=== PATIENT | female | born 1930 | race Caucasian/White ===

== ENCOUNTER 2016-05-15 15:41 | Inpatient (IN) | payer MEDICARE, BC ==
--- NOTE | 2016-05-15 16:14 | ED ---
General Adult HPI - General Chief complaint: Chest Pain Stated complaint: chest pain Time Seen by Provider: 05/15/16 15:50 Source: patient, RN notes reviewed Mode of arrival: wheelchair Limitations: no limitations - History of Present Illness Initial comments: This is an 86-year-old female who presents emergency Department after having visited her primary medical care doctor. Patient comes in stating she is here because she has generalized weakness which is been ongoing for about a week. Patient also states she's had a sore throat for about a week. Patient also complains of chest pain which is been intermittent over the last couple of weeks and shortness of breath which is also intermittent over the last couple weeks. Patient states she has a past medical history significant for asthma. Patient states she went to her doctor's told him the same complaints he didn't EKG and sent to the emergency department. We have not received a phone call from the primary medical care doctor. Patient denies headache patient denies any numbness or weakness. Patient denies any lightheadedness dizziness or near syncopal episode. Patient denies any abdominal pain patient denies nausea or vomiting. - Related Data Home Medications Medication Instructions Recorded Confirmed Calcium Carbonate/Vitamin D3 1 tab PO BID 02/14/14 05/15/16 [Calcium 600-Vit D3 400 Tablet] Docusate [Colace] 100 mg PO QAM PRN 02/14/14 05/15/16 Fluticasone/Salmeterol [Advair 1 inhalation PO RT-BID 02/14/14 05/15/16 250-50 Diskus] Ipratropium-Albuterol Nebulize 3 ml IH RT-QID PRN 02/14/14 05/15/16 [Duoneb 0.5 mg-3 mg/3 ml Soln] Levothyroxine Sodium [Synthroid] 125 mcg PO DAILY 02/14/14 05/15/16 Montelukast [Singulair] 10 mg PO HS 02/14/14 05/15/16 Omeprazole [PriLOSEC] 20 mg PO AC-BRKFST 02/14/14 05/15/16 Ramipril [Altace] 10 mg PO QAM 02/14/14 05/15/16 Simvastatin [Zocor] 40 mg PO HS 02/14/14 05/15/16 Solifenacin Succinate [Vesicare] 5 mg PO QAM 02/14/14 05/15/16 Alendronate Sodium [Fosamax] 70 mg PO MO 08/04/14 05/15/16 Acetaminophen [Tylenol] 325 - 650 mg PO Q4H PRN 08/05/14 05/15/16 Albuterol Inhaler [Ventolin Hfa 1 - 2 puff INHALATION RT-Q6H PRN 08/05/14 Inhaler] Aricept 23mg 23 mg PO DAILY 05/15/16 05/15/16 LORazepam [Ativan] 0.5 mg PO BID 05/15/16 05/15/16 Vilazodone Hydrochloride [Viibryd] 20 mg PO DAILY 05/15/16 05/15/16 amLODIPine BESYLATE [Norvasc] 5 mg PO HS 05/15/16 05/15/16 Allergies Allergy/AdvReac Type Severity Reaction Status Date / Time No Known Allergies Allergy Verified 05/15/16 16:18 Review of Systems ROS Statement: Those systems with pertinent positive or pertinent negative responses have been documented in the HPI. ROS Other: All systems not noted in ROS Statement are negative. Past Medical History Past Medical History: Asthma, GERD/Reflux, Hyperlipidemia, Hypertension, Memory Impairment, Thyroid Disorder Additional Past Medical History / Comment(s): hypoglycemia, shingles long time ago History of Any Multi-Drug Resistant Organisms: None Reported Past Surgical History: No Surgical Hx Reported Additional Past Surgical History / Comment(s): rectocele repair, cataracts Past Anesthesia/Blood Transfusion Reactions: No Reported Reaction Past Psychological History: Depression Smoking Status: Former smoker Past Alcohol Use History: None Reported Additional Past Alcohol Use History / Comment(s): started smoking at age 19 smoked 1 ppd quit at age 47 Past Drug Use History: None Reported - Past Family History Father Family Medical History: Myocardial Infarction ([place]) Mother History Unknown: Yes General Exam - General Exam Comments Initial Comments: GENERAL: Patient is well-developed and well-nourished. Patient is nontoxic and well- hydrated and is in mild distress. ENT: Neck is soft and supple. No significant lymphadenopathy is noted. Oropharynx is clear. Moist mucous membranes. Neck has full range of motion without eliciting any pain. EYES: The sclera were anicteric and conjunctiva were pink and moist. Extraocular movements were intact and pupils were equal round and reactive to light. Eyelids were unremarkable. PULMONARY: Unlabored respirations. Good breath sounds bilaterally. She has slight expiratory wheezing. CARDIOVASCULAR: There is a regular rate and rhythm without any murmurs gallops or rubs. ABDOMEN: Soft and nontender with normal bowel sounds. No palpable organomegaly was noted. There is no palpable pulsatile mass. SKIN: Skin is clear with no lesions or rashes and otherwise unremarkable. NEUROLOGIC: Patient is alert and oriented x3. Cranial nerves II through XII are grossly intact. Motor and sensory are also intact. Normal speech, volume and content. Symmetrical smile. MUSCULOSKELETAL: Normal extremities with adequate strength and full range of motion. No lower extremity swelling or edema. No calf tenderness. LYMPHATICS: No significant lymphadenopathy is noted PSYCHIATRIC: Normal psychiatric evaluation. Normal interpersonal interactions appears functionally intact in deals appropriately with others. No signs of depression. No signs of anxiety. Limitations: no limitations Course Vital Signs 05/15/16 05/15/16 05/15/16 15:44 16:10 17:47 Temperature 97.6 F 97.1 F L Pulse Rate 60 95 Respiratory 16 22 16 Rate Blood Pressure 149/65 167/74 O2 Sat by Pulse 93 L 97 Oximetry 05/15/16 05/15/16 18:48 19:00 Temperature 978 F H 97.5 F L Pulse Rate 74 55 L Respiratory 20 20 Rate Blood Pressure 146/68 O2 Sat by Pulse 97 95 Oximetry Medical Decision Making - Medical Decision Making EKG shows sinus bradycardia 58 bpm. It was 152 QRS is 86 QT intervals 442 QTC is 433. Patient's EKG shows no ST segment elevation or depression or T wave abnormalities are noted. - Lab Data Result diagrams: 05/15/16 16:00 05/15/16 16:00 Lab Results 05/15/16 05/15/16 05/15/16 Range/Units 16:00 16:00 16:00 WBC 4.9 (3.8-10.6) k/uL RBC 3.99 (3.80-5.40) m/uL Hgb 12.9 (11.4-16.0) gm/dL Hct 38.2 (34.0-46.0) % MCV 95.8 (80.0-100.0) fL MCH 32.4 (25.0-35.0) pg MCHC 33.9 (31.0-37.0) g/dL RDW 13.5 (11.5-15.5) % Plt Count 166 (150-450) k/uL Neutrophils % 57 % Lymphocytes % 24 % Monocytes % 11 % Eosinophils % 3 % Basophils % 0 % Neutrophils # 2.8 (1.3-7.7) k/uL Lymphocytes # 1.2 (1.0-4.8) k/uL Monocytes # 0.5 (0-1.0) k/uL Eosinophils # 0.2 (0-0.7) k/uL Basophils # 0.0 (0-0.2) k/uL PT (9.0-12.0) sec INR (<1.1) APTT (22.0-30.0) sec Sodium 126 L (137-145) mmol/L Potassium 4.5 (3.5-5.1) mmol/L Chloride 93 L (98-107) mmol/L Carbon Dioxide 23 (22-30) mmol/L Anion Gap 10 mmol/L BUN 14 (7-17) mg/dL Creatinine 0.87 (0.52-1.04) mg/dL Est GFR (MDRD) Af Amer >60 (>60 ml/min/1.73 sqM) Est GFR (MDRD) Non-Af >60 (>60 ml/min/1.73 sqM) Glucose 139 H (74-99) mg/dL POC Glucose (mg/dL) (75-99) mg/dL POC Glu Country Director ID Calcium 9.0 (8.4-10.2) mg/dL Magnesium 2.0 (1.6-2.3) mg/dL Total Bilirubin 0.5 (0.2-1.3) mg/dL AST 45 H (14-36) U/L ALT 46 (9-52) U/L Alkaline Phosphatase 66 (38-126) U/L Total Creatine Kinase 210 H (30-135) U/L CK-MB (CK-2) 1.7 (0.0-2.4) ng/mL CK-MB (CK-2) Rel Index 0.8 Troponin I <0.012 (0.000-0.034) ng/mL NT-Pro-B Natriuret Pep pg/mL Total Protein 6.7 (6.3-8.2) g/dL Albumin 3.9 (3.5-5.0) g/dL Group A Strep Rapid (Negative) 05/15/16 05/15/16 05/15/16 Range/Units 16:00 16:00 16:20 WBC (3.8-10.6) k/uL RBC (3.80-5.40) m/uL Hgb (11.4-16.0) gm/dL Hct (34.0-46.0) % MCV (80.0-100.0) fL MCH (25.0-35.0) pg MCHC (31.0-37.0) g/dL RDW (11.5-15.5) % Plt Count (150-450) k/uL Neutrophils % % Lymphocytes % % Monocytes % % Eosinophils % % Basophils % % Neutrophils # (1.3-7.7) k/uL Lymphocytes # (1.0-4.8) k/uL Monocytes # (0-1.0) k/uL Eosinophils # (0-0.7) k/uL Basophils # (0-0.2) k/uL PT 10.2 (9.0-12.0) sec INR 1.0 (<1.1) APTT 25.9 (22.0-30.0) sec Sodium (137-145) mmol/L Potassium (3.5-5.1) mmol/L Chloride (98-107) mmol/L Carbon Dioxide (22-30) mmol/L Anion Gap mmol/L BUN (7-17) mg/dL Creatinine (0.52-1.04) mg/dL Est GFR (MDRD) Af Amer (>60 ml/min/1.73 sqM) Est GFR (MDRD) Non-Af (>60 ml/min/1.73 sqM) Glucose (74-99) mg/dL POC Glucose (mg/dL) (75-99) mg/dL POC Glu Country Director ID Calcium (8.4-10.2) mg/dL Magnesium (1.6-2.3) mg/dL Total Bilirubin (0.2-1.3) mg/dL AST (14-36) U/L ALT (9-52) U/L Alkaline Phosphatase (38-126) U/L Total Creatine Kinase (30-135) U/L CK-MB (CK-2) (0.0-2.4) ng/mL CK-MB (CK-2) Rel Index Troponin I (0.000-0.034) ng/mL NT-Pro-B Natriuret Pep 91 pg/mL Total Protein (6.3-8.2) g/dL Albumin (3.5-5.0) g/dL Group A Strep Rapid Negative (Negative) 05/15/16 Range/Units 19:26 WBC (3.8-10.6) k/uL RBC (3.80-5.40) m/uL Hgb (11.4-16.0) gm/dL Hct (34.0-46.0) % MCV (80.0-100.0) fL MCH (25.0-35.0) pg MCHC (31.0-37.0) g/dL RDW (11.5-15.5) % Plt Count (150-450) k/uL Neutrophils % % Lymphocytes % % Monocytes % % Eosinophils % % Basophils % % Neutrophils # (1.3-7.7) k/uL Lymphocytes # (1.0-4.8) k/uL Monocytes # (0-1.0) k/uL Eosinophils # (0-0.7) k/uL Basophils # (0-0.2) k/uL PT (9.0-12.0) sec INR (<1.1) APTT (22.0-30.0) sec Sodium (137-145) mmol/L Potassium (3.5-5.1) mmol/L Chloride (98-107) mmol/L Carbon Dioxide (22-30) mmol/L Anion Gap mmol/L BUN (7-17) mg/dL Creatinine (0.52-1.04) mg/dL Est GFR (MDRD) Af Amer (>60 ml/min/1.73 sqM) Est GFR (MDRD) Non-Af (>60 ml/min/1.73 sqM) Glucose (74-99) mg/dL POC Glucose (mg/dL) 119 H (75-99) mg/dL POC Glu Country Director ID Anger, Ginger Calcium (8.4-10.2) mg/dL Magnesium (1.6-2.3) mg/dL Total Bilirubin (0.2-1.3) mg/dL AST (14-36) U/L ALT (9-52) U/L Alkaline Phosphatase (38-126) U/L Total Creatine Kinase (30-135) U/L CK-MB (CK-2) (0.0-2.4) ng/mL CK-MB (CK-2) Rel Index Troponin I (0.000-0.034) ng/mL NT-Pro-B Natriuret Pep pg/mL Total Protein (6.3-8.2) g/dL Albumin (3.5-5.0) g/dL Group A Strep Rapid (Negative) Disposition Clinical Impression: Unstable angina pectoris Disposition: ADMITTED IP TO THIS HOSP
[2016-05-15] MEDS ORDERED: NITROGLYCERIN OINT 1 INCH/GM PACKET TOPICAL STA (18:24)
[2016-05-15] MEDS ORDERED: SODIUM CHLORIDE 0.9% 500 ML IV STA (18:24)
[2016-05-15] MEDS ORDERED: ASPIRIN 81 MG CHEW PO STA (18:24)
[2016-05-15 19:11] LABS: Basophils % (A) 0 %; CH 32.2; CHCM 33.8; Eosinophils # (A) 0.2 k/uL (0-0.7); Eosinophils % (A) 3 %; HCT 38.2 % (34.0-46.0); HDW 2.35; HGB 12.9 gm/dL (11.4-16.0); Luc % (Auto) 4; Lymphocytes # (A) 1.2 k/uL (1.0-4.8); Lymphocytes % (A) 24 %; MCH 32.4 pg (25.0-35.0); MCHC 33.9 g/dL (31.0-37.0); MCV 95.8 fL (80.0-100.0); Mean Platelet Volume 7.5; Monocytes # (A) 0.5 k/uL (0-1.0); Monocytes % (A) 11 %; Neutrophils # (A) 2.8 k/uL (1.3-7.7); Neutrophils % (A) 57 %; RBC 3.99 m/uL (3.80-5.40); RDW 13.5 % (11.5-15.5); WBC 4.9 k/uL (3.8-10.6); WBC (Perox) 4.78
[2016-05-15 19:12] LABS: Partial Thromboplastin Time 25.9 sec (22.0-30.0); Prothrombin Time 10.2 sec (9.0-12.0)
[2016-05-15 19:13] LABS: ALT 46 U/L (9-52); AST 45 U/L (14-36); Alkaline Phosphatase 66 U/L (38-126); Anion Gap 10 mmol/L; Blood Urea Nitrogen 14 mg/dL (7-17); Carbon Dioxide 23 mmol/L (22-30); Chloride 93 mmol/L (98-107); Glucose 139 mg/dL (74-99); Non-African American GFR(MDRD) >60 (>60 ml/min/1.73 sqM); Potassium 4.5 mmol/L (3.5-5.1); Sodium 126 mmol/L (137-145); Total Bilirubin 0.5 mg/dL (0.2-1.3); Total Protein 6.7 g/dL (6.3-8.2)
[2016-05-15 19:14] LABS: Creatine Kinase 210 U/L (30-135)
[2016-05-15 19:26] LABS: Creatine Kinase MB 1.7 ng/mL (0.0-2.4); Troponin I <0.012 ng/mL (0.000-0.034)
[2016-05-15 19:28] LABS: Glucose,Whole Blood 119 mg/dL (75-99)
--- NOTE | 2016-05-15 20:04 | XR ---
EXAMINATION TYPE: XR chest 2V DATE OF EXAM: 05/15/2016 7:44 PM COMPARISON: February 14, 2014 HISTORY: Pain TECHNIQUE: Frontal and 2 lateral views of the chest are obtained. FINDINGS: EKG leads noted. Mildly enlarged cardiac silhouette noted. There is no pulmonary edema. Senescent changes are noted. Chronic scattered mild pleural parenchymal changes are redemonstrated, w ithout definite new process evident. These changes include nonspecific bibasilar opacities. There is no focal air space opacity to suggest sridevi pneumonia. There is no pleural effusion, or pneumothorax. The osseous structures are intact. IMPRESSION: NO DEFINITE ACUTE CARDIOPULMONARY PROCESS.
[2016-05-15 20:46] LABS: Appearance,Urine Clear (Clear); Bacteria,Urine Occasional /hpf; Bilirubin,Urine Negative (Negative); Glucose,Urine (UA) Negative (Negative); Ketones,Urine Negative (Negative); Leukocyte Esterase,Urine Negative (Negative); Mucus,Urine Rare /hpf; Nitrite,Urine Negative (Negative); PH, Urine 5.5 (5.0-8.0); Particle Count 6973; Protein,Urine Negative (Negative); RBC,Urine 2 /hpf (0-5); Specific Gravity,Urine 1.006 (1.001-1.035); Squamous Epithelial Cell,Urine <1 /hpf (0-4); UA Billing (MACRO vs. MICRO) MICRO; Urobilinogen,Urine <2.0 mg/dL (<2.0); WBC,Urine 2 /hpf (0-5)
[2016-05-15] MEDS ORDERED: NITROGLYCERIN SL TABS 0.4 MG TAB SUBLINGUAL PRN (20:49)
[2016-05-15 22:26] LABS: Creatine Kinase 212 U/L (30-135)
[2016-05-15 22:39] LABS: Creatine Kinase MB 1.7 ng/mL (0.0-2.4); Troponin I <0.012 ng/mL (0.000-0.034)
[2016-05-15 22:43] VITALS: BMI 30.7
[2016-05-15] MEDS ORDERED: LORazepam 0.5 MG TAB PO PRN (23:29)
[2016-05-15] MEDS ORDERED: ACETAMINOPHEN TAB 325 MG TAB PO PRN (23:29)
[2016-05-15] MEDS ORDERED: DOCUSATE 100 MG CAP PO PRN (23:29)
[2016-05-15] MEDS ORDERED: ALBUTEROL NEBULIZED 2.5 MG/3 ML INHALATION PRN (23:29)
[2016-05-15] MEDS ORDERED: HYDROCORTISONE SUCCINATE 100 MG/2 ML VIAL IV STA (23:36)
[2016-05-16] MEDS: SODIUM CHLORIDE 0.9% 1,000 ML IV SCH ×2 (00:05→14:02)
[2016-05-16] MEDS: amLODIPine 5 MG TAB PO SCH ×2 (00:06→20:07)
[2016-05-16] MEDS: NITROGLYCERIN OINT 1 INCH/GM PACKET TOPICAL SCH ×5 (00:26→23:29)
[2016-05-16 04:21] LABS: Cholesterol 123 mg/dL (<200); HDL Cholesterol 75 mg/dL (40-60); Triglycerides 34 mg/dL (<150)
[2016-05-16 04:40] LABS: Creatine Kinase 201 U/L (30-135)
[2016-05-16 04:54] LABS: Creatine Kinase MB 1.8 ng/mL (0.0-2.4); Troponin I <0.012 ng/mL (0.000-0.034)
[2016-05-16 06:02] LABS: Glucose,Whole Blood 146 mg/dL (75-99)
[2016-05-16] MEDS: PANTOPRAZOLE 40 MG TABLET PO SCH (06:05)
[2016-05-16] MEDS: HYDROCORTISONE SUCCINATE 100 MG/2 ML VIAL IV SCH ×4 (06:05→23:28)
[2016-05-16] MEDS: INSULIN LISPRO (humaLOG) 300 UNIT/3 ML VIAL SQ SCH ×4 (06:13→22:04)
[2016-05-16 06:26] LABS: Basophils % (A) 0 %; CH 32.3; CHCM 33.4; Eosinophils % (A) 0 %; HCT 38.2 % (34.0-46.0); HDW 2.36; HGB 12.6 gm/dL (11.4-16.0); Luc # (Auto) 0.11; Luc % (Auto) 2; Lymphocytes # (A) 0.8 k/uL (1.0-4.8); Lymphocytes % (A) 15 %; MCH 32.2 pg (25.0-35.0); MCHC 33.2 g/dL (31.0-37.0); MCV 97.1 fL (80.0-100.0); Mean Platelet Volume 6.9; Monocytes # (A) 0.2 k/uL (0-1.0); Monocytes % (A) 4 %; Neutrophils # (A) 3.9 k/uL (1.3-7.7); Neutrophils % (A) 78 %; RBC 3.93 m/uL (3.80-5.40); RDW 13.5 % (11.5-15.5); WBC (Perox) 5.08
[2016-05-16 06:37] LABS: ALT 49 U/L (9-52); AST 41 U/L (14-36); Alkaline Phosphatase 64 U/L (38-126); Anion Gap 9 mmol/L; Blood Urea Nitrogen 11 mg/dL (7-17); Calcium 8.8 mg/dL (8.4-10.2); Carbon Dioxide 26 mmol/L (22-30); Chloride 99 mmol/L (98-107); Glucose 149 mg/dL (74-99); Non-African American GFR(MDRD) >60 (>60 ml/min/1.73 sqM); Sodium 134 mmol/L (137-145); Total Bilirubin 0.3 mg/dL (0.2-1.3); Total Protein 6.3 g/dL (6.3-8.2)
[2016-05-16] MEDS ORDERED: OSELTAMIVIR 75 MG CAP PO SCH (09:00)
[2016-05-16] MEDS ORDERED: VILAZODONE HYDROCHLORIDE 20 MG PO SCH (09:00)
[2016-05-16] MEDS ORDERED: OXYBUTYNIN XL 5 MG TAB.ER.24 PO SCH (09:00)
[2016-05-16] MEDS: DONEPEZIL 10 MG TAB PO SCH (09:10)
[2016-05-16] MEDS: ASPIRIN 325 MG TAB PO SCH (09:10)
[2016-05-16] MEDS: LEVOTHYROXINE 125 MCG TAB PO SCH (09:10)
[2016-05-16] MEDS: CALCIUM CARB-VIT D 500MG-200UN 1 EACH TAB PO SCH ×2 (09:10→20:07)
[2016-05-16] MEDS: LISINOPRIL 20 MG TAB PO SCH (09:11)
[2016-05-16] MEDS: IPRATROPIUM-ALBUTEROL 3 ML NEB IH PRN ×2 (09:34→13:31)
[2016-05-16] MEDS: SYMBICORT 80-4.5 MCG INHALER INHALATION SCH ×2 (09:34→20:33)
--- NOTE | 2016-05-16 11:12 | CONS ---
DATE OF CONSULTATION: Patient admitted to the hospital with symptoms of not feeling well, generalized weakness for a week, mild productive sputum with yellowish in color. Patient is positive for influenza A. Patient is being treated with the appropriate medications as she has asthma. Per patient lives in [facility]. Patient is a for 9 years, has 2 daughters and 1 son. Patient went to the doctor and being admitted for not feeling well. Need to rule out possibility of any blood clots. Will get an echocardiogram and d-dimer just to make sure patient is not having any other associated problems. Complaints of no definite chest pain and associated with some cough. Patient's medications prior to admission include Calcium carbonate, vitamin D 1 tablet p.o. b.i.d., Colace 100 mg p.r.n., fluticasone, Advair Diskus 1 inhalation twice daily, albuterol inhaler, levothyroxine 135 mcg, Singulair 10 mg p.o. daily, omeprazole 20 mg p.o. daily, enalapril 10 mg, simvastatin 40 mg, VESIcare 5 mg p.o. daily, Fosamax 70 mg monthly, amlodipine 5 mg p.o. daily, Viibryd 20 mg p.o. daily, lorazepam 0.5 mg p.o. b.i.d. Patient's review of systems are essentially unremarkable. History of asthma, history of hyperlipidemia, hypertension, memory impairment and patient is a former smoker and history of rectocele repair and cataracts. Patient has influenza A. Physical examination revealed well-developed, well-nourished, 86-year-old female not in any acute distress, alert and oriented x3 with a pulse rate of 54 beats per minute and regular, blood pressure of 142/73, respirations of 18. HEAD: Normocephalic. HEENT unremarkable. Neck is supple. No thyroid enlargement. No bruit noted. Good carotid upstroke bilaterally. Chest is symmetrical. CARDIAC EXAMINATION: Regular rate and rhythm, S1 and S2. No gallops or murmurs. Lungs are clinically clear to auscultation and percussion. Abdomen is soft, no organomegaly. Active bowel sounds. EXTREMITIES: Peripheral pulses. No pedal edema. 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 Troponins X2 are negative and EKGs are normal sinus rhythm without any acute ischemic changes. CPK total is only 201. There is no increased for WBC, hemoglobin is 12.6, hematocrit 38.2. IMPRESSION: 1. Patient has aches and pains possibly secondary to influenza. 2. Rule out pulmonary embolism, Rule out any deep venous thrombosis. No evidence of any polymyositis or rubs. 3. Kidney functions are within normal limits. RECOMMENDATIONS: Continue hydration and supportive care. We get an echocardiogram to assess LV function.
--- NOTE | 2016-05-16 11:26 | ECHOF ---
Referral Reason:lv function MEASUREMENTS -------- HEIGHT: 165.1 cm WEIGHT: 82.1 kg BP: 132/72 RVIDd: 3.3 cm (< 3.3) IVSd: 1.3 cm (0.6 - 1.1) LVIDd: 4.5 cm (3.9 - 5.3) LVPWd: 1.2 cm (0.6 - 1.1) IVSs: 2.0 cm LVIDs: 3.1 cm LVPWs: 1.9 cm LA Diam: 3.7 cm (2.7 - 3.8) Ao Diam: 3.1 cm (2.0 - 3.7) AV Cusp: 2.1 cm (1.5 - 2.6) MV E Skinny: 0.91 m/s MV DecT: 404 ms MV A Skinny: 1.42 m/s MV E/A Ratio: 0.64 AV maxP.13 mmHg AV meanP.65 mmHg FINDINGS -------- Sinus rhythm. This was a technically difficult study with suboptimal views. The left ventricular size is normal. There is mild concentric left ventricular hypertrophy. There is normal global left ventricular contractility. Overall left ventricular systolic function is normal with, an EF between 55 - 60 %. The right ventricle is mildly enlarged. The left atrial size is normal. The right atrium is normal in size. The aortic valve was not well visualized. There is mild aortic stenosis present. Peak/mean gradient across the Aortic Valve is 14.13mmHg / 7.65mmHg. The mitral valve is normal. The tricuspid valve was not well visualized. The pulmonic valve was not well visualized. The aortic root, ascending aorta and aortic arch are normal. Normal inferior vena cava with normal inspiratory collapse consistent with estimated right atrial pressure of 5 mmHg. There is no pericardial effusion. CONCLUSIONS -------- 1. Sinus rhythm. 2. The mitral valve is normal. 3. The tricuspid valve was not well visualized. 4. The pulmonic valve was not well visualized. 5. The aortic root, ascending aorta and aortic arch are normal. 6. Normal inferior vena cava with normal inspiratory collapse consistent with estimated right atrial pressure of 5 mmHg. 7. There is no pericardial effusion. 8. This was a technically difficult study with suboptimal views. 9. There is mild concentric left ventricular hypertrophy. 10. There is normal global left ventricular contractility. 11. The right ventricle is mildly enlarged. 12. The left atrial size is normal. 13. The aortic valve was not well visualized. 14. There is mild aortic stenosis present. 15. Peak/mean gradient across the Aortic Valve is 14.13mmHg / 7.65mmHg. CAD INTERN: Theresa Flynn RDCS
[2016-05-16 11:40] LABS: Glucose,Whole Blood 215 mg/dL (75-99)
--- NOTE | 2016-05-16 11:49 | P.HPIM ---
History of Present Illness 86-year-old female for presented to family practice physician with complaints of intermittent chest pain for one week. Also noted shortness of breath and cough. Patient was sent to the emergency room for evaluation. In the office noted EKG changes with inverted T waves in the one of the two. Patient was found to have influenza A. Patient to be admitted for on cardiology and pulmonology workup Review of Systems Constitutional: Reports fatigue, Reports fever Cardiovascular: Reports chest pain Respiratory: Reports congestion, Reports cough Past Medical History Past Medical History: Asthma, GERD/Reflux, Hyperlipidemia, Hypertension, Memory Impairment, Thyroid Disorder Additional Past Medical History / Comment(s): hypoglycemia, shingles long time ago History of Any Multi-Drug Resistant Organisms: None Reported Past Surgical History: No Surgical Hx Reported Additional Past Surgical History / Comment(s): rectocele repair, cataracts Past Anesthesia/Blood Transfusion Reactions: No Reported Reaction Past Psychological History: Depression Smoking Status: Former smoker Past Alcohol Use History: None Reported Additional Past Alcohol Use History / Comment(s): started smoking at age 19 smoked 1 ppd quit at age 47 Past Drug Use History: None Reported - Past Family History Father Family Medical History: Myocardial Infarction ([place]) Mother History Unknown: Yes Medications and Allergies Home Medications Medication Instructions Recorded Confirmed Type Calcium Carbonate/Vitamin D3 1 tab PO BID 02/14/14 05/15/16 History [Calcium 600-Vit D3 400 Tablet] Docusate [Colace] 100 mg PO QAM PRN 02/14/14 05/15/16 History Fluticasone/Salmeterol [Advair 1 inhalation PO RT-BID 02/14/14 05/15/16 History 250-50 Diskus] Ipratropium-Albuterol Nebulize 3 ml IH RT-QID PRN 02/14/14 05/15/16 History [Duoneb 0.5 mg-3 mg/3 ml Soln] Levothyroxine Sodium [Synthroid] 125 mcg PO DAILY 02/14/14 05/15/16 History Montelukast [Singulair] 10 mg PO HS 02/14/14 05/15/16 History Omeprazole [PriLOSEC] 20 mg PO AC-BRKFST 02/14/14 05/15/16 History Ramipril [Altace] 10 mg PO QAM 02/14/14 05/15/16 History Simvastatin [Zocor] 40 mg PO HS 02/14/14 05/15/16 History Solifenacin Succinate [Vesicare] 5 mg PO QAM 02/14/14 05/15/16 History Alendronate Sodium [Fosamax] 70 mg PO MO 08/04/14 05/15/16 History Acetaminophen [Tylenol] 325 - 650 mg PO Q4H PRN 08/05/14 05/15/16 History Albuterol Inhaler [Ventolin Hfa 1 - 2 puff INHALATION RT-Q6H PRN 08/05/14 History Inhaler] Aricept 23mg 23 mg PO DAILY 05/15/16 05/15/16 History LORazepam [Ativan] 0.5 mg PO BID 05/15/16 05/15/16 History Vilazodone Hydrochloride [Viibryd] 20 mg PO DAILY 05/15/16 05/15/16 History amLODIPine BESYLATE [Norvasc] 5 mg PO HS 05/15/16 05/15/16 History Allergies Allergy/AdvReac Type Severity Reaction Status Date / Time No Known Allergies Allergy Verified 05/15/16 16:18 Physical Exam Vitals: Vital Signs Temp Pulse Pulse Resp BP BP Pulse Ox 05/16/16 09:49 68 05/16/16 09:35 64 05/16/16 08:00 98.2 F 56 L 20 132/72 94 L 05/16/16 04:00 97.0 F L 51 L 18 142/73 95 05/16/16 00:46 56 L 05/16/16 00:36 56 L 05/16/16 00:00 97.9 F 60 19 147/76 91 L 05/15/16 21:11 97.9 F 57 L 20 156/75 93 L 05/15/16 21:05 97.3 F L 64 22 146/68 96 Intake and Output 05/15/16 05/16/16 05/16/16 22:59 06:59 14:59 Intake Total 500 540 Output Total 550 300 Balance 500 -10 -300 Intake: Amount of Fluid Infused ( 500 ml) Intake, IV Titration 540 Amount Sodium Chloride 0.9% 1, 490 000 ml @ 70 mls/hr IV . [id number] [facility] Rx#:[id number] 1,000 mg In 50 Sodium Chloride 0.9% 50 ml @ 100 mls/hr IVPB Q24H [facility] Rx#:[id number] Output: Urine 550 300 Other: Voiding Method Toilet Toilet # Voids 350 1 Weight 83.9 kg 82.7 kg - Constitutional General appearance: obese - EENT Eyes: PERRLA Ears: bilateral: normal - Neck Neck: normal ROM - Respiratory Respiratory: bilateral: rhonchi, wheezing - Cardiovascular Rhythm: regular - Gastrointestinal General gastrointestinal: soft - Integumentary Integumentary: normal - Neurologic Neurologic: CNII-XII intact - Musculoskeletal Musculoskeletal: generalized weakness - Psychiatric Psychiatric: A&O x's 3, appropriate affect, intact judgment & insight Results CBC & Chem 7: 05/16/16 05:49 05/16/16 05:49 Labs: Abnormal Lab Results - Last 24 Hours (Table) 05/15/16 05/15/16 05/16/16 Range/Units 21:45 23:49 03:44 Lymphocytes # (1.0-4.8) k/uL D-Dimer (<0.60) mg/L FEU Sodium (137-145) mmol/L Glucose (74-99) mg/dL POC Glucose (mg/dL) (75-99) mg/dL AST (14-36) U/L Total Creatine Kinase 212 H 201 H (30-135) U/L HDL Cholesterol (40-60) mg/dL Influenza Type A RNA Detected H (Not Detectd) 05/16/16 05/16/16 05/16/16 Range/Units 03:44 05:49 05:49 Lymphocytes # 0.8 L (1.0-4.8) k/uL D-Dimer (<0.60) mg/L FEU Sodium 134 L (137-145) mmol/L Glucose 149 H (74-99) mg/dL POC Glucose (mg/dL) (75-99) mg/dL AST 41 H (14-36) U/L Total Creatine Kinase (30-135) U/L HDL Cholesterol 75 H (40-60) mg/dL Influenza Type A RNA (Not Detectd) 05/16/16 05/16/16 05/16/16 Range/Units 05:53 10:48 11:15 Lymphocytes # (1.0-4.8) k/uL D-Dimer 1.12 H (<0.60) mg/L FEU Sodium (137-145) mmol/L Glucose (74-99) mg/dL POC Glucose (mg/dL) 146 H 215 H (75-99) mg/dL AST (14-36) U/L Total Creatine Kinase (30-135) U/L HDL Cholesterol (40-60) mg/dL Influenza Type A RNA (Not Detectd) Chest x-ray: report reviewed Thrombosis Risk Factor Assmnt - Choose All That Apply Any of the Below Risk Factors Present?: No Each Risk Factor Represents 3 Points: Age 75 years or older Thrombosis Risk Factor Assessment Total Risk Factor Score: 3 Thrombosis Risk Factor Assessment Level: Moderate Risk Assessment and Plan Plan: Assessment chest pain influenza A history of asthma history of GERD hyperlipidemia hypertension memory impairment hypothyroidism Plan consultation with cardiology regarding chest pain and EKG changes consultation with pulmonology regarding influenza A and a history of asthma patient was started Tamiflu
[2016-05-16 14:12] LABS: Glucose,Whole Blood 234 mg/dL (75-99)
--- NOTE | 2016-05-16 14:14 | P.CNPUL ---
History of Present Illness Consult date: 05/16/16 Requesting physician: Jose M Robertson Reason for consult: chest pain Chief complaint: Progressive weakness, sore throat shortness of breath History of present illness: This is a very pleasant 86-year-old female patient who follows with Dr. Jose M Robertson is her primary care physician. She has a history of hyperlipidemia, hypertension, hypothyroidism, gastroesophageal reflux disease. She also has a history of chronic obstructive pulmonary disease from previous 28 year smoking history and follows with Dr. Weeks in our office for the same. She is not oxygen dependent. She is maintained on Advair and albuterol. She had presented to her PCPs office yesterday for ongoing generalized weakness and sore throat for about a week. She did develop subsequent shortness of breath and some complaints of chest pain and was seen in the emergency room for the same. Her chest x-ray revealed no acute pulmonary process. EKG reveals no significant ST or T-wave abnormalities. Echocardiogram reveals preserved left ventricular systolic function. She did test positive for influenza A and was admitted for the same. There is no leukocytosis. She has remained afebrile. She is maintaining O2 saturations in the low 90s on room air. Hemodynamically stable. Review of Systems 14 point review of system was conducted. All negative other than as mentioned in HPI. Past Medical History Past Medical History: Asthma, GERD/Reflux, Hyperlipidemia, Hypertension, Memory Impairment, Thyroid Disorder Additional Past Medical History / Comment(s): hypoglycemia, shingles long time ago History of Any Multi-Drug Resistant Organisms: None Reported Past Surgical History: No Surgical Hx Reported Additional Past Surgical History / Comment(s): rectocele repair, cataracts Past Anesthesia/Blood Transfusion Reactions: No Reported Reaction Past Psychological History: Depression Smoking Status: Former smoker Past Alcohol Use History: None Reported Additional Past Alcohol Use History / Comment(s): started smoking at age 19 smoked 1 ppd quit at age 47 Past Drug Use History: None Reported - Past Family History Father Family Medical History: Myocardial Infarction ([place]) Mother History Unknown: Yes Medications and Allergies Home Medications Medication Instructions Recorded Confirmed Type Calcium Carbonate/Vitamin D3 1 tab PO BID 02/14/14 05/15/16 History [Calcium 600-Vit D3 400 Tablet] Docusate [Colace] 100 mg PO QAM PRN 02/14/14 05/15/16 History Fluticasone/Salmeterol [Advair 1 inhalation PO RT-BID 02/14/14 05/15/16 History 250-50 Diskus] Ipratropium-Albuterol Nebulize 3 ml IH RT-QID PRN 02/14/14 05/15/16 History [Duoneb 0.5 mg-3 mg/3 ml Soln] Levothyroxine Sodium [Synthroid] 125 mcg PO DAILY 02/14/14 05/15/16 History Montelukast [Singulair] 10 mg PO HS 02/14/14 05/15/16 History Omeprazole [PriLOSEC] 20 mg PO AC-BRKFST 02/14/14 05/15/16 History Ramipril [Altace] 10 mg PO QAM 02/14/14 05/15/16 History Simvastatin [Zocor] 40 mg PO HS 02/14/14 05/15/16 History Solifenacin Succinate [Vesicare] 5 mg PO QAM 02/14/14 05/15/16 History Alendronate Sodium [Fosamax] 70 mg PO MO 08/04/14 05/15/16 History Acetaminophen [Tylenol] 325 - 650 mg PO Q4H PRN 08/05/14 05/15/16 History Albuterol Inhaler [Ventolin Hfa 1 - 2 puff INHALATION RT-Q6H PRN 08/05/14 History Inhaler] Aricept 23mg 23 mg PO DAILY 05/15/16 05/15/16 History LORazepam [Ativan] 0.5 mg PO BID 05/15/16 05/15/16 History Vilazodone Hydrochloride [Viibryd] 20 mg PO DAILY 05/15/16 05/15/16 History amLODIPine BESYLATE [Norvasc] 5 mg PO HS 05/15/16 05/15/16 History Allergies Allergy/AdvReac Type Severity Reaction Status Date / Time No Known Allergies Allergy Verified 05/15/16 16:18 Physical Exam Vitals: Vital Signs Temp Pulse Pulse Resp BP BP Pulse Ox 05/16/16 13:44 60 05/16/16 13:31 60 05/16/16 12:00 97.1 F L 57 L 18 128/60 94 L 05/16/16 09:49 68 05/16/16 09:35 64 05/16/16 08:00 98.2 F 56 L 20 132/72 94 L 05/16/16 04:00 97.0 F L 51 L 18 142/73 95 05/16/16 00:46 56 L 05/16/16 00:36 56 L 05/16/16 00:00 97.9 F 60 19 147/76 91 L 05/15/16 21:11 97.9 F 57 L 20 156/75 93 L 05/15/16 21:05 97.3 F L 64 22 146/68 96 Intake and Output 05/15/16 05/16/16 05/16/16 22:59 06:59 14:59 Intake Total 500 540 240 Output Total 550 300 Balance 500 -10 -60 Intake: Amount of Fluid Infused ( 500 ml) Intake, IV Titration 540 Amount Sodium Chloride 0.9% 1, 490 000 ml @ 70 mls/hr IV . [id number] [facility] Rx#:[id number] cefTRIAXone 1,000 mg In 50 Sodium Chloride 0.9% 50 ml @ 100 mls/hr IVPB Q24H [facility] Rx#:[id number] Oral 240 Output: Urine 550 300 Other: Voiding Method Toilet Toilet # Voids 350 1 Weight 83.9 kg 82.7 kg 82.7 kg Patient Weight 05/17/16 06:59 Weight 82.7 kg GENERAL EXAM: Alert, comfortable in no apparent distress. HEAD: Normocephalic. EYES: Normal reaction of pupils, equal size. NOSE: Clear with pink turbinates. THROAT: No erythema or exudates. NECK: No masses, no JVD. CHEST: No chest wall deformity. LUNGS: Equal air entry with no crackles, wheeze, rhonchi or dullness. CVS: S1 and S2 normal with no audible mumurs, regular rhythm. ABDOMEN: No hepatosplenomegaly, normal bowel sounds, no guarding or rigidity. SPINE: No scoliosis or deformity SKIN: No rashes CENTRAL NERVOUS SYSTEM: No focal deficits, tone is normal in all 4 extremities. Extremities: There is no significant peripheral edema. No clubbing, no cyanosis. Peripheral pulses are intact. Results - Laboratory Findings CBC and BMP: 05/16/16 05:49 05/16/16 05:49 PT/INR, D-dimer PT 10.2 sec (9.0-12.0) 05/15/16 16:00 INR 1.0 (<1.1) 05/15/16 16:00 D-Dimer 1.12 mg/L FEU (<0.60) H 05/16/16 10:48 Abnormal lab findings: Abnormal Labs 05/15/16 05/15/16 05/16/16 21:45 23:49 03:44 Lymphocytes # D-Dimer Sodium Glucose POC Glucose (mg/dL) AST Total Creatine Kinase 212 H 201 H HDL Cholesterol Influenza Type A RNA Detected H 05/16/16 05/16/16 05/16/16 03:44 05:49 05:49 Lymphocytes # 0.8 L D-Dimer Sodium 134 L Glucose 149 H POC Glucose (mg/dL) AST 41 H Total Creatine Kinase HDL Cholesterol 75 H Influenza Type A RNA 05/16/16 05/16/16 05/16/16 05:53 10:48 11:15 Lymphocytes # D-Dimer 1.12 H Sodium Glucose POC Glucose (mg/dL) 146 H 215 H AST Total Creatine Kinase HDL Cholesterol Influenza Type A RNA - Diagnostic Findings Chest x-ray: image reviewed Assessment and Plan Plan: Impression: #1 Progressive weakness and fatigue secondary to influenza A. #2 Atypical chest pain, acute coronary syndrome ruled out. #3 Mild acute exacerbation of chronic obstructive pulmonary disease secondary to influenza. #4 Hypertension. #5 Hyperlipidemia. #6 Hypothyroidism. #7 7 History of memory impairment. #8 Depression. Plan: The patient was seen and evaluated by Dr. Hernandez. Her chest x-ray and labs were reviewed. We'll go ahead and continue with her home pulmonary medications including Advair, Singulair, bronchodilators. She is on hydrocortisone 60 mg IV every 6 hours. She is on empiric antibiotics in the form of ceftriaxone. She is continued on Tamiflu. She is quite stable from the pulmonary standpoint and could be discharged home later today or perhaps tomorrow morning. She could follow up with Dr. Harrington in our office in 1-2 weeks' time. We'll continue to follow. Time with Patient: Greater than 30
[2016-05-16 16:59] LABS: Glucose,Whole Blood 111 mg/dL (75-99)
[2016-05-16 20:54] LABS: Glucose,Whole Blood 150 mg/dL (75-99)
[2016-05-16] MEDS ORDERED: ATORVASTATIN 20 MG TAB PO SCH (21:00)
[2016-05-16] MEDS ORDERED: MONTELUKAST 10 MG TAB PO SCH (21:00)
[2016-05-16] MEDS: OSELTAMIVIR 60 MG/10 ML ORAL SYRINGE PO SCH (22:05)
[2016-05-17 06:17] LABS: Glucose,Whole Blood 131 mg/dL (75-99)
[2016-05-17 06:45] VITALS: RESP 20
[2016-05-17] MEDS: INSULIN LISPRO (humaLOG) 300 UNIT/3 ML VIAL SQ SCH (06:58)
[2016-05-17] MEDS: NITROGLYCERIN OINT 1 INCH/GM PACKET TOPICAL SCH (06:58)
[2016-05-17] MEDS: HYDROCORTISONE SUCCINATE 100 MG/2 ML VIAL IV SCH (06:58)
[2016-05-17] MEDS: SODIUM CHLORIDE 0.9% 1,000 ML IV SCH (06:58)
[2016-05-17] MEDS: PANTOPRAZOLE 40 MG TABLET PO SCH (06:58)
[2016-05-17] MEDS: SYMBICORT 80-4.5 MCG INHALER INHALATION SCH (08:52)
[2016-05-17 09:04] VITALS: TEMP 96.8
[2016-05-17] MEDS: DONEPEZIL 10 MG TAB PO SCH (09:12)
[2016-05-17] MEDS: ASPIRIN 325 MG TAB PO SCH (09:12)
[2016-05-17] MEDS: CALCIUM CARB-VIT D 500MG-200UN 1 EACH TAB PO SCH (09:12)
[2016-05-17] MEDS: LEVOTHYROXINE 125 MCG TAB PO SCH (09:12)
[2016-05-17] MEDS: LISINOPRIL 20 MG TAB PO SCH (09:12)
[2016-05-17] MEDS: OSELTAMIVIR 60 MG/10 ML ORAL SYRINGE PO SCH (09:13)
--- NOTE | 2016-05-17 11:01 | P.PN ---
Subjective Patient much improved coughing improved. Pulmonology states patient is stable to be discharged. Cardiology signed off the case. Patient states that her son wants her to spend one more night nonhospital. Unsure she could manage at home with meals Objective - Vital Signs Vital signs: Vital Signs Temp 96.8 F L 05/17/16 08:00 Pulse 63 05/17/16 08:00 Resp 20 05/17/16 08:00 BP 159/77 05/17/16 08:00 Pulse Ox 95 05/17/16 08:00 Intake & Output 05/16/16 05/17/16 05/17/16 18:59 06:59 18:59 Intake Total 600 210 120 Output Total 700 Balance -100 210 120 Weight 82.7 kg 82.7 kg Intake: IV 210 Sodium Chloride 0.9% 1, 210 000 ml @ 70 mls/hr IV . [id number] [facility] Rx#:[id number] Oral 600 120 Output: Urine 700 Other: Voiding Method Toilet Toilet # Voids 1 1 1 - Constitutional General appearance: Present: obese - EENT Eyes: Present: PERRLA Ears: bilateral: normal - Respiratory Respiratory: right: rhonchi - Cardiovascular Rhythm: regular - Gastrointestinal General gastrointestinal: Present: soft - Neurologic Neurologic: Present: CNII-XII intact - Musculoskeletal Musculoskeletal: Present: generalized weakness - Psychiatric Psychiatric Comment(s): Patient pleasantly confused this morning Psychiatric: Present: A&O x's 3, appropriate affect, intact judgment & insight - Labs CBC & Chem 7: 05/16/16 05:49 05/16/16 05:49 Labs: Abnormal Lab Results - Last 24 Hours (Table) 05/16/16 05/16/16 05/16/16 Range/Units 10:48 11:15 13:54 D-Dimer 1.12 H (<0.60) mg/L FEU POC Glucose (mg/dL) 215 H 234 H (75-99) mg/dL 05/16/16 05/16/16 05/17/16 Range/Units 16:56 20:53 06:16 D-Dimer (<0.60) mg/L FEU POC Glucose (mg/dL) 111 H 150 H 131 H (75-99) mg/dL Assessment and Plan Plan: Assessment Chest pain atypical Influenza A History of asthma History of GERD Hyperlipidemia Hypertension Memory impairment Hypothyroidism Plan Hopeful discharge soon Patient has been cleared by cardiology and pulmonology for discharge Patient may be transferred to regular medical floor
[2016-05-17 12:08] LABS: Glucose,Whole Blood 112 mg/dL (75-99)
--- NOTE | 2016-05-17 12:47 | P.PN ---
Subjective This is a very pleasant 86-year-old female patient who follows with Dr. Jose M Robertson is her primary care physician. She has a history of hyperlipidemia, hypertension, hypothyroidism, gastroesophageal reflux disease. She also has a history of chronic obstructive pulmonary disease from previous 28 year smoking history and follows with Dr. Weeks in our office for the same. She is not oxygen dependent. She is maintained on Advair and albuterol. She had presented to her PCPs office yesterday for ongoing generalized weakness and sore throat for about a week. She did develop subsequent shortness of breath and some complaints of chest pain and was seen in the emergency room for the same. Her chest x-ray revealed no acute pulmonary process. EKG reveals no significant ST or T-wave abnormalities. Echocardiogram reveals preserved left ventricular systolic function. She did test positive for influenza A and was admitted for the same. There is no leukocytosis. She has remained afebrile. She is maintaining O2 saturations in the low 90s on room air. Hemodynamically stable. The patient is seen again today 05/17/2016 in follow-up. She is awake and alert in no acute distress. She denies any worsening shortness of breath, cough or congestion. She's not had any nausea, vomiting or diarrhea. She does have some complaints of continued weakness and fatigue. She is influenza A positive. She is maintaining good O2 saturations in the mid 90s on room air. She is afebrile. Objective - Vital Signs Vital signs: Vital Signs Temp 96.8 F L 05/17/16 08:00 Pulse 63 05/17/16 08:00 Resp 20 05/17/16 08:00 BP 159/77 05/17/16 08:00 Pulse Ox 95 05/17/16 08:00 Intake & Output 05/16/16 05/17/16 05/17/16 18:59 06:59 18:59 Intake Total 600 210 120 Output Total 700 Balance -100 210 120 Weight 82.7 kg 82.7 kg Intake: IV 210 Sodium Chloride 0.9% 1, 210 000 ml @ 70 mls/hr IV . [id number] [facility] Rx#:[id number] Oral 600 120 Output: Urine 700 Other: Voiding Method Toilet Toilet # Voids 1 1 1 - Exam GENERAL EXAM: Alert, active, comfortable in no apparent distress. HEAD: Normocephalic. EYES: Normal reaction of pupils, equal size. NOSE: Clear with pink turbinates. THROAT: No erythema or exudates. NECK: No masses, no JVD. CHEST: No chest wall deformity. LUNGS: Equal air entry with no crackles, wheeze, rhonchi or dullness. CVS: S1 and S2 normal with no audible murmurs, regular rhythm. ABDOMEN: No hepatosplenomegaly, normal bowel sounds, no guarding or rigidity. SPINE: No scoliosis or deformity SKIN: No rashes CENTRAL NERVOUS SYSTEM: No focal deficits, tone is normal in all 4 extremities. Extremities: There is no significant peripheral edema. No clubbing, no cyanosis. Peripheral pulses are intact. - Labs CBC & Chem 7: 05/16/16 05:49 05/16/16 05:49 Labs: Abnormal Lab Results - Last 24 Hours (Table) 05/16/16 05/16/16 05/16/16 Range/Units 13:54 16:56 20:53 POC Glucose (mg/dL) 234 H 111 H 150 H (75-99) mg/dL 05/17/16 05/17/16 Range/Units 06:16 12:03 POC Glucose (mg/dL) 131 H 112 H (75-99) mg/dL Assessment and Plan Plan: Impression: #1 Progressive weakness and fatigue secondary to influenza A. #2 Atypical chest pain, acute coronary syndrome ruled out. #3 Mild acute exacerbation of chronic obstructive pulmonary disease secondary to influenza. #4 Hypertension. #5 Hyperlipidemia. #6 Hypothyroidism. #7 7 History of memory impairment. #8 Depression. Plan: The patient was seen and evaluated by Dr. Hernandez. She is stable from the pulmonary standpoint. We'll continue with her current medications. We'll increase her activity as tolerated. We'll continue to follow.
--- NOTE | 2016-05-17 12:50 | P.DS ---
Providers Date of admission: 05/15/16 20:49 Expected date of discharge: 05/17/16 Attending physician: Jose M Robertson Consults: 05/15/16 23:47 Consult Physician Routine Consulting Provider: Eloina Weeks Consult Reason/Comments: sob/copd exacerabtion Do you want consulting provider notified?: Yes, Notify in am Primary care physician: Jose M Robertson Hospital Course: 86-year-old female presented with family physician with complaints of chest pain and shortness of breath. The sound have EKG changes since the emergency room for evaluation. Patient was found have influenza A. Patient was evaluated by cardiology and cleared. Patient was evaluated by pulmonology and cleared for discharge. Assessment chest pain atypical influenza A history of asthma GERD hyperlipidemia hypertension memory impairment hypothyroidism Plan discharge home will continue to Tamiflu for three more days. Patient to follow up with family physician Plan - Discharge Summary New Discharge Prescriptions: Oseltamivir 6Mg/ml Oral Susp [Tamiflu] 30 mg PO Q12HR #6 tab Discharge Medication List Calcium Carbonate/Vitamin D3 [Calcium 600-Vit D3 400 Tablet] 1 tab PO BID [History] Docusate [Colace] 100 mg PO QAM PRN 02/14/14 [History] Fluticasone/Salmeterol [Advair 250-50 Diskus] 1 inhalation PO RT-BID 02/14/14 [ History] Ipratropium-Albuterol Nebulize [Duoneb 0.5 mg-3 mg/3 ml Soln] 3 ml IH RT-QID PRN 02/14/14 [History] Levothyroxine Sodium [Synthroid] 125 mcg PO DAILY 02/14/14 [History] Montelukast [Singulair] 10 mg PO HS 02/14/14 [History] Omeprazole [PriLOSEC] 20 mg PO AC-BRKFST 02/14/14 [History] Ramipril [Altace] 10 mg PO QAM 02/14/14 [History] Simvastatin [Zocor] 40 mg PO HS 02/14/14 [History] Solifenacin Succinate [Vesicare] 5 mg PO QAM 02/14/14 [History] Alendronate Sodium [Fosamax] 70 mg PO MO 08/04/14 [History] Acetaminophen [Tylenol] 325 - 650 mg PO Q4H PRN 08/05/14 [History] Albuterol Inhaler [Ventolin Hfa Inhaler] 1 - 2 puff INHALATION RT-Q6H PRN [History] Aricept 23mg 23 mg PO DAILY 05/15/16 [History] LORazepam [Ativan] 0.5 mg PO BID 05/15/16 [History] Vilazodone Hydrochloride [Viibryd] 20 mg PO DAILY 05/15/16 [History] amLODIPine BESYLATE [Norvasc] 5 mg PO HS 05/15/16 [History] Oseltamivir 6Mg/ml Oral Susp [Tamiflu] 30 mg PO Q12HR #6 tab 05/17/16 [Rx] Follow up Appointment(s)/Referral(s): Jose M Robertson MD [Primary Care Provider] - 1-2 days Activity/Diet/Wound Care/Special Instructions: [facility] [phone]
[2016-05-17 12:55] VITALS: BP 147/73; PULSE 61
--- NOTE | 2016-05-17 13:00 | P.PN ---
Subjective Principal diagnosis: Influenza A This is an 86-year-old female with history of hypertension, hyperlipidemia, hypothyroidism, COPD, prior smoking history, who presented to her primary care doctor's office with some symptoms of generalized weakness with associated sore throat and cough. Cardiology was initially consulted to see the patient because of atypical chest pain. Her troponins were negative 3, Echo cardiac gram with Doppler study was performed which revealed an ejection fraction of 55- 60%. Patient ruled in for influenza A. Blood pressure this morning 146/72 with a heart rate in the 60s. Objective - Vital Signs Vital signs: Vital Signs Temp 96.8 F L 05/17/16 08:00 Pulse 61 05/17/16 12:00 Resp 20 05/17/16 12:00 BP 147/73 05/17/16 12:00 Pulse Ox 96 05/17/16 12:00 Intake & Output 05/16/16 05/17/16 05/17/16 18:59 06:59 18:59 Intake Total 600 210 120 Output Total 700 Balance -100 210 120 Weight 82.7 kg 82.7 kg 82.7 kg Intake: IV 210 Sodium Chloride 0.9% 1, 210 000 ml @ 70 mls/hr IV . [id number] [facility] Rx#:[id number] Oral 600 120 Output: Urine 700 Other: Voiding Method Toilet Toilet Toilet # Voids 1 1 1 - Exam PHYSICAL EXAMINATION: HEENT: Head is atraumatic, normocephalic. Pupils equal, round. Neck is supple. There is no elevated jugular venous pressure. HEART EXAMINATION: Heart S1, S2 normal. No murmur or gallop heard. CHEST EXAMINATION: Lungs are clear to auscultation and precussion. No chest wall tenderness is noted on palpation or with deep breathing. ABDOMEN: Soft, nontender. Bowel sounds are heard. No organomegaly noted. EXTREMITIES: 2+ peripheral pulses with no evidence of peripheral edema and no calf tenderness noted. NEUROLOGIC patient is awake, alert and oriented -3. . - Labs CBC & Chem 7: 05/16/16 05:49 05/16/16 05:49 Labs: Abnormal Lab Results - Last 24 Hours (Table) 05/16/16 05/16/16 05/16/16 Range/Units 13:54 16:56 20:53 POC Glucose (mg/dL) 234 H 111 H 150 H (75-99) mg/dL 05/17/16 05/17/16 Range/Units 06:16 12:03 POC Glucose (mg/dL) 131 H 112 H (75-99) mg/dL Assessment and Plan (1) Weakness Status: Acute (2) Fatigue Status: Acute (3) Influenza A Status: Acute (4) COPD exacerbation Status: Acute (5) HTN (hypertension) Status: Acute (6) Hyperlipemia Status: Acute (7) Hypothyroid Status: Acute Plan: Cardiology's perspective, we will follow this patient with you now on an as- needed basis only, least on hesitate to call with any questions. DNP note has been reviewed, I agree with a documented findings and plan of care. Patient was seen and examined.
[2016-05-21] MEDS ORDERED: NON-FORMULARY DRUG (Alendronate Sodium [Fosamax] 70 MG) PO SCH (23:29)
== END 2016-05-17 13:59 | disposition home health service (06) | DRG 194 ==
LOC: EC 15:41 → 6SEL 20:49
PROVIDERS: ADMIT Family Medicine; ATTEND Family Medicine
DX: J10.1 Influenza due to other identified influenza virus with other respiratory manifestations (principal); J44.1 Chronic obstructive pulmonary disease with (acute) exacerbation; I10 Essential (primary) hypertension; E78.5 Hyperlipidemia, unspecified; J45.909 Unspecified asthma, uncomplicated; E03.9 Hypothyroidism, unspecified; K21.9 Gastro-esophageal reflux disease without esophagitis; F32.9 Major depressive disorder, single episode, unspecified; Z87.891 Personal history of nicotine dependence; Z98.42 Cataract extraction status, left eye; Z98.41 Cataract extraction status, right eye; Z79.51 Long term (current) use of inhaled steroids; Z79.899 Other long term (current) drug therapy
CPT/HCPCS: 36415; 71020; 80053; 80061; 81001; 82550; 82553; 83735; 83880; 84484; 85025; 85379; 85610; 85730; 87081; 87430; 87502; 93005; 93306; 94640; 96360; 96361; 99285

== ENCOUNTER 2016-07-03 18:03 | Inpatient (IN) | payer MEDICARE, BC ==
[2016-07-03] MEDS ORDERED: methylPREDNISolone SOD SUCCI 125 MG/2 ML VIAL IV STA (18:38)
[2016-07-03] MEDS ORDERED: IPRATROPIUM-ALBUTEROL 3 ML NEB INHALATION STA (18:38)
[2016-07-03] MEDS ORDERED: MAGNESIUM SULFATE-D5W PMX 1 GM in DEXTROSE/WATER 1 100ML.BAG IVPB STA (18:41)
[2016-07-03 18:55] LABS: Basophils % (A) 0 %; CH 32.6; CHCM 34.3; Eosinophils # (A) 0.1 k/uL (0-0.7); Eosinophils % (A) 1 %; HDW 2.49; HGB 12.3 gm/dL (11.4-16.0); Luc # (Auto) 0.19; Luc % (Auto) 3; Lymphocytes # (A) 1.8 k/uL (1.0-4.8); Lymphocytes % (A) 24 %; MCH 32.4 pg (25.0-35.0); MCV 95.3 fL (80.0-100.0); Mean Platelet Volume 7.4; Monocytes # (A) 0.6 k/uL (0-1.0); Monocytes % (A) 9 %; Neutrophils # (A) 4.7 k/uL (1.3-7.7); Neutrophils % (A) 63 %; RBC 3.78 m/uL (3.80-5.40); RDW 13.7 % (11.5-15.5); WBC 7.4 k/uL (3.8-10.6); WBC (Perox) 7.17
[2016-07-03 19:19] LABS: ALT 35 U/L (9-52); AST 29 U/L (14-36); Alkaline Phosphatase 58 U/L (38-126); Anion Gap 10 mmol/L; Blood Urea Nitrogen 21 mg/dL (7-17); Calcium 9.2 mg/dL (8.4-10.2); Carbon Dioxide 24 mmol/L (22-30); Chloride 101 mmol/L (98-107); Glucose 107 mg/dL (74-99); Non-African American GFR(MDRD) 59 (>60 ml/min/1.73 sqM); Sodium 135 mmol/L (137-145); Total Bilirubin 0.4 mg/dL (0.2-1.3); Total Protein 6.5 g/dL (6.3-8.2)
[2016-07-03 19:20] LABS: Creatine Kinase 140 U/L (30-135)
[2016-07-03 19:33] LABS: Creatine Kinase MB 0.9 ng/mL (0.0-2.4); Troponin I <0.012 ng/mL (0.000-0.034)
[2016-07-03 19:34] LABS: Prothrombin Time 10.1 sec (9.0-12.0)
[2016-07-03 19:42] LABS: Partial Thromboplastin Time 22.6 sec (22.0-30.0)
--- NOTE | 2016-07-03 19:54 | XR ---
EXAMINATION TYPE: XR chest 2V DATE OF EXAM: 07/03/2016 7:50 PM COMPARISON: Chest x-ray May 15, 2016. HISTORY: Chest pain and shortness of breath for 2 weeks. TECHNIQUE: Frontal and lateral views of the chest are obtained. FINDINGS: There is chronic parenchymal change with left basilar scarring and/or atelectasis redemons trated. No new focal airspace opacity, pleural effusion, or pneumothorax is seen The cardiac silhouet te size is mildly enlarged with atherosclerotic and slightly ectatic thoracic aorta. The osseous st ructures are demineralized. Degenerative change left shoulder is redemonstrated. IMPRESSION: Cardiomegaly and chronic changes without suspicious acute pulmonary process.
[2016-07-03] MEDS ORDERED: RX INFO: IV CONTRAST WAS GIVEN 1 EACH MISC MISCELLANE PRN (20:08)
--- NOTE | 2016-07-03 20:42 | ED ---
Chest Pain HPI - General Chief Complaint: Chest Pain Stated Complaint: Chest Pain Time Seen by Provider: 07/03/16 18:27 Source: patient Mode of arrival: EMS Limitations: no limitations - History of Present Illness Initial Comments: This 86-year-old white female presents with the complaint of some bilateral dull achy intermittent chest pain. It is been intermittent over the last 2 weeks. Associated with some shortness of breath. She's had occasional cough but no production. She states that it is worse today. She denies any fevers or chills. She does have a history of COPD as well as asthma. She tried her nebulizer treatments without any relief. She did present via EMS received an aspirin in route as well as a DuoNeb breathing treatment with limited relief. She denies any other complaints or modifying factors. She does have a history of heart disease but has a difficult time further describing this. She apparently has memory problems per her son. No other complaints or modifying factors. She apparently sees Dr. Weeks from pulmonlogy. Her son relates that her normal pulse ox is between 92-93% on room air and she does not use home oxygen. - Related Data Home Medications Medication Instructions Recorded Confirmed Docusate [Colace] 100 mg PO QAM 02/14/14 07/03/16 Fluticasone/Salmeterol [Advair 1 puff INHALATION RT-BID 02/14/14 07/03/16 250-50 Diskus] Ipratropium-Albuterol Nebulize 3 ml INHALATION RT-QID PRN 02/14/14 07/03/16 [Duoneb 0.5 mg-3 mg/3 ml Soln] Levothyroxine Sodium [Synthroid] 125 mcg PO DAILY 02/14/14 07/03/16 Montelukast [Singulair] 10 mg PO HS 02/14/14 07/03/16 Ramipril [Altace] 10 mg PO QAM 02/14/14 07/03/16 Simvastatin [Zocor] 40 mg PO HS 02/14/14 07/03/16 Solifenacin Succinate [Vesicare] 5 mg PO QAM 02/14/14 07/03/16 Alendronate Sodium [Fosamax] 70 mg PO MO 08/04/14 07/03/16 Acetaminophen [Tylenol] 325 - 650 mg PO Q4H PRN 08/05/14 07/03/16 Albuterol Inhaler [Ventolin Hfa 1 - 2 puff INHALATION RT-Q6H PRN 08/05/14 Inhaler] Aricept 23mg 23 mg PO DAILY 05/15/16 07/03/16 LORazepam [Ativan] 0.5 mg PO BID 05/15/16 07/03/16 Vilazodone Hydrochloride [Viibryd] 40 mg PO DAILY 05/15/16 07/03/16 amLODIPine BESYLATE [Norvasc] 5 mg PO HS 05/15/16 07/03/16 Calcium Carbonate [Tums Ultra 2,354 mg PO QAM 07/03/16 07/03/16 Strength] Omeprazole [PriLOSEC] 10 mg PO QAM 07/03/16 07/03/16 Simethicone [Gas-X] 125 mg PO PC-TID PRN 07/03/16 07/03/16 Allergies Allergy/AdvReac Type Severity Reaction Status Date / Time No Known Allergies Allergy Verified 07/03/16 19:23 Review of Systems ROS Statement: Those systems with pertinent positive or pertinent negative responses have been documented in the HPI. ROS Other: All systems not noted in ROS Statement are negative. Past Medical History Past Medical History: Asthma, Cancer, Diabetes Mellitus, GERD/Reflux, Hyperlipidemia, Hypertension, Memory Impairment, Thyroid Disorder Additional Past Medical History / Comment(s): hypoglycemia, shingles long time ago; skin ca History of Any Multi-Drug Resistant Organisms: None Reported Past Surgical History: No Surgical Hx Reported Additional Past Surgical History / Comment(s): rectocele repair, cataracts Past Anesthesia/Blood Transfusion Reactions: No Reported Reaction Past Psychological History: Depression Smoking Status: Former smoker Past Alcohol Use History: None Reported Additional Past Alcohol Use History / Comment(s): started smoking at age 19 smoked 1 ppd quit at age 47 Past Drug Use History: None Reported - Past Family History Father Family Medical History: Myocardial Infarction (ID) Mother History Unknown: Yes General Exam - General Exam Comments Initial Comments: GENERAL: The patient is well nourished and well hydrated. VITAL SIGNS: Heart rate, blood pressure, respiratory rate reviewed as recorded in nurse's notes. EYES: Pupils are round and reactive. Extraocular movements are intact. No conjunctival / lid redness or swelling. ENT: No external evidence of injury, swelling, or ecchymosis. Airway is patent. Throat is clear. NECK: Nontender. No swelling or evidence of injury. No subcutaneous emphysema. Trachea is midline. No thyroid mass. HEART: Regular rate and rhythm. Good peripheral pulses. LUNGS/CHEST: Breath sounds clear and equal bilaterally. No rales, rhonchi, or wheezes. No ecchymosis, subcutaneous emphysema, or tenderness. ABDOMEN: Abdomen soft without tenderness. No palpable masses or organomegaly. No peritoneal signs. No abdominal wall swelling or ecchymosis. EXTREMITIES: No extremity tenderness. Normal muscle tone and function. No thoracolumbar tenderness. NEUROLOGIC: Sensation is grossly intact. Cranial nerve exam reveals face is symmetrical, tongue is midline, speech is clear. SKIN: No abrasions or ecchymosis is noted. No induration or masses noted. PSYCHIATRIC: Alert and oriented. Appropriate behavior and judgment. Limitations: no limitations Course Vital Signs 07/03/16 07/03/16 07/03/16 18:05 19:05 19:11 Temperature 97.6 F Pulse Rate 61 30 L 41 L Respiratory 18 16 Rate Blood Pressure 147/58 O2 Sat by Pulse 93 L Oximetry Chest Pain MDM - MDM The patient was seen and examined. All diagnostics were reviewed. The EKG was done and shows a normal sinus rhythm at a rate of 68. There is nonspecific ST- T wave changes noted primarily in the anteroseptal leads. The SC interval is 190, QRS duration is 92, and the QTc interval is 463. The laboratory is reviewed and does show elevation of the d-dimer. The patient is other laboratory is fairly unremarkable. The chest x-ray does not show any acute abnormalities. His felt as though she benefit from a computed tomography scan of the thorax revealed possibility of pulmonary embolism. She did receive a DuoNeb breathing treatment as well as some Nitropaste and is feeling improved on recheck. She also had an elevation of her d-dimer on the laboratory. The patient then went for a CTA of the chest and this does not show any evidence of pulmonary embolism. The possibility of a consolidation is noted consistent with the possibility of pneumonia. It is felt as though she would require antibiotic treatment. The son relates that she was just in the hospital approximately one month ago so this would be a hospital-acquired pneumonia. She just is started on Levaquin, Zosyn, and vancomycin. Case is discussed with Dr. Robertson and he is agreeable with admission. Disposition Clinical Impression: Chest pain, COPD exacerbation, Dyspnea, Hypoxia, Elevated d-dimer, Hospital- acquired pneumonia Disposition: ADMITTED IP TO THIS HOSP Condition: Fair Time of Disposition: 21:27 Decision Date: 07/03/16 Decision Time: 21:27
--- NOTE | 2016-07-03 20:58 | CT ---
EXAMINATION TYPE: CT angio chest DATE OF EXAM: 07/03/2016 8:47 PM COMPARISON: NONE HISTORY: Difficulty breathing. CT DLP: 405.00 mGycm. Automated Exposure Control for Dose Reduction was Utilized. CONTRAST: CTA scan of the thorax is performed with IV Contrast, patient injected with 63 mL of Visipaque 320, p ulmonary embolism protocol. MIP Images are created on CT scanner and reviewed. FINDINGS: LUNGS: There is slightly elevated left hemidiaphragm. There is linear scarring and/or atelectasis in both lower lungs most prominent in the lower lobes. Mild apical scarring is seen bilaterally. There i s slightly more prominent nodular consolidation or atelectasis posterior aspect right upper lobe near axial image 44. No pleural effusion or pneumothorax is seen bilaterally. MEDIASTINUM: There is satisfactory enhancement of the pulmonary artery and its branches, there is no CT evidence for pulmonary embolism. There are no greater than 1 cm hilar or mediastinal lymph nodes. No significant pericardial effusion is seen. Mild cardiomegaly is present. Coronary artery calcifi cation is seen which is noted marker for coronary artery disease. Ascending aorta measures up to 3.8 cm in diameter. Medial course to common carotid arteries retrotracheal region bilaterally is seen on most superior axial images. OTHER: Small size hiatal hernia is noted. Hypodense lesions right hepatic lobe inferiorly likely refl ect simple cysts. Osseous structures are demineralized. There is slight S-shaped scoliosis. There is disc space narrowing at several levels in the thoracic spine. There is disc space narrowing with scle rosis and spurring at L1-L2 level. Some fat replaced atrophy of pancreas is present. IMPRESSION: 1. No CT evidence for pulmonary embolism. 2. Mild cardiomegaly with scattered areas of scarring and/or atelectasis present bilaterally, slightl y more prominent atelectasis and/or consolidation posterior right upper lobe is noted.
[2016-07-03] MEDS ORDERED: IV VANCOMYCIN PER PHARMACY 1 EACH MISC MISCELLANE PRN (21:18)
[2016-07-03] MEDS ORDERED: VANCOMYCIN 1,250 MG in SODIUM CHLORIDE 0.9% 250 ML IVPB STA (21:18)
[2016-07-03] MEDS ORDERED: PIPERACILLIN-TAZOBACTAM 3.375 GM in DEXTROSE/WATER 1 50ML.BAG IVPB STA (21:18)
[2016-07-03] MEDS ORDERED: LEVOFLOXACIN 750MG-D5W PMX 750 MG in DEXTROSE/WATER 1 150ML.BAG IVPB STA (21:18)
[2016-07-03] MEDS ORDERED: ACETAMINOPHEN TAB 325 MG TAB PO PRN (21:28)
[2016-07-03] MEDS ORDERED: NITROGLYCERIN SL TABS 0.4 MG TAB SUBLINGUAL PRN (21:28)
[2016-07-03] MEDS ORDERED: SIMETHICONE 80 MG CHEWABLE PO PRN (21:32)
[2016-07-04] MEDS: IPRATROPIUM-ALBUTEROL 3 ML NEB INHALATION SCH ×6 (00:02→19:58)
[2016-07-04 00:44] LABS: Creatine Kinase 125 U/L (30-135)
[2016-07-04 00:56] LABS: Troponin I <0.012 ng/mL (0.000-0.034)
[2016-07-04] MEDS ORDERED: LORazepam 0.5 MG TAB PO STA (01:01)
[2016-07-04 01:49] VITALS: BMI 27.4
[2016-07-04] MEDS: methylPREDNISolone SOD SUCCI 125 MG/2 ML VIAL IV SCH ×5 (01:53→23:39)
[2016-07-04] MEDS: NITROGLYCERIN OINT 1 INCH/GM PACKET TOPICAL SCH ×5 (01:59→23:39)
[2016-07-04 06:18] LABS: Anion Gap 11 mmol/L; Blood Urea Nitrogen 20 mg/dL (7-17); Carbon Dioxide 22 mmol/L (22-30); Chloride 103 mmol/L (98-107); Cholesterol 151 mg/dL (<200); Glucose 183 mg/dL (74-99); HDL Cholesterol 83 mg/dL (40-60); Non-African American GFR(MDRD) >60 (>60 ml/min/1.73 sqM); Potassium 4.1 mmol/L (3.5-5.1); Sodium 136 mmol/L (137-145); Triglycerides 23 mg/dL (<150)
[2016-07-04 06:23] LABS: Creatine Kinase 136 U/L (30-135)
[2016-07-04 06:36] LABS: Creatine Kinase MB 1.2 ng/mL (0.0-2.4); Troponin I <0.012 ng/mL (0.000-0.034)
[2016-07-04] MEDS: SYMBICORT 80-4.5 MCG INHALER INHALATION SCH ×2 (06:58→19:58)
[2016-07-04] MEDS: LEVOTHYROXINE 125 MCG TAB PO SCH (08:01)
[2016-07-04] MEDS: PANTOPRAZOLE 40 MG TABLET PO SCH (08:01)
[2016-07-04] MEDS: ASPIRIN 325 MG TAB PO SCH (08:02)
[2016-07-04] MEDS: DOCUSATE 100 MG CAP PO SCH (08:02)
[2016-07-04] MEDS: ENOXAPARIN 40 MG/0.4 ML SYRINGE SQ SCH (08:02)
[2016-07-04] MEDS: LISINOPRIL 20 MG TAB PO SCH (08:02)
[2016-07-04] MEDS: LORazepam 0.5 MG TAB PO SCH ×2 (08:02→21:44)
[2016-07-04] MEDS: DONEPEZIL 10 MG TAB PO SCH (08:02)
[2016-07-04] MEDS: OXYBUTYNIN XL 5 MG TAB.ER.24 PO SCH (08:03)
[2016-07-04] MEDS ORDERED: VILAZODONE HYDROCHLORIDE 40 MG PO SCH (09:00)
[2016-07-04] MEDS ORDERED: IV VANCOMYCIN PER PHARMACY 1 EACH MISC MISCELLANE PRN (11:13)
[2016-07-04] MEDS ORDERED: VANCOMYCIN 1,250 MG in SODIUM CHLORIDE 0.9% 250 ML IVPB SCH ×2 (12:00→21:00)
[2016-07-04] MEDS: CALCIUM CARBONATE 500 MG CHEWABLE PO SCH (12:09)
[2016-07-04 12:21] LABS: Hemoglobin A1C 6.3 % (4.2-6.1)
[2016-07-04 12:32] LABS: Glucose,Whole Blood 220 mg/dL (75-99)
[2016-07-04] MEDS: INSULIN LISPRO (humaLOG) 300 UNIT/3 ML VIAL SQ SCH ×3 (13:12→21:45)
--- NOTE | 2016-07-04 14:27 | P.HPIM ---
History of Present Illness 86-year-old female was brought to the emergency room after complaints of just not feeling well. Achy chest pain associated with shortness of breath. Patient has seen Dr. Micky fox for all pulmonary problems Review of Systems Constitutional: Reports fatigue Cardiovascular: Reports dyspnea on exertion Past Medical History Past Medical History: Asthma, Cancer, Diabetes Mellitus, GERD/Reflux, Hyperlipidemia, Hypertension, Memory Impairment, Thyroid Disorder Additional Past Medical History / Comment(s): hypoglycemia, shingles long time ago; skin ca History of Any Multi-Drug Resistant Organisms: None Reported Past Surgical History: No Surgical Hx Reported Additional Past Surgical History / Comment(s): rectocele repair, cataracts Past Anesthesia/Blood Transfusion Reactions: No Reported Reaction Past Psychological History: Depression Smoking Status: Former smoker Past Alcohol Use History: None Reported Additional Past Alcohol Use History / Comment(s): started smoking at age 19 smoked 1 ppd quit at age 47 Past Drug Use History: None Reported - Past Family History Father Family Medical History: Myocardial Infarction (ME) Mother History Unknown: Yes Medications and Allergies Home Medications Medication Instructions Recorded Confirmed Type Docusate [Colace] 100 mg PO QAM 02/14/14 07/03/16 History Fluticasone/Salmeterol [Advair 1 puff INHALATION RT-BID 02/14/14 07/03/16 History 250-50 Diskus] Ipratropium-Albuterol Nebulize 3 ml INHALATION RT-QID PRN 02/14/14 07/03/16 History [Duoneb 0.5 mg-3 mg/3 ml Soln] Levothyroxine Sodium [Synthroid] 125 mcg PO DAILY 02/14/14 07/03/16 History Montelukast [Singulair] 10 mg PO HS 02/14/14 07/03/16 History Ramipril [Altace] 10 mg PO QAM 02/14/14 07/03/16 History Simvastatin [Zocor] 40 mg PO HS 02/14/14 07/03/16 History Solifenacin Succinate [Vesicare] 5 mg PO QAM 02/14/14 07/03/16 History Alendronate Sodium [Fosamax] 70 mg PO MO 08/04/14 07/03/16 History Acetaminophen [Tylenol] 325 - 650 mg PO Q4H PRN 08/05/14 07/03/16 History Albuterol Inhaler [Ventolin Hfa 1 - 2 puff INHALATION RT-Q6H PRN 08/05/14 History Inhaler] Aricept 23mg 23 mg PO DAILY 05/15/16 07/03/16 History LORazepam [Ativan] 0.5 mg PO BID 05/15/16 07/03/16 History Vilazodone Hydrochloride [Viibryd] 40 mg PO DAILY 05/15/16 07/03/16 History amLODIPine BESYLATE [Norvasc] 5 mg PO HS 05/15/16 07/03/16 History Calcium Carbonate [Tums Ultra 2,354 mg PO QAM 07/03/16 07/03/16 History Strength] Omeprazole [PriLOSEC] 10 mg PO QAM 07/03/16 07/03/16 History Simethicone [Gas-X] 125 mg PO PC-TID PRN 07/03/16 07/03/16 History Allergies Allergy/AdvReac Type Severity Reaction Status Date / Time No Known Allergies Allergy Verified 07/03/16 19:23 Physical Exam Vitals: Vital Signs Temp Pulse Pulse Pulse Resp BP BP 07/04/16 11:18 80 07/04/16 11:07 76 07/04/16 09:33 96.2 F L 79 18 128/68 07/04/16 08:18 97.8 F 91 18 120/57 07/04/16 07:28 90 17 128/65 07/04/16 07:15 84 07/04/16 06:58 82 07/04/16 06:30 84 18 143/65 07/04/16 05:30 64 18 139/63 07/04/16 04:37 68 18 155/66 07/04/16 04:17 68 07/04/16 04:06 70 07/04/16 03:46 98.5 F 79 18 138/67 07/04/16 02:01 97.7 F 94 18 144/64 07/04/16 01:40 72 18 134/61 07/04/16 00:11 64 07/04/16 00:04 68 07/03/16 23:30 61 20 134/61 07/03/16 22:30 53 L 20 135/56 07/03/16 21:28 48 L 22 145/67 07/03/16 21:00 41 L 20 128/59 07/03/16 20:00 51 L 20 124/57 07/03/16 19:11 41 L 07/03/16 19:05 30 L 16 07/03/16 19:00 50 L 20 136/60 07/03/16 18:05 97.6 F 61 18 147/58 Pulse Ox 07/04/16 11:18 07/04/16 11:07 07/04/16 09:33 94 L 07/04/16 08:18 93 L 07/04/16 07:28 92 L 07/04/16 07:15 07/04/16 06:58 07/04/16 06:30 93 L 07/04/16 05:30 93 L 07/04/16 04:37 93 L 07/04/16 04:17 07/04/16 04:06 07/04/16 03:46 94 L 07/04/16 02:01 94 L 07/04/16 01:40 95 07/04/16 00:11 07/04/16 00:04 07/03/16 23:30 95 07/03/16 22:30 95 07/03/16 21:28 94 L 07/03/16 21:00 95 07/03/16 20:00 94 L 07/03/16 19:11 07/03/16 19:05 07/03/16 19:00 93 L 07/03/16 18:05 93 L Intake and Output 07/03/16 07/04/16 07/04/16 22:59 06:59 14:59 Other: Weight 74.843 kg 83.3 kg Patient Weight 07/05/16 06:59 Weight 83.3 kg - Constitutional General appearance: obese - EENT Eyes: PERRLA Ears: bilateral: normal - Neck Neck: normal ROM - Respiratory Respiratory: bilateral: diminished - Cardiovascular Rhythm: regular - Gastrointestinal General gastrointestinal: soft - Integumentary Integumentary: normal - Neurologic Neurologic: CNII-XII intact - Psychiatric Psychiatric: appropriate affect Results CBC & Chem 7: 07/03/16 18:20 07/04/16 05:49 Labs: Abnormal Lab Results - Last 24 Hours (Table) 07/03/16 07/03/16 07/03/16 Range/Units 18:20 18:20 18:20 RBC 3.78 L (3.80-5.40) m/uL D-Dimer (<0.60) mg/L FEU Sodium 135 L (137-145) mmol/L BUN 21 H (7-17) mg/dL Glucose 107 H (74-99) mg/dL POC Glucose (mg/dL) (75-99) mg/dL Hemoglobin A1c (4.2-6.1) % Total Creatine Kinase 140 H (30-135) U/L HDL Cholesterol (40-60) mg/dL 07/03/16 07/04/16 07/04/16 Range/Units 18:20 05:49 05:49 RBC (3.80-5.40) m/uL D-Dimer 1.84 H (<0.60) mg/L FEU Sodium 136 L (137-145) mmol/L BUN 20 H (7-17) mg/dL Glucose 183 H (74-99) mg/dL POC Glucose (mg/dL) (75-99) mg/dL Hemoglobin A1c (4.2-6.1) % Total Creatine Kinase 136 H (30-135) U/L HDL Cholesterol 83 H (40-60) mg/dL 07/04/16 07/04/16 Range/Units 05:49 12:15 RBC (3.80-5.40) m/uL D-Dimer (<0.60) mg/L FEU Sodium (137-145) mmol/L BUN (7-17) mg/dL Glucose (74-99) mg/dL POC Glucose (mg/dL) 220 H (75-99) mg/dL Hemoglobin A1c 6.3 H (4.2-6.1) % Total Creatine Kinase (30-135) U/L HDL Cholesterol (40-60) mg/dL Chest x-ray: report reviewed CT scan - chest: report reviewed Thrombosis Risk Factor Assmnt - Choose All That Apply Any of the Below Risk Factors Present?: Yes Each Factor Represents 1 point: Serious lung disease incl. pneumonia (< 1month) Other Risk Factors: Yes Each Risk Factor Represents 3 Points: Age 75 years or older Thrombosis Risk Factor Assessment Total Risk Factor Score: 4 Thrombosis Risk Factor Assessment Level: Moderate Risk Assessment and Plan Plan: Assessment COPD exacerbation with hypoxia dyspnea Elevated d-dimer Hospital-acquired pneumonia Asthma Diabetes type 2 GERD Hyperlipidemia Hypertension Memory impairment Hypothyroidism Plan Consultation with Dr. Weeks are regarding respiratory status
--- NOTE | 2016-07-04 16:46 | P.CNPUL ---
History of Present Illness Consult date: 07/04/16 Requesting physician: Jose M Robertson Reason for consult: dyspnea Chief complaint: Fatigue, weakness, shortness of breath History of present illness: This is a very pleasant 86-year-old female patient who follows with Dr. Jose M Robertson is her primary care physician. She has a history of hyperlipidemia, hypertension, hypothyroidism, gastroesophageal reflux disease. She also has a history of chronic obstructive pulmonary disease from a previous smoking history. She follows with Dr. Weeks in our office for the same. She is not oxygen dependent. She's been maintained on Advair and albuterol. She resides at the [facility]. Yesterday morning she woke up feeling "horrible" with symptoms of fatigue and weakness. She did have some shortness of breath with a dry nonproductive cough. She also had some dull achy intermittent chest pain and was brought here by EMS for the same. A d-dimer was 1.84. A CT angiogram ruled out pulmonary embolism. There was some mild cardiomegaly with scattered areas of scarring and/or atelectasis bilaterally. Wrist x-ray showed chronic changes with no acute pulmonary process. Her troponins were negative. No leukocytosis. She's been afebrile. She is seen today in consultation on the regular medical floor. She is awake and alert in no acute distress. She is a 29 feeling quite a bit better today as compared to yesterday. Not quite as weak. She continues to be short of breath with minimal exertion and she continues with a dry nonproductive cough. No chills or night sweats. Review of Systems 14 point review of system was conducted. All negative other than as mentioned in HPI. Past Medical History Past Medical History: Asthma, Cancer, Diabetes Mellitus, GERD/Reflux, Hyperlipidemia, Hypertension, Memory Impairment, Thyroid Disorder Additional Past Medical History / Comment(s): hypoglycemia, shingles long time ago; skin ca History of Any Multi-Drug Resistant Organisms: None Reported Past Surgical History: No Surgical Hx Reported Additional Past Surgical History / Comment(s): rectocele repair, cataracts Past Anesthesia/Blood Transfusion Reactions: No Reported Reaction Past Psychological History: Depression Smoking Status: Former smoker Past Alcohol Use History: None Reported Additional Past Alcohol Use History / Comment(s): started smoking at age 19 smoked 1 ppd quit at age 47 Past Drug Use History: None Reported - Past Family History Father Family Medical History: Myocardial Infarction ([place]) Mother History Unknown: Yes Medications and Allergies Home Medications Medication Instructions Recorded Confirmed Type Docusate [Colace] 100 mg PO QAM 02/14/14 07/03/16 History Fluticasone/Salmeterol [Advair 1 puff INHALATION RT-BID 02/14/14 07/03/16 History 250-50 Diskus] Ipratropium-Albuterol Nebulize 3 ml INHALATION RT-QID PRN 02/14/14 07/03/16 History [Duoneb 0.5 mg-3 mg/3 ml Soln] Levothyroxine Sodium [Synthroid] 125 mcg PO DAILY 02/14/14 07/03/16 History Montelukast [Singulair] 10 mg PO HS 02/14/14 07/03/16 History Ramipril [Altace] 10 mg PO QAM 02/14/14 07/03/16 History Simvastatin [Zocor] 40 mg PO HS 02/14/14 07/03/16 History Solifenacin Succinate [Vesicare] 5 mg PO QAM 02/14/14 07/03/16 History Alendronate Sodium [Fosamax] 70 mg PO MO 08/04/14 07/03/16 History Acetaminophen [Tylenol] 325 - 650 mg PO Q4H PRN 08/05/14 07/03/16 History Albuterol Inhaler [Ventolin Hfa 1 - 2 puff INHALATION RT-Q6H PRN 08/05/14 History Inhaler] Aricept 23mg 23 mg PO DAILY 05/15/16 07/03/16 History LORazepam [Ativan] 0.5 mg PO BID 05/15/16 07/03/16 History Vilazodone Hydrochloride [Viibryd] 40 mg PO DAILY 05/15/16 07/03/16 History amLODIPine BESYLATE [Norvasc] 5 mg PO HS 05/15/16 07/03/16 History Calcium Carbonate [Tums Ultra 2,354 mg PO QAM 07/03/16 07/03/16 History Strength] Omeprazole [PriLOSEC] 10 mg PO QAM 07/03/16 07/03/16 History Simethicone [Gas-X] 125 mg PO PC-TID PRN 07/03/16 07/03/16 History Allergies Allergy/AdvReac Type Severity Reaction Status Date / Time No Known Allergies Allergy Verified 07/03/16 19:23 Physical Exam Vitals: Vital Signs Temp Pulse Pulse Pulse Resp BP BP 07/04/16 16:35 62 07/04/16 16:21 62 07/04/16 11:18 80 07/04/16 11:07 76 07/04/16 09:33 96.2 F L 79 18 128/68 07/04/16 08:18 97.8 F 91 18 120/57 07/04/16 07:28 90 17 128/65 07/04/16 07:15 84 07/04/16 06:58 82 07/04/16 06:30 84 18 143/65 07/04/16 05:30 64 18 139/63 07/04/16 04:37 68 18 155/66 07/04/16 04:17 68 07/04/16 04:06 70 07/04/16 03:46 98.5 F 79 18 138/67 07/04/16 02:01 97.7 F 94 18 144/64 07/04/16 01:40 72 18 134/61 07/04/16 00:11 64 07/04/16 00:04 68 07/03/16 23:30 61 20 134/61 07/03/16 22:30 53 L 20 135/56 07/03/16 21:28 48 L 22 145/67 07/03/16 21:00 41 L 20 128/59 07/03/16 20:00 51 L 20 124/57 07/03/16 19:11 41 L 07/03/16 19:05 30 L 16 07/03/16 19:00 50 L 20 136/60 07/03/16 18:05 97.6 F 61 18 147/58 Pulse Ox 07/04/16 16:35 07/04/16 16:21 97 07/04/16 11:18 07/04/16 11:07 07/04/16 09:33 94 L 07/04/16 08:18 93 L 07/04/16 07:28 92 L 07/04/16 07:15 07/04/16 06:58 07/04/16 06:30 93 L 07/04/16 05:30 93 L 07/04/16 04:37 93 L 07/04/16 04:17 07/04/16 04:06 07/04/16 03:46 94 L 07/04/16 02:01 94 L 07/04/16 01:40 95 07/04/16 00:11 07/04/16 00:04 07/03/16 23:30 95 07/03/16 22:30 95 07/03/16 21:28 94 L 07/03/16 21:00 95 07/03/16 20:00 94 L 07/03/16 19:11 07/03/16 19:05 07/03/16 19:00 93 L 07/03/16 18:05 93 L Intake and Output 07/04/16 07/04/16 07/04/16 06:59 14:59 22:59 Intake Total 250 Balance 250 Intake: IV 250 Vancomycin 1,250 mg In 250 Sodium Chloride 0.9% 250 ml @ 125 mls/hr IVPB Q24H [facility] Rx#:[id number] Other: Weight 83.3 kg Patient Weight 07/05/16 06:59 Weight 83.3 kg GENERAL EXAM: Alert, active, comfortable in no apparent distress. HEAD: Normocephalic. EYES: Normal reaction of pupils, equal size. NOSE: Clear with pink turbinates. THROAT: No erythema or exudates. NECK: No masses, no JVD. CHEST: No chest wall deformity. LUNGS: Equal air entry with no crackles, wheeze, rhonchi or dullness. CVS: S1 and S2 normal with no audible mumurs, regular rhythm. ABDOMEN: No hepatosplenomegaly, normal bowel sounds, no guarding or rigidity. SPINE: No scoliosis or deformity SKIN: No rashes CENTRAL NERVOUS SYSTEM: No focal deficits, tone is normal in all 4 extremities. Extremities: There is no significant peripheral edema. No clubbing, no cyanosis. Peripheral pulses are intact. Results - Laboratory Findings CBC and BMP: 07/03/16 18:20 07/04/16 05:49 PT/INR, D-dimer PT 10.1 sec (9.0-12.0) 07/03/16 18:20 INR 1.0 (<1.1) 07/03/16 18:20 D-Dimer 1.84 mg/L FEU (<0.60) H 07/03/16 18:20 Abnormal lab findings: Abnormal Labs 07/03/16 07/03/16 07/03/16 18:20 18:20 18:20 RBC 3.78 L D-Dimer Sodium 135 L BUN 21 H Glucose 107 H POC Glucose (mg/dL) Hemoglobin A1c Total Creatine Kinase 140 H HDL Cholesterol 07/03/16 07/04/16 07/04/16 18:20 05:49 05:49 RBC D-Dimer 1.84 H Sodium 136 L BUN 20 H Glucose 183 H POC Glucose (mg/dL) Hemoglobin A1c Total Creatine Kinase 136 H HDL Cholesterol 83 H 07/04/16 07/04/16 05:49 12:15 RBC D-Dimer Sodium BUN Glucose POC Glucose (mg/dL) 220 H Hemoglobin A1c 6.3 H Total Creatine Kinase HDL Cholesterol - Diagnostic Findings Chest x-ray: image reviewed Assessment and Plan Plan: Impression: #1 Atypical chest pain, acute coronary syndrome ruled out. #2 Acute exacerbation of chronic obstructive pulmonary disease with no clear evidence of pneumonia. #3 Diabetes mellitus, type II. #4 Hyperlipidemia. #5 Hypertension. #6 Gastroesophageal reflux disease. Plan: The patient was seen and evaluated by Dr. Sams. Her chest x-ray, computed tomography scan and labs were reviewed. The patient's symptoms are quite vague as she is somewhat of a poor historian. We'll go ahead and treat her for COPD exacerbation. She is on bronchodilators, Symbicort, Solu-Medrol. Continue her Singulair. She remains on Lovenox for DVT prophylaxis. We will increase her activity as tolerated. Plan for probable discharge in the a.m. Time with Patient: Greater than 30
[2016-07-04 17:42] LABS: Glucose,Whole Blood 153 mg/dL (75-99)
[2016-07-04] MEDS ORDERED: IPRATROPIUM-ALBUTEROL 3 ML NEB INHALATION PRN (20:08)
[2016-07-04] MEDS ORDERED: MONTELUKAST 10 MG TAB PO SCH (21:00)
[2016-07-04] MEDS ORDERED: ATORVASTATIN 20 MG TAB PO SCH (21:00)
[2016-07-04] MEDS ORDERED: amLODIPine 5 MG TAB PO SCH (21:00)
[2016-07-04 21:31] LABS: Glucose,Whole Blood 177 mg/dL (75-99)
[2016-07-05] MEDS: methylPREDNISolone SOD SUCCI 125 MG/2 ML VIAL IV SCH ×2 (05:27→12:21)
[2016-07-05] MEDS: NITROGLYCERIN OINT 1 INCH/GM PACKET TOPICAL SCH ×2 (05:27→12:20)
[2016-07-05] MEDS: LEVOTHYROXINE 125 MCG TAB PO SCH (05:29)
[2016-07-05 07:54] LABS: Glucose,Whole Blood 141 mg/dL (75-99)
[2016-07-05] MEDS: LORazepam 0.5 MG TAB PO SCH (08:01)
[2016-07-05] MEDS: LISINOPRIL 20 MG TAB PO SCH (08:01)
[2016-07-05] MEDS: ASPIRIN 325 MG TAB PO SCH (08:02)
[2016-07-05] MEDS: ENOXAPARIN 40 MG/0.4 ML SYRINGE SQ SCH (08:02)
[2016-07-05] MEDS: DOCUSATE 100 MG CAP PO SCH (08:02)
[2016-07-05] MEDS: PANTOPRAZOLE 40 MG TABLET PO SCH (08:03)
[2016-07-05] MEDS: DONEPEZIL 10 MG TAB PO SCH (08:03)
[2016-07-05] MEDS: OXYBUTYNIN XL 5 MG TAB.ER.24 PO SCH (08:06)
[2016-07-05] MEDS: INSULIN LISPRO (humaLOG) 300 UNIT/3 ML VIAL SQ SCH ×2 (08:06→12:20)
[2016-07-05] MEDS: SYMBICORT 80-4.5 MCG INHALER INHALATION SCH ×2 (08:42→09:00)
[2016-07-05] MEDS: IPRATROPIUM-ALBUTEROL 3 ML NEB INHALATION SCH ×2 (08:42→11:36)
[2016-07-05 09:04] VITALS: BP 137/77; RESP 18; TEMP 97.2
[2016-07-05 11:13] LABS: Anion Gap 10 mmol/L; Blood Urea Nitrogen 24 mg/dL (7-17); Calcium 9.1 mg/dL (8.4-10.2); Carbon Dioxide 22 mmol/L (22-30); Chloride 102 mmol/L (98-107); Glucose 127 mg/dL (74-99); Non-African American GFR(MDRD) >60 (>60 ml/min/1.73 sqM); Potassium 4.1 mmol/L (3.5-5.1); Sodium 134 mmol/L (137-145)
[2016-07-05 11:38] VITALS: PULSE 68
[2016-07-05 11:56] LABS: Glucose,Whole Blood 129 mg/dL (75-99)
--- NOTE | 2016-07-05 12:32 | P.DS ---
Providers Date of admission: 07/03/16 21:28 Expected date of discharge: 07/05/16 Attending physician: Jose M Robertson Consults: 07/03/16 21:28 Consult Physician Urgent Consulting Provider: Eloina Weeks Reason/Comments: sob, pneumonia, hypoxia Do you want consulting provider notified?: Yes Primary care physician: Jose M Robertson Hospital Course: 81-year-old female was brought to the emergency room with complaints of shortness of breath vague symptoms of achy feeling. Patient has a history of COPD and asthma patient was evaluated by Dr. Micky fox and stabilized patient to be discharged home Assessment COPD exacerbation dyspnea hypoxia Elevated d-dimer negative for PE History of asthma Diabetes type 2 GERD Hyperlipidemia Hypertension Memory impairment Hypothyroidism Hospital-acquired pneumonia Plan We'll be discharged home on Levaquin 250 Follow-up with family physician and director of student services Patient Condition at Discharge: Fair Plan - Discharge Summary New Discharge Prescriptions: Levofloxacin [Levaquin] 250 mg PO DAILY #10 tab Discharge Medication List Docusate [Colace] 100 mg PO QAM 02/14/14 [History] Fluticasone/Salmeterol [Advair 250-50 Diskus] 1 puff INHALATION RT-BID 02/14/14 [History] Ipratropium-Albuterol Nebulize [Duoneb 0.5 mg-3 mg/3 ml Soln] 3 ml INHALATION RT -QID PRN 02/14/14 [History] Levothyroxine Sodium [Synthroid] 125 mcg PO DAILY 02/14/14 [History] Montelukast [Singulair] 10 mg PO HS 02/14/14 [History] Ramipril [Altace] 10 mg PO QAM 02/14/14 [History] Simvastatin [Zocor] 40 mg PO HS 02/14/14 [History] Solifenacin Succinate [Vesicare] 5 mg PO QAM 02/14/14 [History] Alendronate Sodium [Fosamax] 70 mg PO MO 08/04/14 [History] Acetaminophen [Tylenol] 325 - 650 mg PO Q4H PRN 08/05/14 [History] Albuterol Inhaler [Ventolin Hfa Inhaler] 1 - 2 puff INHALATION RT-Q6H PRN [History] Aricept 23mg 23 mg PO DAILY 05/15/16 [History] LORazepam [Ativan] 0.5 mg PO BID 05/15/16 [History] Vilazodone Hydrochloride [Viibryd] 40 mg PO DAILY 05/15/16 [History] amLODIPine BESYLATE [Norvasc] 5 mg PO HS 05/15/16 [History] Calcium Carbonate [Tums Ultra Strength] 2,354 mg PO QAM 07/03/16 [History] Omeprazole [PriLOSEC] 10 mg PO QAM 07/03/16 [History] Simethicone [Gas-X] 125 mg PO PC-TID PRN 07/03/16 [History] Levofloxacin [Levaquin] 250 mg PO DAILY #10 tab 07/05/16 [Rx]
[2016-07-05] MEDS: CALCIUM CARBONATE 500 MG CHEWABLE PO SCH (13:03)
--- NOTE | 2016-07-05 15:39 | P.PN ---
Subjective This is a very pleasant 86-year-old female patient who follows with Dr. Jose M Robertson is her primary care physician. She has a history of hyperlipidemia, hypertension, hypothyroidism, gastroesophageal reflux disease. She also has a history of chronic obstructive pulmonary disease from a previous smoking history. She follows with Dr. Weeks in our office for the same. She is not oxygen dependent. She's been maintained on Advair and albuterol. She resides at the [facility]. Yesterday morning she woke up feeling "horrible" with symptoms of fatigue and weakness. She did have some shortness of breath with a dry nonproductive cough. She also had some dull achy intermittent chest pain and was brought here by EMS for the same. A d-dimer was 1.84. A CT angiogram ruled out pulmonary embolism. There was some mild cardiomegaly with scattered areas of scarring and/or atelectasis bilaterally. Wrist x-ray showed chronic changes with no acute pulmonary process. Her troponins were negative. No leukocytosis. She's been afebrile. She is seen today in consultation on the regular medical floor. She is awake and alert in no acute distress. She is a 29 feeling quite a bit better today as compared to yesterday. Not quite as weak. She continues to be short of breath with minimal exertion and she continues with a dry nonproductive cough. No chills or night sweats. The patient is seen again today 07/05/2016 in follow-up on the regular medical floor. She is awake and alert in no acute distress. She denies any shortness of breath, cough or congestion. She denies any worsening weakness or fatigue. She is quite anxious to go home. Objective - Vital Signs Vital signs: Vital Signs Temp 97.2 F L 07/05/16 09:03 Pulse 68 07/05/16 11:43 Resp 18 07/05/16 09:03 BP 137/77 07/05/16 09:03 Pulse Ox 95 07/05/16 09:03 Intake & Output 07/04/16 07/05/16 07/05/16 18:59 06:59 18:59 Intake Total 250 Balance 250 Weight 83.3 kg 83.3 kg Intake: IV 250 Vancomycin 1,250 mg In 250 Sodium Chloride 0.9% 250 ml @ 125 mls/hr IVPB Q24H [facility] Rx#:[id number] Other: Voiding Method Toilet # Voids 2 3 - Exam GENERAL EXAM: Alert, active, comfortable in no apparent distress. HEAD: Normocephalic. EYES: Normal reaction of pupils, equal size. NOSE: Clear with pink turbinates. THROAT: No erythema or exudates. NECK: No masses, no JVD. CHEST: No chest wall deformity. LUNGS: Equal air entry with no crackles, wheeze, rhonchi or dullness. CVS: S1 and S2 normal with no audible mumurs, regular rhythm. ABDOMEN: No hepatosplenomegaly, normal bowel sounds, no guarding or rigidity. SPINE: No scoliosis or deformity SKIN: No rashes CENTRAL NERVOUS SYSTEM: No focal deficits, tone is normal in all 4 extremities. Extremities: There is no significant peripheral edema. No clubbing, no cyanosis. Peripheral pulses are intact. - Labs CBC & Chem 7: 07/03/16 18:20 07/05/16 10:41 Labs: Abnormal Lab Results - Last 24 Hours (Table) 07/04/16 07/04/16 07/05/16 Range/Units 17:38 21:27 07:51 Sodium (137-145) mmol/L BUN (7-17) mg/dL Glucose (74-99) mg/dL POC Glucose (mg/dL) 153 H 177 H 141 H (75-99) mg/dL 07/05/16 07/05/16 Range/Units 10:41 11:39 Sodium 134 L (137-145) mmol/L BUN 24 H (7-17) mg/dL Glucose 127 H (74-99) mg/dL POC Glucose (mg/dL) 129 H (75-99) mg/dL Microbiology - Last 24 Hours (Table) 07/03/16 19:00 Blood Culture - Preliminary Blood No Growth after 24 hours Assessment and Plan Plan: Impression: #1 Atypical chest pain, acute coronary syndrome ruled out. #2 Acute exacerbation of chronic obstructive pulmonary disease with no clear evidence of pneumonia. #3 Diabetes mellitus, type II. #4 Hyperlipidemia. #5 Hypertension. #6 Gastroesophageal reflux disease. Plan: The patient was seen and evaluated by Dr. Sams. The patient is improved today as compared to yesterday and is quite anxious to go home. She is cleared for discharge from the pulmonary standpoint. She'll keep her scheduled appointment with Dr. Weeks in our office. She is however encouraged to call sooner with any recurrence of symptoms or other questions or concerns.
[2016-07-09] MEDS ORDERED: NON-FORMULARY DRUG (Alendronate Sodium [Fosamax] 70 MG) PO SCH (21:32)
--- NOTE | 2016-07-26 08:57 | ECHOL ---
Referral Reason: CP and Shortness of breath. MEASUREMENTS: HEIGHT: 162.0 WEIGHT: 83.0 2-D BSA: 1.88 RVIDd: 2.7cm IVSd: 1.4cm LVIDd: 4.8cm IVSs" 1.8cm LVIDs: 2.4cm LVPWs: 1.9cm M-MODE Ao Diam: 3.7cm AV Cusp: 1.3cm LA Diam: 3.0cm FINDINGS: ECG rhythm: Sinus rhythm. Study Quality: Study was a technically adequate study. Limited. Study Left Ventricle: There is borderline concentric left ventricular hypertrophy. Overall left ventricular systolic function is normal with an EF between 60-65%. CONCLUSIONS: 1. Sinus rhythm. 2. Limited Study. 3. There is borderline concentric left ventricular hypertrophy. 4. Overall left ventricular systolic function is normal with an EF between 60- 65%. MTDD
== END 2016-07-05 14:32 | disposition home or self-care (01) | DRG 190 ==
LOC: EC 18:03 → 6SEL 21:28 → 4MS4W 07-04 08:05
PROVIDERS: ADMIT Family Medicine; ATTEND Family Medicine
DX: J44.0 Chronic obstructive pulmonary disease with (acute) lower respiratory infection (principal); J18.9 Pneumonia, unspecified organism; E11.9 Type 2 diabetes mellitus without complications; I11.9 Hypertensive heart disease without heart failure; J44.1 Chronic obstructive pulmonary disease with (acute) exacerbation; R09.02 Hypoxemia; R07.89 Other chest pain; F32.9 Major depressive disorder, single episode, unspecified; E03.9 Hypothyroidism, unspecified; E78.5 Hyperlipidemia, unspecified; K21.9 Gastro-esophageal reflux disease without esophagitis; E66.9 Obesity, unspecified; Z79.83 Long term (current) use of bisphosphonates; Z79.899 Other long term (current) drug therapy; Z82.49 Family history of ischemic heart disease and other diseases of the circulatory system; Z87.891 Personal history of nicotine dependence; Z79.51 Long term (current) use of inhaled steroids; Z68.30 Body mass index [BMI] 30.0-30.9, adult; Z98.49 Cataract extraction status, unspecified eye; Z85.828 Personal history of other malignant neoplasm of skin; Z86.19 Personal history of other infectious and parasitic diseases; Z86.39 Personal history of other endocrine, nutritional and metabolic disease; Y95 Nosocomial condition
CPT/HCPCS: 36415; 71020; 71275; 80048; 80053; 80061; 82550; 82553; 83036; 83880; 84484; 85025; 85379; 85610; 85730; 87040; 93005; 93308; 94640

== ENCOUNTER 2016-08-02 05:24 | Observation (INO) | payer MEDICARE, BC ==
[2016-08-02] MEDS ORDERED: ASPIRIN 81 MG CHEW PO STA (05:45)
--- NOTE | 2016-08-02 05:50 | ED ---
Chest Pain HPI - General Chief Complaint: Chest Pain Stated Complaint: Chest Pain Time Seen by Provider: 08/02/16 05:41 Source: patient, EMS Mode of arrival: EMS Limitations: no limitations - History of Present Illness Initial Comments: This patient is an 86-year-old woman who comes in by EMS to be evaluated for chest pain. She is not the best of historians, not being able to answer many questions regarding the pain even when offered multiple choices for the answers. The patient states she woke with the pain shortly before she called EMS. She cannot characterize the pain. She is not able to give me in intensity. She did not note any worsening or relieving factors, stating that the pain has been improving on its own, and is now nearly gone. She did not note any associated symptoms. She has not had this type pain previously. MD Complaint: chest pain Onset/Timin -: hour(s) Onset: during rest, awoke with symptoms Pain Location: substernal Pain Radiation: none Consistency: other (Improving) - Related Data Home Medications Medication Instructions Recorded Confirmed Docusate [Colace] 100 mg PO QAM 02/14/14 08/02/16 Fluticasone/Salmeterol [Advair 1 puff INHALATION RT-BID 02/14/14 08/02/16 250-50 Diskus] Ipratropium-Albuterol Nebulize 3 ml INHALATION RT-QID PRN 02/14/14 08/02/16 [Duoneb 0.5 mg-3 mg/3 ml Soln] Levothyroxine Sodium [Synthroid] 125 mcg PO DAILY 02/14/14 08/02/16 Montelukast [Singulair] 10 mg PO HS 02/14/14 08/02/16 Ramipril [Altace] 10 mg PO QAM 02/14/14 08/02/16 Simvastatin [Zocor] 40 mg PO HS 02/14/14 08/02/16 Solifenacin Succinate [Vesicare] 5 mg PO QAM 02/14/14 08/02/16 Alendronate Sodium [Fosamax] 70 mg PO MO 08/04/14 08/02/16 Acetaminophen [Tylenol] 325 - 650 mg PO Q4H PRN 08/05/14 08/02/16 Albuterol Inhaler [Ventolin Hfa 1 - 2 puff INHALATION RT-Q6H PRN 08/05/14 Inhaler] Aricept 23mg 23 mg PO DAILY 05/15/16 08/02/16 LORazepam [Ativan] 0.5 mg PO BID 05/15/16 08/02/16 Vilazodone HCl [Viibryd] 40 mg PO DAILY 05/15/16 08/02/16 amLODIPine BESYLATE [Norvasc] 5 mg PO HS 05/15/16 08/02/16 Calcium Carbonate [Tums Ultra 2,354 mg PO QAM 07/03/16 08/02/16 Strength] Omeprazole [PriLOSEC] 10 mg PO QAM 07/03/16 08/02/16 Simethicone [Gas-X] 125 mg PO PC-TID PRN 07/03/16 08/02/16 Previous Rx's Medication Instructions Recorded Levofloxacin [Levaquin] 250 mg PO DAILY #10 tab 07/05/16 Allergies Allergy/AdvReac Type Severity Reaction Status Date / Time steroid AdvReac Confusion Uncoded 08/02/16 05:35 Review of Systems ROS Statement: Those systems with pertinent positive or pertinent negative responses have been documented in the HPI. ROS Other: All systems not noted in ROS Statement are negative. Constitutional: Denies: fever Respiratory: Denies: cough, dyspnea Cardiovascular: Reports: as per HPI, chest pain. Denies: palpitations, edema, syncope Gastrointestinal: Denies: abdominal pain, nausea, vomiting Genitourinary: Denies: frequency Musculoskeletal: Denies: back pain Skin: Denies: rash Neurological: Denies: headache, weakness, numbness EKG Findings - EKG Results: EKG: interpreted by ERMD, sinus rhythm, normal axis, normal QRS, normal ST/T EKG shows: bradycardia (Rate approximately 51 bpm) - Blocks, [place], Hypertrophy, ST Abn: AV and intraventricular conduction: 1 AV block Past Medical History Past Medical History: Asthma, Cancer, Diabetes Mellitus, GERD/Reflux, Hyperlipidemia, Hypertension, Memory Impairment, Thyroid Disorder Additional Past Medical History / Comment(s): hypoglycemia, shingles long time ago; skin ca History of Any Multi-Drug Resistant Organisms: None Reported Past Surgical History: No Surgical Hx Reported Additional Past Surgical History / Comment(s): rectocele repair, cataracts Past Anesthesia/Blood Transfusion Reactions: No Reported Reaction Past Psychological History: No Psychological Hx Reported Smoking Status: Former smoker Past Alcohol Use History: None Reported Additional Past Alcohol Use History / Comment(s): started smoking at age 19 smoked 1 ppd quit at age 47 Past Drug Use History: None Reported - Past Family History Father Family Medical History: Myocardial Infarction (AR) Mother History Unknown: Yes General Exam Limitations: no limitations General appearance: alert, in no apparent distress Head exam: Present: atraumatic, normocephalic, normal inspection Eye exam: Present: normal appearance. Absent: scleral icterus, conjunctival injection Neck exam: Present: normal inspection Respiratory exam: Present: normal lung sounds bilaterally, chest wall tenderness. Absent: respiratory distress, wheezes, rales, rhonchi, stridor, decreased breath sounds Cardiovascular Exam: Present: regular rate, normal rhythm, normal heart sounds. Absent: systolic murmur, diastolic murmur, rubs, gallop GI/Abdominal exam: Present: soft. Absent: distended, tenderness, guarding, rebound Extremities exam: Present: normal inspection, normal capillary refill. Absent: pedal edema, calf tenderness Back exam: Absent: CVA tenderness (R), CVA tenderness (L) Neurological exam: Present: alert Skin exam: Present: warm, dry, intact, normal color. Absent: rash Course Vital Signs 08/02/16 08/02/16 05:25 06:25 Temperature 98.2 F 97.8 F Pulse Rate 81 53 L Respiratory 20 18 Rate Blood Pressure 137/64 O2 Sat by Pulse 96 97 Oximetry Chest Pain [facility] - MDM This patient is an 86-year-old woman who presents after an episode of chest pain that she is not able to characterize well for us here woke her from sleep. I suspect there may be an element of sleep apnea present, but the patient also states she has not had a recent stress test so will admit patient to have cardiology consultation, telemetry monitoring, and serial cardiac enzymes. The initial workup is negative. After further discussion with the patient's family, they have expressed that she has made clear to them that she does not wish to have any aggressive treatment. She would not want a stent or any other interventional treatment for heart disease. She would not want CPR or any type of code interventions. They therefore asked to take her back to her home and they will return should the pain recur. We discussed that there is indeed a risk of missed AR, and cardiac /disability by stopping her evaluation and treatment here and they are accepting of that risk. Disposition Clinical Impression: Angina at rest Disposition: HOME SELF-CARE Condition: Fair
[2016-08-02 06:15] LABS: ALT 38 U/L (9-52); AST 31 U/L (14-36); Alkaline Phosphatase 57 U/L (38-126); Amylase 48 U/L (30-110); Anion Gap 8 mmol/L; Blood Urea Nitrogen 20 mg/dL (7-17); Calcium 9.3 mg/dL (8.4-10.2); Carbon Dioxide 25 mmol/L (22-30); Chloride 102 mmol/L (98-107); Glucose 104 mg/dL (74-99); Magnesium 2.2 mg/dL (1.6-2.3); Non-African American GFR(MDRD) >60 (>60 ml/min/1.73 sqM); Potassium 4.6 mmol/L (3.5-5.1); Sodium 135 mmol/L (137-145); Total Bilirubin 0.5 mg/dL (0.2-1.3); Total Protein 6.4 g/dL (6.3-8.2)
[2016-08-02 06:21] LABS: Basophils % (A) 1 %; CH 32.6; CHCM 33.5; Eosinophils # (A) 0.2 k/uL (0-0.7); Eosinophils % (A) 3 %; HCT 37.6 % (34.0-46.0); HGB 12.3 gm/dL (11.4-16.0); Luc % (Auto) 4; Lymphocytes # (A) 1.7 k/uL (1.0-4.8); Lymphocytes % (A) 34 %; MCHC 32.7 g/dL (31.0-37.0); MCV 97.9 fL (80.0-100.0); Mean Platelet Volume 6.9; Monocytes # (A) 0.5 k/uL (0-1.0); Monocytes % (A) 9 %; Neutrophils # (A) 2.4 k/uL (1.3-7.7); Neutrophils % (A) 48 %; Partial Thromboplastin Time 22.8 sec (22.0-30.0); Prothrombin Time 10.2 sec (9.0-12.0); RBC 3.84 m/uL (3.80-5.40); RDW 14.2 % (11.5-15.5); WBC (Perox) 5.38
[2016-08-02 06:25] VITALS: RESP 18
--- NOTE | 2016-08-02 06:25 | XR ---
INDICATION: Chest pain COMPARISON: CXR 07/03/16 FINDINGS: AP and lateral views of the chest are obtained. There is stable mild cardiomegaly. There is thoracic aortic atherosclerosis. Pulmonary vascularity is normal. There is right basilar subsegmental atelectasis and left basilar scarring. There is no pleural effusion or pneumothorax. There are no acute osseous findings. 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 IMPRESSION: No radiographic evidence of acute cardiopulmonary disease. Right basilar subsegmental atelectasis and left basilar scarring.
[2016-08-02 06:30] LABS: Creatine Kinase 103 U/L (30-135)
[2016-08-02 06:41] LABS: Creatine Kinase MB 0.9 ng/mL (0.0-2.4); Troponin I <0.012 ng/mL (0.000-0.034)
[2016-08-02] MEDS ORDERED: NITROGLYCERIN SL TABS 0.4 MG TAB SUBLINGUAL PRN (06:57)
[2016-08-02] MEDS ORDERED: IPRATROPIUM-ALBUTEROL 3 ML NEB INHALATION PRN (06:59)
[2016-08-02] MEDS ORDERED: ALBUTEROL INHALER 60 PUFF/8 GM INHALER INHALATION PRN (06:59)
[2016-08-02] MEDS ORDERED: SIMETHICONE 80 MG CHEWABLE PO PRN (06:59)
[2016-08-02] MEDS ORDERED: SODIUM CHLORIDE 0.9% 1,000 ML IV SCH (07:00)
[2016-08-02 07:37] VITALS: BP 148/65; PULSE 52; TEMP 98
[2016-08-02] MEDS ORDERED: SYMBICORT 80-4.5 MCG INHALER INHALATION SCH (08:00)
[2016-08-02] MEDS ORDERED: OXYBUTYNIN XL 5 MG TAB.ER.24 PO SCH (09:00)
[2016-08-02] MEDS ORDERED: DOCUSATE 100 MG CAP PO SCH (09:00)
[2016-08-02] MEDS ORDERED: CALCIUM CARBONATE 500 MG CHEWABLE PO SCH (09:00)
[2016-08-02] MEDS ORDERED: LEVOFLOXACIN 250 MG TAB PO SCH (09:00)
[2016-08-02] MEDS ORDERED: NON-FORMULARY DRUG (Vilazodone Hcl [Viibryd] 40 MG) PO SCH (09:00)
[2016-08-02] MEDS ORDERED: DONEPEZIL 10 MG TAB PO SCH (09:00)
[2016-08-02] MEDS ORDERED: PANTOPRAZOLE 40 MG TABLET PO SCH (09:00)
[2016-08-02] MEDS ORDERED: LEVOTHYROXINE 125 MCG TAB PO SCH (09:00)
[2016-08-02] MEDS ORDERED: LORazepam 0.5 MG TAB PO SCH (09:00)
[2016-08-02] MEDS ORDERED: LISINOPRIL 20 MG TAB PO SCH (09:00)
--- NOTE | 2016-08-02 11:36 | HP ---
This dictation is both H&P and Discharge Summary. DATE OF ADMISSION: Patient left AMA before being evaluated by my service.
[2016-08-02] MEDS ORDERED: amLODIPine 5 MG TAB PO SCH (21:00)
[2016-08-02] MEDS ORDERED: MONTELUKAST 10 MG TAB PO SCH (21:00)
[2016-08-02] MEDS ORDERED: ATORVASTATIN 20 MG TAB PO SCH (21:00)
[2016-08-03] MEDS ORDERED: ASPIRIN 325 MG TAB PO SCH (09:00)
[2016-08-06] MEDS ORDERED: NON-FORMULARY DRUG (Alendronate Sodium [Fosamax] 70 MG) PO SCH (06:59)
== END 2016-08-02 08:08 | disposition left against medical advice (07) ==
LOC: EC 05:24 → 3OBS 06:57
PROVIDERS: ADMIT Family Medicine; ATTEND Family Medicine
DX: I20.9 Angina pectoris, unspecified (principal); Z53.21 Procedure and treatment not carried out due to patient leaving prior to being seen by health care provider; J45.909 Unspecified asthma, uncomplicated; E07.9 Disorder of thyroid, unspecified; K21.9 Gastro-esophageal reflux disease without esophagitis; I10 Essential (primary) hypertension; E78.5 Hyperlipidemia, unspecified; Z79.51 Long term (current) use of inhaled steroids; Z79.899 Other long term (current) drug therapy; Z88.8 Allergy status to other drugs, medicaments and biological substances; Z85.828 Personal history of other malignant neoplasm of skin; Z87.891 Personal history of nicotine dependence; Z82.49 Family history of ischemic heart disease and other diseases of the circulatory system; Z79.83 Long term (current) use of bisphosphonates
CPT/HCPCS: 36415; 93005; 80053; 82150; 82550; 82553; 83690; 83735; 84484; 85025; 85610; 85730; 71020; 99285; G0378

== ENCOUNTER → 2017-06-03 | Outpatient (CLI) | payer MEDICARE, BC ==
--- NOTE | 2017-06-03 17:17 | XR ---
EXAMINATION: XR chest 2V DATE AND TIME: 06/03/2017 5:03 PM ORDERING PROVIDER: Jose M Robertson MD CLINICAL INDICATION: J41.1 Mucopurulent chronic bronchitis TECHNIQUE: PA and lateral COMPARISON: 08/02/2016 DESCRIPTION: There is silhouetting of the medial half of the left diaphragm not seen on the prior deb dy, consistent with airlessness within a portion of the left lower lobe. This can correlate with left lower lobe bronchopneumonia posteromedially. The pleural spaces are negative. The cardiac silhouette is enlarged. The skeletal structures are intact without focal findings. The soft tissues are unremarkable. IMPRESSION: FINDINGS CONSISTENT WITH LEFT LOWER LOBE BRONCHOPNEUMONIA. FOLLOW-UP RADIOGRAPHS TO PROVE RESOLUTION IS RECOMMENDED IN 9 WEEKS, UNLESS INDICATED SOONER.
== END | disposition home or self-care (01) ==
LOC: RADXRMAIN 16:49
PROVIDERS: ATTEND Family Medicine
DX: J41.1 Mucopurulent chronic bronchitis (principal)
CPT/HCPCS: 71046

== ENCOUNTER → 2017-08-15 | Outpatient (CLI) | payer MEDICARE, BC | END | disposition home or self-care (01) | LOC: RADECHMAIN 16:44 | PROVIDERS: ATTEND Family Medicine | DX: Z53.9 Procedure and treatment not carried out, unspecified reason (principal) | CPT/HCPCS: 93225; 93226 ==

== ENCOUNTER → 2017-08-15 | Outpatient (CLI) | payer MEDICARE, BC ==
--- NOTE | 2017-08-29 18:27 | HM ---
HOLTER MONITOR REPORT HOLTER MONITOR: Patient was referred by Dr. Jose M Robertson for a Holter monitor. Sinus rhythm with heart rate ranging from 40 to 110 beats per minute, average 56 beats per minute. Occasional premature beats. One episode of sinus bradycardia at 40 beats per minute at 9:43 a.m. MMLAVERNE / DOT: [id number] /
--- NOTE | 2017-09-04 10:20 | ECHOF ---
Referral Reason:CHF I50.9 MEASUREMENTS -------- HEIGHT: 165.1 cm WEIGHT: 77.1 kg BP: RVIDd: 2.9 cm (< 3.3) IVSd: 0.8 cm (0.6 - 1.1) LVIDd: 4.2 cm (3.9 - 5.3) LVPWd: 0.9 cm (0.6 - 1.1) IVSs: 1.3 cm LVIDs: 3.8 cm LVPWs: 1.2 cm LAESV Index (A-L): 21.92 ml/m Ao Diam: 3.8 cm (2.0 - 3.7) AV Cusp: 1.4 cm (1.5 - 2.6) LA Diam: 2.2 cm (2.7 - 3.8) MV E Skinny: 0.74 m/s MV DecT: 378 ms MV A Skinny: 1.20 m/s MV E/A Ratio: 0.61 RAP: 5.00 mmHg RVSP: 14.63 mmHg FINDINGS -------- Sinus rhythm. This was a technically adequate study. The left ventricular size is normal. Left ventricular wall thickness is normal. Overall left vent ricular systolic function is normal with, an EF between 55 - 60 %. The right ventricle is normal in size and function. Normal LA size by volume 22+/-6 ml/m2. The right atrium was not well visualized. There is mild aortic valve sclerosis. There is no evidence of aortic regurgitation. There is no e vidence of aortic stenosis. Mild mitral annular calcification present. There is trace to mild mitral regurgitation. Trace tricuspid regurgitation present. Right ventricular systolic pressure is normal at < 35 mmHg. There is no evidence of pulmonary hypertension. The pulmonic valve was not well visualized. The aortic root size is normal. Normal inferior vena cava with normal inspiratory collapse consistent with estimated right atrial pre ssure of 5 mmHg. There is no pericardial effusion. CONCLUSIONS -------- 1. Sinus rhythm. 2. This was a technically adequate study. 3. The left ventricular size is normal. 4. Left ventricular wall thickness is normal. 5. Overall left ventricular systolic function is normal with, an EF between 55 - 60 %. 6. Normal LA size by volume 22+/-6 ml/m2. 7. The right atrium was not well visualized. 8. There is mild aortic valve sclerosis. 9. Mild mitral annular calcification present. 10. There is trace to mild mitral regurgitation. 11. Trace tricuspid regurgitation present. 12. Right ventricular systolic pressure is normal at < 35 mmHg. 13. There is no evidence of pulmonary hypertension. 14. The pulmonic valve was not well visualized. 15. The aortic root size is normal. 16. There is no pericardial effusion. FRONT ELEVATOR OPERATOR: Baron Johnson RDCS
== END | disposition home or self-care (01) ==
LOC: RADECHMAIN 16:35
PROVIDERS: ATTEND Family Medicine
DX: I49.40 Unspecified premature depolarization (principal); I10 Essential (primary) hypertension
CPT/HCPCS: 93225; 93226; 93306

== ENCOUNTER 2017-09-02 02:41 | Emergency (ER) | payer MEDICARE, BC ==
[2017-09-02 03:58] LABS: Basophils % (A) 1 %; Eosinophils # (A) 0.1 k/uL (0-0.7); Eosinophils % (A) 2 %; HCT 35.5 % (34.0-46.0); HGB 12.1 gm/dL (11.4-16.0); Lymphocytes # (A) 1.6 k/uL (1.0-4.8); Lymphocytes % (A) 26 %; MCH 31.1 pg (25.0-35.0); MCHC 34.1 g/dL (31.0-37.0); MCV 91.3 fL (80.0-100.0); Monocytes # (A) 0.6 k/uL (0-1.0); Monocytes % (A) 10 %; Neutrophils # (A) 3.7 k/uL (1.3-7.7); Neutrophils % (A) 60 %; Platelet Count 210 k/uL (150-450); RBC 3.89 m/uL (3.80-5.40); RDW 14.3 % (11.5-15.5); WBC 6.2 k/uL (3.8-10.6)
--- NOTE | 2017-09-02 04:04 | XR ---
EXAMINATION TYPE: XR chest 1V portable DATE OF EXAM: 09/02/2017 COMPARISON: 07/17/2017 HISTORY: Asthma TECHNIQUE: Single frontal view of the chest is obtained. FINDINGS: There is some linear density at the left lung base. The other lung rose are clear. There is no heart failure. There are chest leads. Thoracic aorta is atheromatous. IMPRESSION: Subsegmental atelectasis at the left lung base without change compared to old exam. No p ulmonary consolidation.
[2017-09-02 04:11] LABS: Albumin 3.8 g/dL (3.5-5.0); Calcium 9.4 mg/dL (8.4-10.2); Potassium 4.1 mmol/L (3.5-5.1); Total Bilirubin 0.8 mg/dL (0.2-1.3); Total Protein 5.9 g/dL (6.3-8.2)
[2017-09-02 04:12] LABS: Partial Thromboplastin Time 23.3 sec (22.0-30.0)
[2017-09-02 04:20] LABS: Creatine Kinase 179 U/L (30-135)
[2017-09-02 04:29] VITALS: RESP 18
[2017-09-02 04:31] LABS: D-Dimer 2.69 mg/L FEU (<0.60)
[2017-09-02 04:33] LABS: Creatine Kinase MB 1.1 ng/mL (0.0-2.4); Troponin I <0.012 ng/mL (0.000-0.034)
--- NOTE | 2017-09-02 05:24 | CT ---
EXAMINATION TYPE: CT chest angio for PE DATE OF EXAM: 09/02/2017 COMPARISON: 07/03/2016 HISTORY: Elevated D-dimer; Dyspnea CT DLP: 396.30 mGycm Automated exposure control for dose reduction was used. CONTRAST: CT Chest for pulmonary embolism performed with with IV Contrast, patient injected with 80 mL of Isovu e 370. FINDINGS: There are 3-D post processed images. There are some coarse reticular density in the posterior right upper lobe. There is mild linear densi ty at the posterior lung bases consistent with scarring and subsegmental atelectasis. There is no ple ural effusion. There is 1 cm nodular density at the lateral left lung base. Heart appears enlarged. I see no filling defects in the pulmonary arteries. There are no hilar masses. There is no mediastina l adenopathy. Thoracic aorta is atheromatous. The ascending aorta measures 4 cm. There is no evidence of dissection. There is hiatal hernia noted. There are spondylotic changes in the thoracic spine. I see no compression fracture. IMPRESSION: No evidence of pulmonary embolism. Cardiomegaly. Pulmonary infiltrates and fibrotic changes as above that are unchanged at the lung bases but appear improved in the right upper lobe compared to last exa m. 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 No sign of dissection.
[2017-09-02] MEDS ORDERED: SODIUM CHLORIDE 0.9% 500 ML IV STA (05:44)
[2017-09-02] MEDS ORDERED: IPRATROPIUM-ALBUTEROL 3 ML NEB INHALATION STA (05:58)
--- NOTE | 2017-09-02 06:01 | ED ---
SOB HPI - General Chief Complaint: Shortness of Breath Stated Complaint: Difficulty Breathing Time Seen by Provider: 09/02/17 03:05 Source: patient Mode of arrival: EMS Limitations: no limitations - History of Present Illness Initial Comments: This patient is an 87-year-old woman who developed dyspnea approximately 1-2 hours before arrival here. She denies any associated symptoms, including no fever or chills, no cough, no chest pain. She has not had change in urination or bowel movements. No leg pain. She has had some leg edema but she did have leg contusion due to recent fall. MD Complaint: shortness of breath Onset/Timin -: hour(s) Improves With: nothing Worsens With: exertion Known History Of: COPD Associated Symptoms: denies other symptoms Treatments Prior to Arrival: none - Related Data Home Medications Medication Instructions Recorded Confirmed Docusate [Colace] 100 mg PO QAM 02/14/14 08/02/16 Fluticasone/Salmeterol [Advair 1 puff INHALATION RT-BID 02/14/14 08/02/16 250-50 Diskus] Ipratropium-Albuterol Nebulize 3 ml INHALATION RT-QID PRN 02/14/14 08/02/16 [Duoneb 0.5 mg-3 mg/3 ml Soln] Levothyroxine Sodium [Synthroid] 125 mcg PO DAILY 02/14/14 08/02/16 Montelukast [Singulair] 10 mg PO HS 02/14/14 08/02/16 Ramipril [Altace] 10 mg PO QAM 02/14/14 08/02/16 Simvastatin [Zocor] 40 mg PO HS 02/14/14 08/02/16 Solifenacin Succinate [Vesicare] 5 mg PO QAM 02/14/14 08/02/16 Alendronate Sodium [Fosamax] 70 mg PO MO 08/04/14 08/02/16 Acetaminophen [Tylenol] 325 - 650 mg PO Q4H PRN 08/05/14 08/02/16 Albuterol Inhaler [Ventolin Hfa 1 - 2 puff INHALATION RT-Q6H PRN 08/05/14 Inhaler] Aricept 23mg 23 mg PO DAILY 05/15/16 08/02/16 LORazepam [Ativan] 0.5 mg PO BID 05/15/16 08/02/16 Vilazodone HCl [Viibryd] 40 mg PO DAILY 05/15/16 08/02/16 amLODIPine BESYLATE [Norvasc] 5 mg PO HS 05/15/16 08/02/16 Calcium Carbonate [Tums Ultra 2,354 mg PO QAM 07/03/16 08/02/16 Strength] Omeprazole [PriLOSEC] 10 mg PO QAM 07/03/16 08/02/16 Simethicone [Gas-X] 125 mg PO PC-TID PRN 07/03/16 08/02/16 Previous Rx's Medication Instructions Recorded Levofloxacin [Levaquin] 250 mg PO DAILY #10 tab 07/05/16 methylPREDNISolone [Medrol] 4 mg PO DAILY #5 tablet 09/02/17 Allergies Allergy/AdvReac Type Severity Reaction Status Date / Time steroid AdvReac Confusion Uncoded 09/02/17 03:03 Review of Systems ROS Statement: Those systems with pertinent positive or pertinent negative responses have been documented in the HPI. ROS Other: All systems not noted in ROS Statement are negative. Constitutional: Reports: weakness. Denies: fever, chills Respiratory: Reports: cough, dyspnea. Denies: wheezes, hemoptysis Cardiovascular: Reports: edema. Denies: chest pain, palpitations, syncope Gastrointestinal: Denies: abdominal pain, vomiting, diarrhea Genitourinary: Denies: dysuria, hematuria Musculoskeletal: Denies: back pain Skin: Denies: rash Neurological: Denies: headache, weakness, numbness Past Medical History Past Medical History: Asthma, Cancer, Diabetes Mellitus, GERD/Reflux, Hyperlipidemia, Hypertension, Memory Impairment, Thyroid Disorder Additional Past Medical History / Comment(s): hypoglycemia, shingles long time ago; skin ca History of Any Multi-Drug Resistant Organisms: None Reported Past Surgical History: No Surgical Hx Reported Additional Past Surgical History / Comment(s): rectocele repair, cataracts Past Anesthesia/Blood Transfusion Reactions: No Reported Reaction Past Psychological History: No Psychological Hx Reported Smoking Status: Former smoker Past Alcohol Use History: None Reported Past Drug Use History: None Reported - Past Family History Father Family Medical History: Myocardial Infarction ([place]) Mother History Unknown: Yes General Exam Limitations: no limitations General appearance: alert, in no apparent distress Head exam: Present: atraumatic, normocephalic Eye exam: Present: normal appearance. Absent: scleral icterus, conjunctival injection Respiratory exam: Present: wheezes. Absent: respiratory distress, rales, rhonchi, stridor, accessory muscle use, decreased breath sounds, prolonged expiratory Cardiovascular Exam: Present: normal rhythm, bradycardia (Rate 56 at my exam), normal heart sounds GI/Abdominal exam: Present: soft. Absent: distended, tenderness, guarding, rebound, rigid Extremities exam: Present: normal capillary refill, pedal edema (Trace ankle edema.), other (Ecchymosis lateral aspect of the right lower leg). Absent: tenderness, calf tenderness Neurological exam: Present: alert Skin exam: Present: warm, dry, intact, normal color. Absent: rash Course Vital Signs 09/02/17 09/02/17 09/02/17 03:00 03:43 04:28 Temperature 98.2 F Pulse Rate 52 L 52 L Respiratory 21 21 18 Rate Blood Pressure 160/67 152/67 O2 Sat by Pulse 96 97 Oximetry 09/02/17 09/02/17 09/02/17 05:09 06:01 06:06 Temperature Pulse Rate 50 L 52 L 52 L Respiratory 18 Rate Blood Pressure 161/69 O2 Sat by Pulse 96 Oximetry 09/02/17 07:21 Temperature 98.4 F Pulse Rate 50 L Respiratory 18 Rate Blood Pressure 143/64 O2 Sat by Pulse 96 Oximetry Medical Decision Making - Medical Decision Making Patient is an 87-year-old woman in for dyspnea that developed 1-2 hours before arriving here. She did receive nebulized albuterol and is feeling much better. The patient did ambulate around the department she is able to walk to the bathroom and return without developing dyspnea. She would like to go home if possible, and the labs support this. She does have a degree of hyponatremia, and is given small fluid bolus. Discussed with family that she should cut her hydrochlorothiazide dosing to every other day and have this rechecked. Discussed return parameters. - Lab Data Result diagrams: 09/02/17 03:28 09/02/17 03:28 Lab Results 09/02/17 09/02/17 09/02/17 Range/Units 03:28 03:28 03:28 WBC 6.2 (3.8-10.6) k/uL RBC 3.89 (3.80-5.40) m/uL Hgb 12.1 (11.4-16.0) gm/dL Hct 35.5 (34.0-46.0) % MCV 91.3 (80.0-100.0) fL MCH 31.1 (25.0-35.0) pg MCHC 34.1 (31.0-37.0) g/dL RDW 14.3 (11.5-15.5) % Plt Count 210 (150-450) k/uL Neutrophils % 60 % Lymphocytes % 26 % Monocytes % 10 % Eosinophils % 2 % Basophils % 1 % Neutrophils # 3.7 (1.3-7.7) k/uL Lymphocytes # 1.6 (1.0-4.8) k/uL Monocytes # 0.6 (0-1.0) k/uL Eosinophils # 0.1 (0-0.7) k/uL Basophils # 0.0 (0-0.2) k/uL PT (9.0-12.0) sec INR (<1.2) APTT (22.0-30.0) sec D-Dimer (<0.60) mg/L FEU Sodium 128 L (137-145) mmol/L Potassium 4.1 (3.5-5.1) mmol/L Chloride 94 L (98-107) mmol/L Carbon Dioxide 23 (22-30) mmol/L Anion Gap 11 mmol/L BUN 19 H (7-17) mg/dL Creatinine 1.00 (0.52-1.04) mg/dL Est GFR (CKD-EPI)AfAm 59 (>60 ml/min/1.73 sqM) Est GFR (CKD-EPI)NonAf 51 (>60 ml/min/1.73 sqM) Glucose 115 H (74-99) mg/dL Calcium 9.4 (8.4-10.2) mg/dL Total Bilirubin 0.8 (0.2-1.3) mg/dL AST 29 (14-36) U/L ALT 37 (9-52) U/L Alkaline Phosphatase 77 (38-126) U/L Total Creatine Kinase 179 H (30-135) U/L CK-MB (CK-2) 1.1 (0.0-2.4) ng/mL CK-MB (CK-2) Rel Index 0.6 Troponin I <0.012 (0.000-0.034) ng/mL NT-Pro-B Natriuret Pep pg/mL Total Protein 5.9 L (6.3-8.2) g/dL Albumin 3.8 (3.5-5.0) g/dL 09/02/17 09/02/17 Range/Units 03:28 03:28 WBC (3.8-10.6) k/uL RBC (3.80-5.40) m/uL Hgb (11.4-16.0) gm/dL Hct (34.0-46.0) % MCV (80.0-100.0) fL MCH (25.0-35.0) pg MCHC (31.0-37.0) g/dL RDW (11.5-15.5) % Plt Count (150-450) k/uL Neutrophils % % Lymphocytes % % Monocytes % % Eosinophils % % Basophils % % Neutrophils # (1.3-7.7) k/uL Lymphocytes # (1.0-4.8) k/uL Monocytes # (0-1.0) k/uL Eosinophils # (0-0.7) k/uL Basophils # (0-0.2) k/uL PT 10.0 (9.0-12.0) sec INR 1.0 (<1.2) APTT 23.3 (22.0-30.0) sec D-Dimer 2.69 H (<0.60) mg/L FEU Sodium (137-145) mmol/L Potassium (3.5-5.1) mmol/L Chloride (98-107) mmol/L Carbon Dioxide (22-30) mmol/L Anion Gap mmol/L BUN (7-17) mg/dL Creatinine (0.52-1.04) mg/dL Est GFR (CKD-EPI)AfAm (>60 ml/min/1.73 sqM) Est GFR (CKD-EPI)NonAf (>60 ml/min/1.73 sqM) Glucose (74-99) mg/dL Calcium (8.4-10.2) mg/dL Total Bilirubin (0.2-1.3) mg/dL AST (14-36) U/L ALT (9-52) U/L Alkaline Phosphatase (38-126) U/L Total Creatine Kinase (30-135) U/L CK-MB (CK-2) (0.0-2.4) ng/mL CK-MB (CK-2) Rel Index Troponin I (0.000-0.034) ng/mL NT-Pro-B Natriuret Pep 65 pg/mL Total Protein (6.3-8.2) g/dL Albumin (3.5-5.0) g/dL Disposition Clinical Impression: COPD exacerbation, Hyponatremia Disposition: HOME SELF-CARE Condition: Fair Instructions: Hyponatremia (ED), COPD (Chronic Obstructive Pulmonary Disease) ( ED) Additional Instructions: Reduce your use of hydrochlorothiazide to every other day. Follow-up with your doctor as we discussed. Prescriptions: methylPREDNISolone [Medrol] 4 mg PO DAILY #5 tablet Is patient prescribed a controlled substance at d/c from ED?: No Referrals: Jose M Robertson MD [Primary Care Provider] - 1-2 days
[2017-09-02 07:22] VITALS: BP 143/64; PULSE 50; TEMP 98.4
== END 2017-09-02 07:22 | disposition home or self-care (01) ==
LOC: EC 02:41
DX: J44.1 Chronic obstructive pulmonary disease with (acute) exacerbation (principal); E87.1 Hypo-osmolality and hyponatremia; R60.0 Localized edema; J45.909 Unspecified asthma, uncomplicated; E11.9 Type 2 diabetes mellitus without complications; K21.9 Gastro-esophageal reflux disease without esophagitis; E78.5 Hyperlipidemia, unspecified; I10 Essential (primary) hypertension; E07.9 Disorder of thyroid, unspecified; Z85.828 Personal history of other malignant neoplasm of skin; Z87.891 Personal history of nicotine dependence; Z79.51 Long term (current) use of inhaled steroids; Z79.899 Other long term (current) drug therapy; Z88.8 Allergy status to other drugs, medicaments and biological substances
CPT/HCPCS: 36415; 94640; 93005; 85379; 83880; 80053; 82550; 82553; 84484; 85025; 85610; 85730; 71045; 71275; 99285; 96360; Q9967

== ENCOUNTER 2017-09-11 01:21 | Inpatient (IN) | payer MEDICARE, BC ==
--- NOTE | 2017-09-11 02:25 | ED ---
General Adult HPI - General Chief complaint: Shortness of Breath Stated complaint: BART Source: patient, EMS Mode of arrival: EMS Limitations: no limitations - History of Present Illness Initial comments: Dictation was produced using [employer] dictation software. please excuse any grammatical, word or spelling errors. Chief Complaint: 87-year-old female past medical history of asthma, cancer, diabetes, hypertension and hyperlipidemia presents with difficulty breathing. History of Present Illness: Patient is a 87-year-old female presents with difficulty breathing. Patient denies any history of asthma or COPD however she does report having a previous history of smoking. Patient is a poor historian. She states that she's been having trouble breathing for several weeks now. She called EMS because she couldn't sleep secondary to difficulty in breathing. Denies any constitutional symptoms. The ROS documented in this emergency department record has been reviewed and confirmed by me. Those systems with pertinent positive or negative responses have been documented in the HPI. All other systems are other negative and/or noncontributory. - Related Data Home Medications Medication Instructions Recorded Confirmed Docusate [Colace] 100 mg PO QAM 02/14/14 09/11/17 Fluticasone/Salmeterol [Advair 1 puff INHALATION RT-BID 02/14/14 09/11/17 250-50 Diskus] Ipratropium-Albuterol Nebulize 3 ml INHALATION RT-QID PRN 02/14/14 09/11/17 [Duoneb 0.5 mg-3 mg/3 ml Soln] Levothyroxine Sodium [Synthroid] 125 mcg PO DAILY 02/14/14 09/11/17 Montelukast [Singulair] 10 mg PO HS 02/14/14 09/11/17 Ramipril [Altace] 10 mg PO QAM 02/14/14 09/11/17 Simvastatin [Zocor] 40 mg PO HS 02/14/14 09/11/17 Solifenacin Succinate [Vesicare] 5 mg PO QAM 02/14/14 09/11/17 Alendronate Sodium [Fosamax] 70 mg PO MO 08/04/14 09/11/17 Acetaminophen [Tylenol] 325 - 650 mg PO Q4H PRN 08/05/14 09/11/17 Albuterol Inhaler [Ventolin Hfa 1 - 2 puff INHALATION RT-Q6H PRN 08/05/14 Inhaler] Aricept 23mg 23 mg PO DAILY 05/15/16 09/11/17 LORazepam [Ativan] 0.5 mg PO TID PRN 05/15/16 09/11/17 Vilazodone HCl [Viibryd] 20 mg PO DAILY 05/15/16 09/11/17 Omeprazole [PriLOSEC] 10 mg PO QAM 07/03/16 09/11/17 Hydrochlorothiazide 12.5 mg PO DAILY 09/11/17 09/11/17 Nitrofurantoin Macrocrystal 50 mg PO DAILY 09/11/17 09/11/17 [Macrodantin] Prevagen Extra Strength 1 tab PO DAILY 09/11/17 09/11/17 Previous Rx's Medication Instructions Recorded Isosorbide Mononitrate ER [Imdur] 30 mg PO DAILY #30 tab.er.24h 09/11/17 predniSONE 20 mg PO DAILY 5 Days #5 tab 09/11/17 Allergies Allergy/AdvReac Type Severity Reaction Status Date / Time steroid AdvReac Confusion Uncoded 09/11/17 01:28 Review of Systems ROS Statement: Those systems with pertinent positive or pertinent negative responses have been documented in the HPI. ROS Other: All systems not noted in ROS Statement are negative. Past Medical History Past Medical History: Asthma, Cancer, Diabetes Mellitus, GERD/Reflux, Hyperlipidemia, Hypertension, Memory Impairment, Thyroid Disorder Additional Past Medical History / Comment(s): hypoglycemia, shingles long time ago; skin ca History of Any Multi-Drug Resistant Organisms: None Reported Past Surgical History: No Surgical Hx Reported Additional Past Surgical History / Comment(s): rectocele repair, cataracts Past Anesthesia/Blood Transfusion Reactions: No Reported Reaction Past Psychological History: No Psychological Hx Reported Smoking Status: Former smoker Past Alcohol Use History: None Reported Past Drug Use History: None Reported - Past Family History Father Family Medical History: Myocardial Infarction ([place]) Mother History Unknown: Yes General Exam - General Exam Comments Initial Comments: PHYSICAL EXAM: General Impression: Alert and oriented x3, not in acute distress HEENT: Normocephalic atraumatic, extra-ocular movements intact, pupils equal and reactive to light bilaterally, mucous membranes moist. Cardiovascular: Heart regular rate and rhythm, S1&S2 audible, no murmurs, rubs or gallops Chest: Lungs clear to auscultation bilaterally, no rhonchi, no wheeze, no rales Abdomen: Bowel sounds present, abdomen soft, non-tender, non-distended, no organomegaly Musculoskeletal: Pulses present and equal in all extremities, no peripheral edema Motor: Power 5/5 bilaterally, no focal deficits noted Neurological: CN II-XII grossly intact, no focal motor or sensory deficits noted Skin: Intact with no visualized rashes Psych: Normal affect and mood Limitations: no limitations Course Vital Signs 09/11/17 09/11/17 09/11/17 01:24 02:30 03:28 Temperature 97.8 F Pulse Rate 50 L 54 L Pulse Rate [ Left Supine Pulse Oximetery ] Respiratory 20 16 16 Rate Blood Pressure 168/74 170/69 Blood Pressure [Left Arm Supine] O2 Sat by Pulse 96 99 Oximetry 09/11/17 03:56 Temperature 98.3 F Pulse Rate Pulse Rate [ 51 L Left Supine Pulse Oximetery ] Respiratory 22 Rate Blood Pressure Blood Pressure 171/70 [Left Arm Supine] O2 Sat by Pulse 96 Oximetry Medical Decision Making - Medical Decision Making ED course: He-year-old female past medical history of diabetes, reflux , dyslipidemia, hypertension presents with difficulty breathing. Vital signs upon arrival are within acceptable limits. Patient mildly bradycardic with a heart rate of 50. She is however hemodynamically stable. Patient is a poor historian however, she is able to answer questions appropriately. Chart review was performed showing the patient has history of COPD. EKG was obtained on be benign.Return evaluation obtained. CBC is unremarkable. Coag panel unremarkable. Metabolic panel shows sodium of 138 there is glucose 111. Cardiac enzymes shows troponin of 0.05. Chart review was performed. It appears that patient had an echocardiogram performed approximately one month ago showing ejection fraction of 55%. i was made on diastolic function.. CT angios the chest was performed approximately one week ago and found to be negative for pulmonary emboli. Patient is not hypoxic or tachycardic. This point doubt pulmonary emboli. We'll withhold repeat CT angios imaging. Discussed patient case with Dr. Robertson. Patient would benefit from admission for serial troponins and further cardiac workup. Clinical presentation is suspicious for congestive heart failure. EKG Interpretation: A 12 lead EKG was obtained. It was interpreted by myself and attending physician. There is a P wave before every QRS complex. Rate is 47. Rhythm is sinus bradycardia with first-degree AV block, CO interval 222, QRS 102, QTC 424. QT is not prolonged. No ST segment depression or elevation. This EKG was compared to a previous EKG that was obtained on 09/02/2017 and showed no significant change. Overall, this EKG is unremarkable - Lab Data Result diagrams: 09/11/17 01:40 09/11/17 01:40 Lab Results 09/11/17 09/11/17 09/11/17 Range/Units 01:40 01:40 01:40 WBC 6.4 (3.8-10.6) k/uL RBC 3.85 (3.80-5.40) m/uL Hgb 11.7 (11.4-16.0) gm/dL Hct 35.9 (34.0-46.0) % MCV 93.1 (80.0-100.0) fL MCH 30.4 (25.0-35.0) pg MCHC 32.7 (31.0-37.0) g/dL RDW 14.8 (11.5-15.5) % Plt Count 209 (150-450) k/uL Neutrophils % 57 % Lymphocytes % 28 % Monocytes % 10 % Eosinophils % 2 % Basophils % 0 % Neutrophils # 3.7 (1.3-7.7) k/uL Lymphocytes # 1.8 (1.0-4.8) k/uL Monocytes # 0.6 (0-1.0) k/uL Eosinophils # 0.2 (0-0.7) k/uL Basophils # 0.0 (0-0.2) k/uL PT (9.0-12.0) sec INR (<1.2) APTT (22.0-30.0) sec Sodium 130 L (137-145) mmol/L Potassium 4.5 (3.5-5.1) mmol/L Chloride 95 L (98-107) mmol/L Carbon Dioxide 26 (22-30) mmol/L Anion Gap 9 mmol/L BUN 19 H (7-17) mg/dL Creatinine 0.90 (0.52-1.04) mg/dL Est GFR (CKD-EPI)AfAm 66 (>60 ml/min/1.73 sqM) Est GFR (CKD-EPI)NonAf 58 (>60 ml/min/1.73 sqM) Glucose 111 H (74-99) mg/dL POC Glucose (mg/dL) (75-99) mg/dL POC Glu [employer] ID Estimated [address] Glu mg/dL Hemoglobin A1c (4.0-6.0) % Calcium 9.3 (8.4-10.2) mg/dL Magnesium 2.1 (1.6-2.3) mg/dL Total Bilirubin 0.4 (0.2-1.3) mg/dL AST 28 (14-36) U/L ALT 37 (9-52) U/L Alkaline Phosphatase 75 (38-126) U/L Total Creatine Kinase 105 (30-135) U/L CK-MB (CK-2) 0.9 (0.0-2.4) ng/mL CK-MB (CK-2) Rel Index 0.9 Troponin I 0.050 H* (0.000-0.034) ng/mL NT-Pro-B Natriuret Pep pg/mL Total Protein 6.1 L (6.3-8.2) g/dL Albumin 3.8 (3.5-5.0) g/dL 09/11/17 09/11/17 09/11/17 Range/Units 01:40 01:40 06:07 WBC (3.8-10.6) k/uL RBC (3.80-5.40) m/uL Hgb (11.4-16.0) gm/dL Hct (34.0-46.0) % MCV (80.0-100.0) fL MCH (25.0-35.0) pg MCHC (31.0-37.0) g/dL RDW (11.5-15.5) % Plt Count (150-450) k/uL Neutrophils % % Lymphocytes % % Monocytes % % Eosinophils % % Basophils % % Neutrophils # (1.3-7.7) k/uL Lymphocytes # (1.0-4.8) k/uL Monocytes # (0-1.0) k/uL Eosinophils # (0-0.7) k/uL Basophils # (0-0.2) k/uL PT 10.0 (9.0-12.0) sec INR 1.0 (<1.2) APTT 24.0 (22.0-30.0) sec Sodium (137-145) mmol/L Potassium (3.5-5.1) mmol/L Chloride (98-107) mmol/L Carbon Dioxide (22-30) mmol/L Anion Gap mmol/L BUN (7-17) mg/dL Creatinine (0.52-1.04) mg/dL Est GFR (CKD-EPI)AfAm (>60 ml/min/1.73 sqM) Est GFR (CKD-EPI)NonAf (>60 ml/min/1.73 sqM) Glucose (74-99) mg/dL POC Glucose (mg/dL) 115 H (75-99) mg/dL POC Glu [employer] ID [address] Glu mg/dL Hemoglobin A1c (4.0-6.0) % Calcium (8.4-10.2) mg/dL Magnesium (1.6-2.3) mg/dL Total Bilirubin (0.2-1.3) mg/dL AST (14-36) U/L ALT (9-52) U/L Alkaline Phosphatase (38-126) U/L Total Creatine Kinase (30-135) U/L CK-MB (CK-2) (0.0-2.4) ng/mL CK-MB (CK-2) Rel Index Troponin I (0.000-0.034) ng/mL NT-Pro-B Natriuret Pep 45 pg/mL Total Protein (6.3-8.2) g/dL Albumin (3.5-5.0) g/dL 09/11/17 09/11/17 Range/Units 06:41 06:41 WBC (3.8-10.6) k/uL RBC (3.80-5.40) m/uL Hgb (11.4-16.0) gm/dL Hct (34.0-46.0) % MCV (80.0-100.0) fL MCH (25.0-35.0) pg MCHC (31.0-37.0) g/dL RDW (11.5-15.5) % Plt Count (150-450) k/uL Neutrophils % % Lymphocytes % % Monocytes % % Eosinophils % % Basophils % % Neutrophils # (1.3-7.7) k/uL Lymphocytes # (1.0-4.8) k/uL Monocytes # (0-1.0) k/uL Eosinophils # (0-0.7) k/uL Basophils # (0-0.2) k/uL PT (9.0-12.0) sec INR (<1.2) APTT (22.0-30.0) sec Sodium (137-145) mmol/L Potassium (3.5-5.1) mmol/L Chloride (98-107) mmol/L Carbon Dioxide (22-30) mmol/L Anion Gap mmol/L BUN (7-17) mg/dL Creatinine (0.52-1.04) mg/dL Est GFR (CKD-EPI)AfAm (>60 ml/min/1.73 sqM) Est GFR (CKD-EPI)NonAf (>60 ml/min/1.73 sqM) Glucose (74-99) mg/dL POC Glucose (mg/dL) (75-99) mg/dL POC Glu [employer] ID Est[address] Glu mg/dL 131 Hemoglobin A1c 6.2 H (4.0-6.0) % Calcium (8.4-10.2) mg/dL Magnesium (1.6-2.3) mg/dL Total Bilirubin (0.2-1.3) mg/dL AST (14-36) U/L ALT (9-52) U/L Alkaline Phosphatase (38-126) U/L Total Creatine Kinase 107 (30-135) U/L CK-MB (CK-2) 0.9 (0.0-2.4) ng/mL CK-MB (CK-2) Rel Index 0.8 Troponin I 0.035 H* (0.000-0.034) ng/mL NT-Pro-B Natriuret Pep pg/mL Total Protein (6.3-8.2) g/dL Albumin (3.5-5.0) g/dL Disposition Clinical Impression: Congestive heart failure Disposition: ADMITTED IP TO THIS [facility] Condition: Fair Time of Disposition: 03:42
[2017-09-11 02:34] LABS: Basophils % (A) 0 %; Eosinophils # (A) 0.2 k/uL (0-0.7); Eosinophils % (A) 2 %; HCT 35.9 % (34.0-46.0); HGB 11.7 gm/dL (11.4-16.0); Lymphocytes # (A) 1.8 k/uL (1.0-4.8); Lymphocytes % (A) 28 %; MCH 30.4 pg (25.0-35.0); MCHC 32.7 g/dL (31.0-37.0); MCV 93.1 fL (80.0-100.0); Mean Platelet Volume 6.9; Monocytes # (A) 0.6 k/uL (0-1.0); Monocytes % (A) 10 %; Neutrophils # (A) 3.7 k/uL (1.3-7.7); Neutrophils % (A) 57 %; Platelet Count 209 k/uL (150-450); RBC 3.85 m/uL (3.80-5.40); RDW 14.8 % (11.5-15.5); WBC 6.4 k/uL (3.8-10.6)
[2017-09-11 02:48] LABS: Albumin 3.8 g/dL (3.5-5.0); Calcium 9.3 mg/dL (8.4-10.2); Magnesium 2.1 mg/dL (1.6-2.3); Potassium 4.5 mmol/L (3.5-5.1); Total Bilirubin 0.4 mg/dL (0.2-1.3); Total Protein 6.1 g/dL (6.3-8.2)
--- NOTE | 2017-09-11 02:55 | XR ---
EXAM: XR Chest, 2 Views CLINICAL HISTORY: Pain TECHNIQUE: Frontal and lateral views of the chest. COMPARISON: No relevant prior studies available. FINDINGS: Lungs: Opacity in the medial lung base is nonspecific and may represent atelectasis or an infectious or inflammatory process. Bandlike densities in the left lower lung are compatible with atelectasis or scar. Pleural space: Unremarkable. No pneumothorax. Heart: Borderline sized cardiomediastinal silhouette. Mediastinum: See above. Bones/joints: No acute osseous abnormality. Vasculature: Tortuosity and/or ectasia of the thoracic aorta. Tubes, lines and devices: Telemetry leads overlie the patient. IMPRESSION: Opacity in the medial lung base is nonspecific and may represent atelectasis or an infectious or inflammatory process.
[2017-09-11 03:08] LABS: Creatine Kinase MB 0.9 ng/mL (0.0-2.4)
[2017-09-11 03:14] LABS: Troponin I 0.05 ng/mL (0.000-0.034)
[2017-09-11] MEDS ORDERED: NALOXONE 0.4 MG/ML 1 ML VIAL IV PRN (03:35)
[2017-09-11] MEDS ORDERED: NITROGLYCERIN SL TABS 0.4 MG TAB SUBLINGUAL PRN (03:36)
[2017-09-11] MEDS ORDERED: ASPIRIN 81 MG PO STA (03:39)
[2017-09-11 04:53] VITALS: BMI 31.6
[2017-09-11 06:08] LABS: Glucose,Whole Blood 115 mg/dL (75-99)
[2017-09-11 07:31] LABS: Creatine Kinase MB 0.9 ng/mL (0.0-2.4)
[2017-09-11 07:32] LABS: Troponin I 0.035 ng/mL (0.000-0.034)
[2017-09-11 08:00] VITALS: RESP 18
--- NOTE | 2017-09-11 09:41 | P.CRDCN ---
History of Present Illness Consult date: 09/11/17 Requesting physician: Jose M Robertson Consult reason: shortness of breath Chief complaint: Shortness of breath History of present illness: This is a pleasant 87-year-old female who resides at [facility]. She does have a history of hypertension, diabetes, hyperlipidemia, nonsmoker, history of asthma. She presents to the hospital with symptoms of shortness of breath. Upon review of the prior records, it appears that the patient has had multiple visits to the hospital back to April of last year with symptoms of shortness of breath. Patient had an echocardiogram with Doppler study performed in July of this year which revealed a normal left ventricular systolic function. Chest x-ray on admission revealed obesity in the medial lung base nonspecific may represent atelectasis or infectious or inflammatory process. CT of the chest was performed which did not reveal evidence of pulmonary embolism. Cardiomegaly. Pulmonary infiltrates and fibrotic changes unchanged from prior. Stable aneurysm of the ascending aorta. Blood pressure on arrival here 168/70 with a heart rate in the 50s, 96% on room air. Blood pressure this morning 157/70, heart rate in the 50s, 93% on room air. CBC is normal, sodium 1:30, potassium 4.5, BUN 19, creatinine 0.9. Mag 2.1. Troponins 0.050, 0.035. At the time of my examination this morning, patient states that she still feels mildly short of breath, she denies any chest discomfort. Past Medical History Past Medical History: Asthma, Cancer, Diabetes Mellitus, GERD/Reflux, Hyperlipidemia, Hypertension, Memory Impairment, Thyroid Disorder Additional Past Medical History / Comment(s): hypoglycemia, shingles long time ago; skin ca History of Any Multi-Drug Resistant Organisms: None Reported Past Surgical History: No Surgical Hx Reported, Heart Catheterization Additional Past Surgical History / Comment(s): rectocele repair, cataracts Past Anesthesia/Blood Transfusion Reactions: No Reported Reaction Past Psychological History: No Psychological Hx Reported Smoking Status: Former smoker Past Alcohol Use History: None Reported Past Drug Use History: None Reported - Past Family History Father Family Medical History: Myocardial Infarction ([place]) Mother History Unknown: Yes Medications and Allergies Home Medications Medication Instructions Recorded Confirmed Type Docusate [Colace] 100 mg PO QAM 02/14/14 09/11/17 History Fluticasone/Salmeterol [Advair 1 puff INHALATION RT-BID 02/14/14 09/11/17 History 250-50 Diskus] Ipratropium-Albuterol Nebulize 3 ml INHALATION RT-QID PRN 02/14/14 09/11/17 History [Duoneb 0.5 mg-3 mg/3 ml Soln] Levothyroxine Sodium [Synthroid] 125 mcg PO DAILY 02/14/14 09/11/17 History Montelukast [Singulair] 10 mg PO HS 02/14/14 09/11/17 History Ramipril [Altace] 10 mg PO QAM 02/14/14 09/11/17 History Simvastatin [Zocor] 40 mg PO HS 02/14/14 09/11/17 History Solifenacin Succinate [Vesicare] 5 mg PO QAM 02/14/14 09/11/17 History Alendronate Sodium [Fosamax] 70 mg PO MO 08/04/14 09/11/17 History Acetaminophen [Tylenol] 325 - 650 mg PO Q4H PRN 08/05/14 09/11/17 History Albuterol Inhaler [Ventolin Hfa 1 - 2 puff INHALATION RT-Q6H PRN 08/05/14 History Inhaler] Aricept 23mg 23 mg PO DAILY 05/15/16 09/11/17 History LORazepam [Ativan] 0.5 mg PO TID PRN 05/15/16 09/11/17 History Vilazodone HCl [Viibryd] 20 mg PO DAILY 05/15/16 09/11/17 History Omeprazole [PriLOSEC] 10 mg PO QAM 07/03/16 09/11/17 History Hydrochlorothiazide 12.5 mg PO DAILY 09/11/17 09/11/17 History Nitrofurantoin Macrocrystal 50 mg PO DAILY 09/11/17 09/11/17 History [Macrodantin] Prevagen Extra Strength 1 tab PO DAILY 09/11/17 09/11/17 History Allergies Allergy/AdvReac Type Severity Reaction Status Date / Time steroid AdvReac Confusion Uncoded 09/11/17 01:28 Physical Exam Vitals: Vital Signs Temp Pulse Pulse Pulse Resp BP BP 09/11/17 07:44 97.4 F L 53 L 53 L 18 157/77 07/25/18 06:18 09/11/17 03:56 98.3 F 51 L 22 171/70 09/11/17 03:28 54 L 16 170/69 09/11/17 02:30 16 09/11/17 01:24 97.8 F 50 L 20 168/74 Pulse Ox 09/11/17 07:44 93 L 09/11/17 06:18 96 09/11/17 03:56 96 09/11/17 03:28 99 09/11/17 02:30 09/11/17 01:24 96 Intake and Output 09/10/17 09/11/17 09/11/17 22:59 06:59 14:59 Other: # Voids 2 Weight 84.6 kg PHYSICAL EXAMINATION: GENERAL: 87-year-old female in no acute distress at the time of my examination HEENT: Head is atraumatic, normocephalic. Pupils equal, round. Sclera anicteric. Conjunctiva are clear. Mucous membranes of the mouth are moist. Neck is supple. There is no elevated jugular venous pressure.] bruit is heard. HEART EXAMINATION: Heart S1, S2 normal. No murmur or gallop heard. CHEST EXAMINATION: Lungs are clear to auscultation and precussion. No chest wall tenderness is noted on palpation or with deep breathing. ABDOMEN: Soft, nontender. Bowel sounds are heard. No organomegaly noted. EXTREMITIES: 2+ peripheral pulses with no evidence of peripheral edema and no calf tenderness noted. NEUROLOGIC patient is awake, alert and oriented ?-3. . Results 09/11/17 01:40 09/11/17 01:40 Cardiac Enzymes 09/11/17 09/11/17 09/11/17 Range/Units 01:40 01:40 06:41 AST 28 (14-36) U/L CK-MB (CK-2) 0.9 0.9 (0.0-2.4) ng/mL Troponin I 0.050 H* 0.035 H* (0.000-0.034) ng/mL Coagulation 09/11/17 Range/Units 01:40 PT 10.0 (9.0-12.0) sec APTT 24.0 (22.0-30.0) sec CBC 09/11/17 Range/Units 01:40 WBC 6.4 (3.8-10.6) k/uL RBC 3.85 (3.80-5.40) m/uL Hgb 11.7 (11.4-16.0) gm/dL Hct 35.9 (34.0-46.0) % Plt Count 209 (150-450) k/uL Comprehensive Metabolic Panel 09/11/17 Range/Units 01:40 Sodium 130 L (137-145) mmol/L Potassium 4.5 (3.5-5.1) mmol/L Chloride 95 L (98-107) mmol/L Carbon Dioxide 26 (22-30) mmol/L BUN 19 H (7-17) mg/dL Creatinine 0.90 (0.52-1.04) mg/dL Glucose 111 H (74-99) mg/dL Calcium 9.3 (8.4-10.2) mg/dL AST 28 (14-36) U/L ALT 37 (9-52) U/L Alkaline Phosphatase 75 (38-126) U/L Total Protein 6.1 L (6.3-8.2) g/dL Albumin 3.8 (3.5-5.0) g/dL Current Medications Generic Name Dose Route Start Last Admin Trade Name Freq PRN Reason Stop Dose Admin Aspirin 325 mg 09/12/17 09:00 Aspirin PO DAILY STELLA Naloxone HCl 0.2 mg 09/11/17 03:35 Narcan IV Q2M PRN Opioid Reversal Nitroglycerin 0.4 mg 09/11/17 03:36 Nitrostat SUBLINGUAL Q5M PRN Chest Pain Intake and Output 09/10/17 09/11/17 09/11/17 22:59 06:59 14:59 Other: # Voids 2 Weight 84.6 kg 09/11/17 01:40 09/11/17 01:40 EKG Interpretations (text) EKG shows a sinus bradycardia with first-degree AV block and nonspecific ST-T wave changes Assessment and Plan Plan: Assessment and plan #1 symptoms of shortness of breath, exertional and nonexertional, intermittent. Atypical chest pain. Chest x-ray does not reveal any acute findings. Echo performed in July of this year revealed normal left ventricular systolic function. Troponins 0.050, 0.035. EKG shows a sinus bradycardia with first- degree AV block and nonspecific ST-T wave changes #2 hypertension #3 asthma #4 diabetes #5 hyperlipidemia Plan symptoms of shortness of breath may be secondary to underlying coronary artery disease, at this time we will recommend to maximize her medical therapy, add nitrates to her medication regime. No beta [place] at this time because of bradycardia. Optimize blood pressure control. We will resume the patient's statin and WINTER inhibitor. Further recommendation to follow. DNP note has been reviewed, I agree with a documented findings and plan of care. Patient was seen and examined.
--- NOTE | 2017-09-11 10:13 | P.PN ---
Progress Note - Text This is an addendum to the dictated cardiology consultation. The patient presents with symptoms of dyspnea, not always activity related going on for a while. She has fair episode of chest discomfort that is not associated with the dyspnea. She denies any significant arrhythmia ,peripheral edema. Her lab data revealed mild troponin elevation. I discussed with the patient the findings have discussed with her the option of maximizing medical therapy versus the possibility of aggressive intervention. I have explained to her the results. She is not interested in any aggressive workup at this time. I would add to her regimen nitrates, increase her level of activity and depending on her progress further recommendations will be made. Thank you for this consult we will follow with you.
[2017-09-11] MEDS ORDERED: HYDROCHLOROTHIAZIDE 25 MG TAB PO SCH (10:15)
[2017-09-11 11:01] LABS: Glucose,Whole Blood 116 mg/dL (75-99)
[2017-09-11] MEDS ORDERED: LORazepam 0.5 MG TAB PO PRN (11:15)
[2017-09-11] MEDS ORDERED: IPRATROPIUM-ALBUTEROL 3 ML NEB INHALATION PRN (11:15)
--- NOTE | 2017-09-11 11:26 | P.HPIM ---
History of Present Illness 87-year-old female on presented the emergency room with shortness of breath. Patient has been admitted several times for the same. Patient is to be evaluated by cardiology for an increase in troponin and all pulmonology Review of Systems Constitutional: Reports fatigue Respiratory: Reports dyspnea Past Medical History Past Medical History: Asthma, Cancer, Diabetes Mellitus, GERD/Reflux, Hyperlipidemia, Hypertension, Memory Impairment, Thyroid Disorder Additional Past Medical History / Comment(s): hypoglycemia, shingles long time ago; skin ca History of Any Multi-Drug Resistant Organisms: None Reported Past Surgical History: No Surgical Hx Reported, Heart Catheterization Additional Past Surgical History / Comment(s): rectocele repair, cataracts Past Anesthesia/Blood Transfusion Reactions: No Reported Reaction Past Psychological History: No Psychological Hx Reported Smoking Status: Former smoker Past Alcohol Use History: None Reported Past Drug Use History: None Reported - Past Family History Father Family Medical History: Myocardial Infarction ([place]) Mother History Unknown: Yes Medications and Allergies Home Medications Medication Instructions Recorded Confirmed Type Docusate [Colace] 100 mg PO QAM 02/14/14 09/11/17 History Fluticasone/Salmeterol [Advair 1 puff INHALATION RT-BID 02/14/14 09/11/17 History 250-50 Diskus] Ipratropium-Albuterol Nebulize 3 ml INHALATION RT-QID PRN 02/14/14 09/11/17 History [Duoneb 0.5 mg-3 mg/3 ml Soln] Levothyroxine Sodium [Synthroid] 125 mcg PO DAILY 02/14/14 09/11/17 History Montelukast [Singulair] 10 mg PO HS 02/14/14 09/11/17 History Ramipril [Altace] 10 mg PO QAM 02/14/14 09/11/17 History Simvastatin [Zocor] 40 mg PO HS 02/14/14 09/11/17 History Solifenacin Succinate [Vesicare] 5 mg PO QAM 02/14/14 09/11/17 History Alendronate Sodium [Fosamax] 70 mg PO MO 08/04/14 09/11/17 History Acetaminophen [Tylenol] 325 - 650 mg PO Q4H PRN 08/05/14 09/11/17 History Albuterol Inhaler [Ventolin Hfa 1 - 2 puff INHALATION RT-Q6H PRN 08/05/14 History Inhaler] Aricept 23mg 23 mg PO DAILY 05/15/16 09/11/17 History LORazepam [Ativan] 0.5 mg PO TID PRN 05/15/16 09/11/17 History Vilazodone HCl [Viibryd] 20 mg PO DAILY 05/15/16 09/11/17 History Omeprazole [PriLOSEC] 10 mg PO QAM 07/03/16 09/11/17 History Hydrochlorothiazide 12.5 mg PO DAILY 09/11/17 09/11/17 History Nitrofurantoin Macrocrystal 50 mg PO DAILY 09/11/17 09/11/17 History [Macrodantin] Prevagen Extra Strength 1 tab PO DAILY 09/11/17 09/11/17 History Allergies Allergy/AdvReac Type Severity Reaction Status Date / Time steroid AdvReac Confusion Uncoded 09/11/17 01:28 Physical Exam Vitals: Vital Signs Temp Pulse Pulse Pulse Resp BP BP 09/11/17 07:44 97.4 F L 53 L 53 L 18 157/77 09/11/17 06:18 09/11/17 03:56 98.3 F 51 L 22 171/70 09/11/17 03:28 54 L 16 170/69 09/11/17 02:30 16 09/11/17 01:24 97.8 F 50 L 20 168/74 Pulse Ox 09/11/17 07:44 93 L 09/11/17 06:18 96 09/11/17 03:56 96 09/11/17 03:28 99 09/11/17 02:30 09/11/17 01:24 96 Intake and Output 09/10/17 09/11/17 09/11/17 22:59 06:59 14:59 Other: # Voids 2 Weight 84.6 kg - Constitutional General appearance: mild distress, obese - EENT Eyes: PERRLA Ears: bilateral: normal - Neck Neck: normal ROM - Respiratory Respiratory: bilateral: CTA - Cardiovascular Rhythm: regular - Gastrointestinal General gastrointestinal: soft - Integumentary Integumentary: normal - Neurologic Neurologic: CNII-XII intact - Musculoskeletal Musculoskeletal: generalized weakness - Psychiatric Psychiatric: A&O x's 3, appropriate affect, intact judgment & insight Results CBC & Chem 7: 09/11/17 01:40 09/11/17 01:40 Labs: Abnormal Lab Results - Last 24 Hours (Table) 09/11/17 09/11/17 09/11/17 Range/Units 01:40 01:40 06:07 Sodium 130 L (137-145) mmol/L Chloride 95 L (98-107) mmol/L BUN 19 H (7-17) mg/dL Glucose 111 H (74-99) mg/dL POC Glucose (mg/dL) 115 H (75-99) mg/dL Troponin I 0.050 H* (0.000-0.034) ng/mL Total Protein 6.1 L (6.3-8.2) g/dL 09/11/17 09/11/17 Range/Units 06:41 10:59 Sodium (137-145) mmol/L Chloride (98-107) mmol/L BUN (7-17) mg/dL Glucose (74-99) mg/dL POC Glucose (mg/dL) 116 H (75-99) mg/dL Troponin I 0.035 H* (0.000-0.034) ng/mL Total Protein (6.3-8.2) g/dL Chest x-ray: report reviewed Thrombosis Risk Factor Assmnt - Choose All That Apply Each Factor Represents 1 point: Heart failure (<1month), Obesity (BMI >25) Each Risk Factor Represents 3 Points: Age 75 years or older Thrombosis Risk Factor Assessment Total Risk Factor Score: 5 Thrombosis Risk Factor Assessment Level: High Risk Assessment and Plan Plan: Assessment Shortness of breath acute on chronic secondary to the congestive heart failure diastolic normal systolic History of asthma Diabetes type 2 GERD Hyperlipidemia Memory impairment hypothyroidism Plan Cardiology consultation regarding elevated troponins Pulmonology consultation
--- NOTE | 2017-09-11 11:55 | P.CNPUL ---
History of Present Illness Consult date: 09/11/17 Reason for consult: dyspnea, cough, COPD, hypoxemia, abnormal CXR/CT Chief complaint: Shortness of breath History of present illness: Pulmonary consult dated 09/11/2017 This is an 87-year-old female sees Dr. Jose M Robertson. She apparently has a history of asthma/COPD, cancer, diabetes, hypertension and hyperlipidemia. She presented to the emergency department with complaints of difficulty breathing. Not a particularly good historian. The ER note mentions that she is a nonsmoker but in fact she is a smoker. She likely has some underlying COPD. The severity of which is not known as I do not have her office notes. She apparently has been having difficulty breathing for some time prior to admission. She denies any cough or phlegm production. There is no fever or chills. She denies any chest pain or chest discomfort. No nausea vomiting or diarrhea. Chest x-rays most consistent with atelectasis rather than infiltrate in my opinion. Her ER diagnosis was that of heart failure. When I spoke to Dr. Robertson's PA, I thought it was combination of COPD as well as some mild heart failure. The patient was adamant about being discharged home and could be discharged home on this small prednisone burst and taper and a short course of antibiotics. Review of Systems A 12 point review of systems is only positive for shortness of breath. She denies anything to suggest an infection such as fever chills cough phlegm production or coughing up blood. Past Medical History Past Medical History: Asthma, Cancer, Diabetes Mellitus, GERD/Reflux, Hyperlipidemia, Hypertension, Memory Impairment, Thyroid Disorder Additional Past Medical History / Comment(s): hypoglycemia, shingles long time ago; skin ca History of Any Multi-Drug Resistant Organisms: None Reported Past Surgical History: No Surgical Hx Reported, Heart Catheterization Additional Past Surgical History / Comment(s): rectocele repair, cataracts Past Anesthesia/Blood Transfusion Reactions: No Reported Reaction Past Psychological History: No Psychological Hx Reported Smoking Status: Former smoker Past Alcohol Use History: None Reported Past Drug Use History: None Reported - Past Family History Father Family Medical History: Myocardial Infarction ([place]) Mother History Unknown: Yes Medications and Allergies Home Medications Medication Instructions Recorded Confirmed Type Docusate [Colace] 100 mg PO QAM 02/14/14 09/11/17 History Fluticasone/Salmeterol [Advair 1 puff INHALATION RT-BID 02/14/14 09/11/17 History 250-50 Diskus] Ipratropium-Albuterol Nebulize 3 ml INHALATION RT-QID PRN 02/14/14 09/11/17 History [Duoneb 0.5 mg-3 mg/3 ml Soln] Levothyroxine Sodium [Synthroid] 125 mcg PO DAILY 02/14/14 09/11/17 History Montelukast [Singulair] 10 mg PO HS 02/14/14 09/11/17 History Ramipril [Altace] 10 mg PO QAM 02/14/14 09/11/17 History Simvastatin [Zocor] 40 mg PO HS 02/14/14 09/11/17 History Solifenacin Succinate [Vesicare] 5 mg PO QAM 02/14/14 09/11/17 History Alendronate Sodium [Fosamax] 70 mg PO MO 08/04/14 09/11/17 History Acetaminophen [Tylenol] 325 - 650 mg PO Q4H PRN 08/05/14 09/11/17 History Albuterol Inhaler [Ventolin Hfa 1 - 2 puff INHALATION RT-Q6H PRN 08/05/14 History Inhaler] Aricept 23mg 23 mg PO DAILY 05/15/16 09/11/17 History LORazepam [Ativan] 0.5 mg PO TID PRN 05/15/16 09/11/17 History Vilazodone HCl [Viibryd] 20 mg PO DAILY 05/15/16 09/11/17 History Omeprazole [PriLOSEC] 10 mg PO QAM 07/03/16 09/11/17 History Hydrochlorothiazide 12.5 mg PO DAILY 09/11/17 09/11/17 History Nitrofurantoin Macrocrystal 50 mg PO DAILY 09/11/17 09/11/17 History [Macrodantin] Prevagen Extra Strength 1 tab PO DAILY 09/11/17 09/11/17 History Allergies Allergy/AdvReac Type Severity Reaction Status Date / Time steroid AdvReac Confusion Uncoded 09/11/17 01:28 Physical Exam Osteopathic Statement: *. No significant issues noted on an osteopathic structural exam other than those noted in the History and Physical/Consult. Vitals: Vital Signs Temp Pulse Pulse Pulse Resp BP BP 09/11/17 07:44 97.4 F L 53 L 53 L 18 157/77 09/11/17 06:18 09/11/17 03:56 98.3 F 51 L 22 171/70 09/11/17 03:28 54 L 16 170/69 09/11/17 02:30 16 09/11/17 01:24 97.8 F 50 L 20 168/74 Pulse Ox 09/11/17 07:44 93 L 09/11/17 06:18 96 09/11/17 03:56 96 09/11/17 03:28 99 09/11/17 02:30 09/11/17 01:24 96 Intake and Output 09/10/17 09/11/17 09/11/17 22:59 06:59 14:59 Other: # Voids 2 Weight 84.6 kg No acute distress, oriented 3. The patient does not require any supplemental oxygen and doesn't appear to be in any respiratory distress. HEENT examination is grossly unremarkable. Mucous membranes are moist. No oral lesions. Neck supple. Full range of motion. No adenopathy thyromegaly or neck vein distention. Cardiovascular examination reveals regular rhythm rate. S1-S2 normal. No S3 or S4. No discernible murmur noted. Heart sounds are distant. Lungs reveal a few scattered rhonchi. There is some minimal crackles. No wheezes. Breath sounds are diminished throughout. There are equal bilaterally. Abdomen soft bowel sounds are heard. No masses or tenderness. Extremities are intact. No cyanosis or clubbing. Minimal edema. Skin is without rash or lesion. Neurologic examination is brief but nonfocal. Results - Laboratory Findings CBC and BMP: 09/11/17 01:40 09/11/17 01:40 PT/INR, D-dimer PT 10.0 sec (9.0-12.0) 09/11/17 01:40 INR 1.0 (<1.2) 09/11/17 01:40 Abnormal lab findings: Abnormal Labs 09/11/17 09/11/17 09/11/17 01:40 01:40 06:07 Sodium 130 L Chloride 95 L BUN 19 H Glucose 111 H POC Glucose (mg/dL) 115 H Troponin I 0.050 H* Total Protein 6.1 L 09/11/17 09/11/17 06:41 10:59 Sodium Chloride BUN Glucose POC Glucose (mg/dL) 116 H Troponin I 0.035 H* Total Protein - Diagnostic Findings Chest x-ray: report reviewed (Labs x-rays and medications are all reviewed.), image reviewed Assessment and Plan Assessment: Assessment Shortness of breath, which is mostly resolved, likely secondary to a mild COPD exacerbation and mild fluid overload. The patient is adamant about being discharged home. I believe the chest x-ray changes are likely reflecting atelectasis and not infiltrate. The patient really is not exhibiting any signs or symptoms of active infection, i.e. pneumonia. History of COPD from previous tobacco use History of diabetes mellitus History of shingles History of GERD Hyperlipidemia by history Hypertension History of skin cancer Osteoporosis Dementia Hypothyroidism Plan: Plan dated 09/11/2017 CBC is normal. PT INR and PTT were normal. Sodium 138 potassium 4.5 chloride 95 CO2 26 normally 9 With a BUN and creatinine of 19 and 0.90. Troponin levels were 0.050 0.035. The rest of the Compazine metabolic profile looked good. N- terminal proBNP was only 45. Chest x-ray is evaluated. Medications are reviewed. The patient could be discharged home on a short course of steroids. Time with Patient: Greater than 30
[2017-09-11 12:35] VITALS: BP 175/80; PULSE 48; TEMP 97.3
--- NOTE | 2017-09-11 14:08 | P.DS ---
Providers Date of admission: 09/11/17 09:05 Expected date of discharge: 09/11/17 Attending physician: Jose M Robertson Consults: 09/11/17 06:11 Consult Physician Routine Consulting Provider: Chris Vargas Consult Reason/Comments: ELEVATED TROPONINS/CHF Do you want consulting provider notified?: Yes, Notify in am Primary care physician: Jose M Robertson Hospital Course: 87-year-old female presented to the emergency room with complaints of not being able to sleep and shortness of breath. Patient said the frequent visits to the emergency room for the same. Patient was evaluated by cardiology and started Imdur. Patient evaluated by pulmonology and they suggested a short course of steroids. Patient stable and ready for discharge home. Patient lives in [facility] Assessment shortness of breath CHF diastolic dysfunction systolic normal elevated troponins history of asthma diabetes type II GERD hyperlipidemia hypertension memory impairment hypothyroidism Plan follow up with family physician Dr. Jose M Robertson Patient Condition at Discharge: Fair Plan - Discharge Summary New Discharge Prescriptions: New Isosorbide Mononitrate ER [Imdur] 30 mg PO DAILY #30 tab.er.24h predniSONE 20 mg PO DAILY 5 Days #5 tab Continue Solifenacin Succinate [Vesicare] 5 mg PO QAM Simvastatin [Zocor] 40 mg PO HS Montelukast [Singulair] 10 mg PO HS Ipratropium-Albuterol Nebulize [Duoneb 0.5 mg-3 mg/3 ml Soln] 3 ml INHALATION RT-QID PRN PRN Reason: Shortness Of Breath Ramipril [Altace] 10 mg PO QAM Docusate [Colace] 100 mg PO QAM Levothyroxine Sodium [Synthroid] 125 mcg PO DAILY Fluticasone/Salmeterol [Advair 250-50 Diskus] 1 puff INHALATION RT-BID Alendronate Sodium [Fosamax] 70 mg PO MO Albuterol Inhaler [Ventolin Hfa Inhaler] 1 - 2 puff INHALATION RT-Q6H PRN PRN Reason: Shortness Of Breath Acetaminophen [Tylenol] 325 - 650 mg PO Q4H PRN PRN Reason: Pain Aricept 23mg 23 mg PO DAILY LORazepam [Ativan] 0.5 mg PO TID PRN PRN Reason: Anxiety Vilazodone HCl [Viibryd] 20 mg PO DAILY Omeprazole [PriLOSEC] 10 mg PO QAM Hydrochlorothiazide 12.5 mg PO DAILY Prevagen Extra Strength 1 tab PO DAILY Nitrofurantoin Macrocrystal [Macrodantin] 50 mg PO DAILY Discharge Medication List Docusate [Colace] 100 mg PO QAM 02/14/14 [History] Fluticasone/Salmeterol [Advair 250-50 Diskus] 1 puff INHALATION RT-BID 02/14/14 [History] Ipratropium-Albuterol Nebulize [Duoneb 0.5 mg-3 mg/3 ml Soln] 3 ml INHALATION RT -QID PRN 02/14/14 [History] Levothyroxine Sodium [Synthroid] 125 mcg PO DAILY 02/14/14 [History] Montelukast [Singulair] 10 mg PO HS 02/14/14 [History] Ramipril [Altace] 10 mg PO QAM 02/14/14 [History] Simvastatin [Zocor] 40 mg PO HS 02/14/14 [History] Solifenacin Succinate [Vesicare] 5 mg PO QAM 02/14/14 [History] Alendronate Sodium [Fosamax] 70 mg PO MO 08/04/14 [History] Acetaminophen [Tylenol] 325 - 650 mg PO Q4H PRN 08/05/14 [History] Albuterol Inhaler [Ventolin Hfa Inhaler] 1 - 2 puff INHALATION RT-Q6H PRN [History] Aricept 23mg 23 mg PO DAILY 05/15/16 [History] LORazepam [Ativan] 0.5 mg PO TID PRN 05/15/16 [History] Vilazodone HCl [Viibryd] 20 mg PO DAILY 05/15/16 [History] Omeprazole [PriLOSEC] 10 mg PO QAM 07/03/16 [History] Hydrochlorothiazide 12.5 mg PO DAILY 09/11/17 [History] Isosorbide Mononitrate ER [Imdur] 30 mg PO DAILY #30 tab.er.24h 09/11/17 [Rx] Nitrofurantoin Macrocrystal [Macrodantin] 50 mg PO DAILY 09/11/17 [History] Prevagen Extra Strength 1 tab PO DAILY 09/11/17 [History] predniSONE 20 mg PO DAILY 5 Days #5 tab 09/11/17 [Rx] Follow up Appointment(s)/Referral(s): Jose M Robertson MD [Primary Care Provider] - 09/18/17 9:00 am (Saturday) [facility] Visiting Nurse, [NON-STAFF] - As Needed
[2017-09-11 14:38] LABS: Creatine Kinase MB 0.8 ng/mL (0.0-2.4); Troponin I 0.024 ng/mL (0.000-0.034)
[2017-09-11 18:46] LABS: Hemoglobin A1C 6.2 % (4.0-6.0)
[2017-09-11] MEDS ORDERED: SYMBICORT 80-4.5 MCG INHALER INHALATION SCH (20:00)
[2017-09-11] MEDS ORDERED: ATORVASTATIN 20 MG TAB PO SCH (21:00)
[2017-09-11] MEDS ORDERED: MONTELUKAST 10 MG TAB PO SCH (21:00)
[2017-09-12] MEDS ORDERED: LEVOTHYROXINE 125 MCG TAB PO SCH (06:30)
[2017-09-12] MEDS ORDERED: PANTOPRAZOLE 40 MG TABLET PO SCH (07:30)
[2017-09-12] MEDS ORDERED: ISOSORBIDE MONONITRATE ER 30 MG TAB.ER.24H PO SCH (09:00)
[2017-09-12] MEDS ORDERED: LISINOPRIL 10 MG TAB PO SCH (09:00)
[2017-09-12] MEDS ORDERED: ASPIRIN 81 MG PO SCH (09:00)
[2017-09-12] MEDS ORDERED: LISINOPRIL 20 MG TAB PO SCH (09:00)
[2017-09-12] MEDS ORDERED: NON-FORMULARY DRUG (Vilazodone Hcl [Viibryd] 20 MG) PO SCH (09:00)
[2017-09-12] MEDS ORDERED: ATORVASTATIN 40 MG TAB PO SCH (09:00)
[2017-09-12] MEDS ORDERED: ASPIRIN 325 MG TAB PO SCH (09:00)
[2017-09-12] MEDS ORDERED: HYDROCHLOROTHIAZIDE 12.5 MG CAP PO SCH (09:00)
[2017-09-12] MEDS ORDERED: TROSPIUM CHLORIDE 20 MG TABLET PO SCH (09:00)
[2017-09-12] MEDS ORDERED: DOCUSATE 100 MG CAP PO SCH (09:00)
[2017-09-12] MEDS ORDERED: ARICEPT 23 MG PO SCH (09:00)
[2017-09-16] MEDS ORDERED: NON-FORMULARY DRUG (Alendronate Sodium [Fosamax] 70 MG) PO SCH (11:15)
== END 2017-09-11 15:10 | disposition home or self-care (01) | DRG 292 ==
LOC: EC 01:21 → 6SEL 03:42 → OBSVTOIN 09:05
PROVIDERS: ADMIT Family Medicine; ATTEND Family Medicine
DX: I11.0 Hypertensive heart disease with heart failure (principal); J98.11 Atelectasis; I50.33 Acute on chronic diastolic (congestive) heart failure; E03.9 Hypothyroidism, unspecified; E11.9 Type 2 diabetes mellitus without complications; E66.9 Obesity, unspecified; Z68.31 Body mass index [BMI] 31.0-31.9, adult; E78.5 Hyperlipidemia, unspecified; F03.90 Unspecified dementia, unspecified severity, without behavioral disturbance, psychotic disturbance, mood disturbance, and anxiety; I44.0 Atrioventricular block, first degree; I71.2 Thoracic aortic aneurysm, without rupture; J44.9 Chronic obstructive pulmonary disease, unspecified; K21.9 Gastro-esophageal reflux disease without esophagitis; M81.0 Age-related osteoporosis without current pathological fracture; R09.02 Hypoxemia; Z79.83 Long term (current) use of bisphosphonates; Z82.49 Family history of ischemic heart disease and other diseases of the circulatory system; Z85.828 Personal history of other malignant neoplasm of skin; Z86.19 Personal history of other infectious and parasitic diseases; R74.8 Abnormal levels of other serum enzymes; Z87.891 Personal history of nicotine dependence; R00.1 Bradycardia, unspecified; I25.10 Atherosclerotic heart disease of native coronary artery without angina pectoris; Z88.8 Allergy status to other drugs, medicaments and biological substances; Z79.890 Hormone replacement therapy; Z79.899 Other long term (current) drug therapy; Z98.49 Cataract extraction status, unspecified eye
CPT/HCPCS: 36415; 71046; 80053; 82550; 82553; 83036; 83735; 83880; 84484; 85025; 85610; 85730; 93005; 99285

== ENCOUNTER 2017-09-17 08:02 | Emergency (ER) | payer MEDICARE, BC ==
--- NOTE | 2017-09-17 08:13 | ED ---
General Adult HPI - General Chief complaint: Shortness of Breath Stated complaint: SOB, weakness Source: patient, EMS Mode of arrival: EMS Limitations: no limitations - History of Present Illness Initial comments: Dictation was produced using [employer] dictation software. please excuse any grammatical, word or spelling errors. Chief Complaint: 87-year-old female past medical history of asthma presents with shortness of breath 1 day. History of Present Illness: Patient is an 87-year-old female past medical history of asthma, cancer, GERD, hypertension presents with difficulty in breathing 1 day. Patient has a past medical history of asthma. Patient is brought in by EMS reports that patient called for shortness of breath. Patient endorses this. Patient has a past medical history of asthma. Prior to EMS being notified. Patient administered herself with a breathing treatment. Patient denies any lower extremity symptoms. Denies any cough, constitutional symptoms or increase in sputum production. Patient has a past medical history of heart failure. The ROS documented in this emergency department record has been reviewed and confirmed by me. Those systems with pertinent positive or negative responses have been documented in the HPI. All other systems are other negative and/or noncontributory. - Related Data Home Medications Medication Instructions Recorded Confirmed Docusate [Colace] 100 mg PO QAM 02/14/14 09/17/17 Fluticasone/Salmeterol [Advair 1 puff INHALATION RT-BID 02/14/14 09/17/17 250-50 Diskus] Ipratropium-Albuterol Nebulize 3 ml INHALATION RT-QID PRN 02/14/14 09/17/17 [Duoneb 0.5 mg-3 mg/3 ml Soln] Levothyroxine Sodium [Synthroid] 125 mcg PO DAILY 02/14/14 09/17/17 Montelukast [Singulair] 10 mg PO HS 02/14/14 09/17/17 Ramipril [Altace] 10 mg PO QAM 02/14/14 09/17/17 Simvastatin [Zocor] 40 mg PO HS 02/14/14 09/17/17 Solifenacin Succinate [Vesicare] 5 mg PO QAM 02/14/14 09/17/17 Alendronate Sodium [Fosamax] 70 mg PO MO 08/04/14 09/17/17 Acetaminophen [Tylenol] 325 - 650 mg PO Q4H PRN 08/05/14 09/17/17 Albuterol Inhaler [Ventolin Hfa 1 - 2 puff INHALATION RT-Q6H PRN 08/05/14 Inhaler] Aricept 23mg 23 mg PO DAILY 05/15/16 09/17/17 LORazepam [Ativan] 0.5 mg PO TID PRN 05/15/16 09/17/17 Vilazodone HCl [Viibryd] 20 mg PO DAILY 05/15/16 09/17/17 Omeprazole [PriLOSEC] 10 mg PO QAM 07/03/16 09/17/17 Hydrochlorothiazide 12.5 mg PO DAILY 09/11/17 09/17/17 Nitrofurantoin Macrocrystal 50 mg PO DAILY 09/11/17 09/17/17 [Macrodantin] Prevagen Extra Strength 1 tab PO DAILY 09/11/17 09/17/17 Previous Rx's Medication Instructions Recorded Isosorbide Mononitrate ER [Imdur] 30 mg PO DAILY #30 tab.er.24h 09/11/17 Allergies Allergy/AdvReac Type Severity Reaction Status Date / Time steroid AdvReac Confusion Uncoded 09/11/17 01:28 Review of Systems ROS Statement: Those systems with pertinent positive or pertinent negative responses have been documented in the HPI. ROS Other: All systems not noted in ROS Statement are negative. Past Medical History Past Medical History: Asthma, Cancer, Diabetes Mellitus, GERD/Reflux, Hyperlipidemia, Hypertension, Memory Impairment, Thyroid Disorder Additional Past Medical History / Comment(s): hypoglycemia, shingles long time ago; skin ca History of Any Multi-Drug Resistant Organisms: None Reported Past Surgical History: No Surgical Hx Reported Additional Past Surgical History / Comment(s): rectocele repair, cataracts Past Anesthesia/Blood Transfusion Reactions: No Reported Reaction Past Psychological History: No Psychological Hx Reported Smoking Status: Former smoker Past Alcohol Use History: None Reported Past Drug Use History: None Reported - Past Family History Father Family Medical History: Myocardial Infarction ([place]) Mother History Unknown: Yes General Exam - General Exam Comments Initial Comments: PHYSICAL EXAM: General Impression: Alert and oriented x3, not in acute distress HEENT: Normocephalic atraumatic, extra-ocular movements intact, pupils equal and reactive to light bilaterally, mucous membranes moist. Cardiovascular: Heart regular rate and rhythm, S1&S2 audible, no murmurs, rubs or gallops Chest: Lungs clear to auscultation bilaterally, no rhonchi, no wheeze, no rales Abdomen: Bowel sounds present, abdomen soft, non-tender, non-distended, no organomegaly Musculoskeletal: Pulses present and equal in all extremities, no peripheral edema Motor: Power 5/5 bilaterally, no focal deficits noted Neurological: CN II-XII grossly intact, no focal motor or sensory deficits noted Skin: Intact with no visualized rashes Psych: Normal affect and mood Limitations: no limitations Course Vital Signs 09/17/17 09/17/17 09/17/17 08:05 08:08 08:14 Temperature 98.3 F Pulse Rate 47 L Respiratory 16 16 Rate Blood Pressure 202/77 176/78 O2 Sat by Pulse 95 Oximetry 09/17/17 09/17/17 09/17/17 09:17 09:43 09:55 Temperature Pulse Rate 62 53 L 59 L Respiratory 16 Rate Blood Pressure 164/73 O2 Sat by Pulse 100 Oximetry 09/17/17 09/17/17 09/17/17 10:29 10:38 10:50 Temperature Pulse Rate 56 L 53 L 54 L Respiratory 17 Rate Blood Pressure 169/72 O2 Sat by Pulse 95 Oximetry Medical Decision Making - Medical Decision Making ED course: 87-year-old female past medical history of heart failure, asthma presents with shortness of breath 24 hours. Patient denies any chest pain. As upon arrival shows heart rate of 47, blood pressure 202/77, pulse vital signs within acceptable limits. Patient is a poor historian. She states that she was told she has a weak heart however is unable to confirm if she had an echocardiogram.Laboratory evaluation obtained. CBC unremarkable. Coag panel unremarkable. D-dimer is 4.18. Metabolic panel is negative. Current enzymes are negative. Chest x-ray was obtained showing bilateral lobe atelectasis. Given elevated d-dimer CT angios the chest was obtained showing scattered infiltrates likely atelectasis. Patient given breathing treatment and steroids. She was observed in the emergency department for several hours. She is found to be in stable condition. Patient states she is not short of breath. Patient was recently admitted 5 days ago and was discharge after a 2 day admission. She was advised by pulmonology and cardiology. Patient states she does not know why she was here because she wasn't having significant shortness of breath. Patient appears well at this time. She is hemodynamically stable. She is not showing any increase signs of work of breathing. I believe that patient can be managed outpatient. Patient is with family. Family states that they scheduled an appointment with her primary care physician at 2 PM later today. I believe this is reasonable disposition care that patient appears stable at this time and CT angios the chest is negative. EKG interpretation: Ventricular rate 52. Interval to 28, QRS 86, QTC 4:30. No OR prolongation, no QTC prolongation, no ST or T-wave changes noted. Overall, this EKG is unremarkable - Lab Data Result diagrams: 09/17/17 08:10 09/17/17 08:10 Lab Results 09/17/17 09/17/17 09/17/17 Range/Units 08:10 08:10 08:10 WBC 6.6 (3.8-10.6) k/uL RBC 3.83 (3.80-5.40) m/uL Hgb 11.6 (11.4-16.0) gm/dL Hct 35.9 (34.0-46.0) % MCV 93.7 (80.0-100.0) fL MCH 30.3 (25.0-35.0) pg MCHC 32.4 (31.0-37.0) g/dL RDW 14.3 (11.5-15.5) % Plt Count 191 (150-450) k/uL Neutrophils % 56 % Lymphocytes % 30 % Monocytes % 9 % Eosinophils % 2 % Basophils % 0 % Neutrophils # 3.7 (1.3-7.7) k/uL Lymphocytes # 2.0 (1.0-4.8) k/uL Monocytes # 0.6 (0-1.0) k/uL Eosinophils # 0.1 (0-0.7) k/uL Basophils # 0.0 (0-0.2) k/uL PT (9.0-12.0) sec INR (<1.2) APTT (22.0-30.0) sec D-Dimer (<0.60) mg/L FEU Sodium 134 L (137-145) mmol/L Potassium 4.2 (3.5-5.1) mmol/L Chloride 100 (98-107) mmol/L Carbon Dioxide 27 (22-30) mmol/L Anion Gap 7 mmol/L BUN 20 H (7-17) mg/dL Creatinine 0.94 (0.52-1.04) mg/dL Est GFR (CKD-EPI)AfAm 63 (>60 ml/min/1.73 sqM) Est GFR (CKD-EPI)NonAf 54 (>60 ml/min/1.73 sqM) Glucose 96 (74-99) mg/dL Calcium 9.1 (8.4-10.2) mg/dL Magnesium 2.3 (1.6-2.3) mg/dL Total Bilirubin 0.5 (0.2-1.3) mg/dL AST 24 (14-36) U/L ALT 34 (9-52) U/L Alkaline Phosphatase 69 (38-126) U/L Total Creatine Kinase 55 (30-135) U/L CK-MB (CK-2) 0.7 (0.0-2.4) ng/mL CK-MB (CK-2) Rel Index 1.3 Troponin I <0.012 (0.000-0.034) ng/mL NT-Pro-B Natriuret Pep pg/mL Total Protein 6.1 L (6.3-8.2) g/dL Albumin 3.8 (3.5-5.0) g/dL 09/17/17 09/17/17 09/17/17 Range/Units 08:10 08:10 08:10 WBC (3.8-10.6) k/uL RBC (3.80-5.40) m/uL Hgb (11.4-16.0) gm/dL Hct (34.0-46.0) % MCV (80.0-100.0) fL MCH (25.0-35.0) pg MCHC (31.0-37.0) g/dL RDW (11.5-15.5) % Plt Count (150-450) k/uL Neutrophils % % Lymphocytes % % Monocytes % % Eosinophils % % Basophils % % Neutrophils # (1.3-7.7) k/uL Lymphocytes # (1.0-4.8) k/uL Monocytes # (0-1.0) k/uL Eosinophils # (0-0.7) k/uL Basophils # (0-0.2) k/uL PT 9.9 (9.0-12.0) sec INR 1.0 (<1.2) APTT 21.7 L (22.0-30.0) sec D-Dimer 4.18 H (<0.60) mg/L FEU Sodium (137-145) mmol/L Potassium (3.5-5.1) mmol/L Chloride (98-107) mmol/L Carbon Dioxide (22-30) mmol/L Anion Gap mmol/L BUN (7-17) mg/dL Creatinine (0.52-1.04) mg/dL Est GFR (CKD-EPI)AfAm (>60 ml/min/1.73 sqM) Est GFR (CKD-EPI)NonAf (>60 ml/min/1.73 sqM) Glucose (74-99) mg/dL Calcium (8.4-10.2) mg/dL Magnesium (1.6-2.3) mg/dL Total Bilirubin (0.2-1.3) mg/dL AST (14-36) U/L ALT (9-52) U/L Alkaline Phosphatase (38-126) U/L Total Creatine Kinase (30-135) U/L CK-MB (CK-2) (0.0-2.4) ng/mL CK-MB (CK-2) Rel Index Troponin I (0.000-0.034) ng/mL NT-Pro-B Natriuret Pep 104 pg/mL Total Protein (6.3-8.2) g/dL Albumin (3.5-5.0) g/dL Disposition Clinical Impression: Dyspnea Disposition: HOME SELF-CARE Condition: Fair Instructions: Dyspnea (ED) Is patient prescribed a controlled substance at d/c from ED?: No Referrals: Jose M Robertson MD [Primary Care Provider] - 1-2 days Time of Disposition: 11:18
[2017-09-17 08:29] LABS: Basophils % (A) 0 %; Eosinophils # (A) 0.1 k/uL (0-0.7); Eosinophils % (A) 2 %; HCT 35.9 % (34.0-46.0); HGB 11.6 gm/dL (11.4-16.0); Lymphocytes % (A) 30 %; MCH 30.3 pg (25.0-35.0); MCHC 32.4 g/dL (31.0-37.0); MCV 93.7 fL (80.0-100.0); Mean Platelet Volume 7.2; Monocytes # (A) 0.6 k/uL (0-1.0); Monocytes % (A) 9 %; Neutrophils # (A) 3.7 k/uL (1.3-7.7); Neutrophils % (A) 56 %; Platelet Count 191 k/uL (150-450); RBC 3.83 m/uL (3.80-5.40); RDW 14.3 % (11.5-15.5); WBC 6.6 k/uL (3.8-10.6)
--- NOTE | 2017-09-17 08:37 | XR ---
EXAMINATION TYPE: XR chest 2V DATE OF EXAM: 09/17/2017 COMPARISON: 09/11/2017 TECHNIQUE: PA and lateral views submitted. HISTORY: Difficulty breathing FINDINGS: Subsegmental consolidation at the lung bases. Heart is enlarged. Arthropathy of the shoulders with di ffuse osteopenia. No pneumothorax or overt failure. Degenerative change of the spine. IMPRESSION: 1. Bilateral lower lobe atelectasis or infiltrate. Findings stable.
[2017-09-17 08:40] LABS: Albumin 3.8 g/dL (3.5-5.0); Calcium 9.1 mg/dL (8.4-10.2); Magnesium 2.3 mg/dL (1.6-2.3); Potassium 4.2 mmol/L (3.5-5.1); Total Bilirubin 0.5 mg/dL (0.2-1.3); Total Protein 6.1 g/dL (6.3-8.2)
[2017-09-17 08:46] LABS: Prothrombin Time 9.9 sec (9.0-12.0)
[2017-09-17 08:56] LABS: Partial Thromboplastin Time 21.7 sec (22.0-30.0)
[2017-09-17 08:59] LABS: Creatine Kinase 55 U/L (30-135)
[2017-09-17] MEDS ORDERED: DEXAMETHASONE 4 MG TAB PO STA (09:01)
[2017-09-17] MEDS ORDERED: ALBUTEROL NEBULIZED 2.5 MG/3 ML INHALATION STA (09:01)
[2017-09-17] MEDS ORDERED: IPRATROPIUM 0.5 MG/2.5 ML NEBU INHALATION STA (09:01)
[2017-09-17 09:11] LABS: Creatine Kinase MB 0.7 ng/mL (0.0-2.4); Troponin I <0.012 ng/mL (0.000-0.034)
--- NOTE | 2017-09-17 10:12 | CT ---
CT CHEST FOR PULMONARY EMBOLISM. EXAMINATION TYPE: CT angio chest DATE OF EXAM: 09/17/2017 INDICATION: Elevated d-dimer CT DLP: 570 mGycm, Automated exposure control for dose reduction was used. CONTRAST: Patient injected with 100 mL of Isovue 370. COMPARISON: 07/03/2016 TECHNIQUE: CT of the chest is performed on a spiral scan at 2 mm thick sections. Study is performed with intravenous contrast timed for evaluation for pulmonary embolism. This will limit additional po rtions of the evaluation. 3-D MIP images reconstructed by the technologist are reviewed on the compu ter in the coronal and sagittal planes. FINDINGS: No persistent filling defects are evident to suggest an acute pulmonary embolism. No mediastinal or hilar adenopathy enlarged by CT criteria is evident. The ascending aorta diameter at the level of the main pulmonary artery is 3.9 cm. The main pulmonary artery diameter at the bifur cation is 2.4 cm. Mild to moderate coronary artery calcification is present. There is some atelectasis adjacent to the descending thoracic aorta. Some streak opacities are at the lung bases including the lingula likely on the basis of atelectasis. Limited CT section through the upper abdomen. There is a 1.4 cm hypodensity within the inferior right lobe liver may be a cyst measuring 0 Hounsfield units. An additional cyst near the gallbladder bed f bren measuring 1.1 cm and -9 Hounsfield units. IMPRESSIONS: 1. No acute pulmonary embolism. 2. Scattered infiltrates most likely on the basis of atelectasis. Follow-up can be performed for conf irmation.
[2017-09-17 10:56] VITALS: BP 169/72; PULSE 54; RESP 17
[2017-09-17 11:34] VITALS: TEMP 98.2
== END 2017-09-17 11:45 | disposition home or self-care (01) ==
LOC: EC 08:02
DX: R06.02 Shortness of breath (principal); J98.11 Atelectasis; R79.1 Abnormal coagulation profile; J45.909 Unspecified asthma, uncomplicated; E11.9 Type 2 diabetes mellitus without complications; K21.9 Gastro-esophageal reflux disease without esophagitis; E78.5 Hyperlipidemia, unspecified; I11.0 Hypertensive heart disease with heart failure; I50.9 Heart failure, unspecified; E07.9 Disorder of thyroid, unspecified; Z85.828 Personal history of other malignant neoplasm of skin; Z87.891 Personal history of nicotine dependence; Z79.51 Long term (current) use of inhaled steroids; Z79.899 Other long term (current) drug therapy; Z88.8 Allergy status to other drugs, medicaments and biological substances
CPT/HCPCS: 36415; 94644; 93005; 85379; 83880; 80053; 82550; 82553; 83735; 84484; 85025; 85610; 85730; 71046; 71275; 99285; J8540; Q9967

== ENCOUNTER 2017-12-08 20:40 | Emergency (ER) | payer MEDICARE, BC ==
[2017-12-08 20:49] VITALS: TEMP 98
[2017-12-08] MEDS ORDERED: SODIUM CHLORIDE 0.9% 500 ML 500 ML IV STA (21:15)
--- NOTE | 2017-12-08 22:14 | ED ---
General Adult HPI - General Chief complaint: Weakness Stated complaint: Weakness Source: patient, EMS Mode of arrival: EMS Limitations: no limitations - History of Present Illness Initial comments: Dictation was produced using [employer] dictation software. please excuse any grammatical, word or spelling errors. Chief Complaint: 87-year-old female with multiple comorbidities presents with presyncopal symptoms. History of Present Illness: Patient is 79-year-old female who lives in assisted living facility. She states she was in the chair when she became a little faint. Patient has had multiple episodes like this in the past. She is accompanied by her son states that she has multiple problems. She does have good follow-up with her medical collections specialist and jig borer. She does have follow- up appointments this week. Patient denies any constitutional symptoms. Patient is a poor historian. The ROS documented in this emergency department record has been reviewed and confirmed by me. Those systems with pertinent positive or negative responses have been documented in the HPI. All other systems are other negative and/or noncontributory. - Related Data Home Medications Medication Instructions Recorded Confirmed Docusate [Colace] 100 mg PO QAM 02/14/14 12/08/17 Fluticasone/Salmeterol [Advair 1 puff INHALATION RT-BID 02/14/14 12/08/17 250-50 Diskus] Ipratropium-Albuterol Nebulize 3 ml INHALATION RT-QID PRN 02/14/14 12/08/17 [Duoneb 0.5 mg-3 mg/3 ml Soln] Levothyroxine Sodium [Synthroid] 125 mcg PO DAILY 02/14/14 12/08/17 Montelukast [Singulair] 10 mg PO HS 02/14/14 12/08/17 Ramipril [Altace] 10 mg PO QAM 02/14/14 12/08/17 Simvastatin [Zocor] 40 mg PO HS 02/14/14 12/08/17 Solifenacin Succinate [Vesicare] 5 mg PO QAM 02/14/14 12/08/17 Alendronate Sodium [Fosamax] 70 mg PO MO 08/04/14 12/08/17 Acetaminophen [Tylenol] 325 - 650 mg PO Q4H PRN 08/05/14 12/08/17 Albuterol Inhaler [Ventolin Hfa 1 - 2 puff INHALATION RT-Q6H PRN 08/05/14 Inhaler] Aricept 23mg 23 mg PO DAILY 05/15/16 12/08/17 LORazepam [Ativan] 0.5 mg PO TID 05/15/16 12/08/17 Vilazodone HCl [Viibryd] 40 mg PO DAILY 05/15/16 12/08/17 Omeprazole [PriLOSEC] 10 mg PO QAM 07/03/16 12/08/17 Hydrochlorothiazide 12.5 mg PO DAILY 09/11/17 12/08/17 Nitrofurantoin Macrocrystal 50 mg PO DAILY 09/11/17 12/08/17 [Macrodantin] Prevagen Extra Strength 1 tab PO DAILY 09/11/17 12/08/17 Ciprofloxacin HCl [Cipro] 250 mg PO Q12HR 12/08/17 12/08/17 predniSONE 20 mg PO DAILY 12/08/17 12/08/17 Previous Rx's Medication Instructions Recorded Isosorbide Mononitrate ER [Imdur] 30 mg PO DAILY #30 tab.er.24h 09/11/17 Allergies Allergy/AdvReac Type Severity Reaction Status Date / Time steroid AdvReac Confusion Uncoded 09/11/17 01:28 Review of Systems ROS Statement: Those systems with pertinent positive or pertinent negative responses have been documented in the HPI. ROS Other: All systems not noted in ROS Statement are negative. Past Medical History Past Medical History: Asthma, Cancer, Diabetes Mellitus, GERD/Reflux, Hyperlipidemia, Hypertension, Memory Impairment, Thyroid Disorder Additional Past Medical History / Comment(s): hypoglycemia, shingles long time ago; skin ca History of Any Multi-Drug Resistant Organisms: None Reported Past Surgical History: No Surgical Hx Reported Additional Past Surgical History / Comment(s): rectocele repair, cataracts Past Anesthesia/Blood Transfusion Reactions: No Reported Reaction Past Psychological History: No Psychological Hx Reported Smoking Status: Former smoker Past Alcohol Use History: None Reported Past Drug Use History: None Reported - Past Family History Father Family Medical History: Myocardial Infarction ([place]) Mother History Unknown: Yes General Exam - General Exam Comments Initial Comments: PHYSICAL EXAM: General Impression: Alert and oriented x3, not in acute distress HEENT: Normocephalic atraumatic, extra-ocular movements intact, pupils equal and reactive to light bilaterally, mucous membranes moist. Cardiovascular: Heart regular rate and rhythm, S1&S2 audible, no murmurs, rubs or gallops Chest: Lungs clear to auscultation bilaterally, no rhonchi, no wheeze, no rales Abdomen: Bowel sounds present, abdomen soft, non-tender, non-distended, no organomegaly Musculoskeletal: Pulses present and equal in all extremities, no peripheral edema Motor: Power 5/5 bilaterally, no focal deficits noted Neurological: CN II-XII grossly intact, no focal motor or sensory deficits noted Skin: Intact with no visualized rashes Psych: Normal affect and mood Limitations: no limitations Course Vital Signs 12/08/17 12/08/17 12/08/17 20:44 20:46 21:00 Temperature 98.0 F Pulse Rate 54 L 58 L Respiratory 16 20 Rate Blood Pressure 165/87 165/87 O2 Sat by Pulse 95 95 99 Oximetry 12/08/17 12/08/17 12/08/17 21:30 22:00 22:30 Temperature Pulse Rate 64 56 L 48 L Respiratory 22 21 18 Rate Blood Pressure 175/93 159/89 O2 Sat by Pulse 87 L 92 L 96 Oximetry 12/08/17 23:00 Temperature Pulse Rate Respiratory 18 Rate Blood Pressure 169/91 O2 Sat by Pulse Oximetry Medical Decision Making - Medical Decision Making ED course: 87 old female presents with symptoms of presyncope. He rates that the symptoms occurred while at rest. Vital signs upon arrival shows heart rate of 54, rest of vital signs within normal limits. She was is currently being treated for urinary tract infection. She has completed multiple days of ciprofloxacin.Laboratory evaluation obtained. CBC unremarkable. Coag panel unremarkable. Patient's sodium is 129. Rest of metabolic panel is unremarkable. No lactacidosis. TSH is 20.5. Rest of cardiac enzymes are negative. Urinalysis shows findings of urinary tract infection. She is undergoing antibiotics for infection. Patient and patient's family member expressed increasing desire to not be admitted to the hospital. Patient typically having symptoms of symptomatic hyponatremia. Patient given 500 mL of fluid. Patient eats very little salt. Patient given some salt tabs. She does have an appointment with her primary care physician at 11:30 AM tomorrow. Patient to be discharged. At time of discharge patient is hemodynamically stable. Patient states she feels much better. - Lab Data Result diagrams: 12/08/17 22:00 12/08/17 22:30 Lab Results 12/08/17 12/08/17 12/08/17 Range/Units 21:42 22:00 22:00 WBC 10.0 (3.8-10.6) k/uL RBC 4.20 (3.80-5.40) m/uL Hgb 13.1 (11.4-16.0) gm/dL Hct 39.3 (34.0-46.0) % MCV 93.5 (80.0-100.0) fL MCH 31.1 (25.0-35.0) pg MCHC 33.3 (31.0-37.0) g/dL RDW 14.3 (11.5-15.5) % Plt Count 211 (150-450) k/uL Neutrophils % 66 % Lymphocytes % 21 % Monocytes % 10 % Eosinophils % 0 % Basophils % 0 % Neutrophils # 6.6 (1.3-7.7) k/uL Lymphocytes # 2.2 (1.0-4.8) k/uL Monocytes # 1.0 (0-1.0) k/uL Eosinophils # 0.0 (0-0.7) k/uL Basophils # 0.0 (0-0.2) k/uL PT (9.0-12.0) sec INR (<1.2) APTT (22.0-30.0) sec Sodium (137-145) mmol/L Potassium (3.5-5.1) mmol/L Chloride (98-107) mmol/L Carbon Dioxide (22-30) mmol/L Anion Gap mmol/L BUN (7-17) mg/dL Creatinine (0.52-1.04) mg/dL Est GFR (CKD-EPI)AfAm (>60 ml/min/1.73 sqM) Est GFR (CKD-EPI)NonAf (>60 ml/min/1.73 sqM) Glucose (74-99) mg/dL Plasma Lactic Acid Nii 1.3 (0.7-2.0) mmol/L Calcium (8.4-10.2) mg/dL Phosphorus (2.5-4.5) mg/dL Magnesium (1.6-2.3) mg/dL Total Bilirubin (0.2-1.3) mg/dL AST (14-36) U/L ALT (9-52) U/L Alkaline Phosphatase (38-126) U/L Total Creatine Kinase (30-135) U/L CK-MB (CK-2) (0.0-2.4) ng/mL CK-MB (CK-2) Rel Index Troponin I (0.000-0.034) ng/mL Total Protein (6.3-8.2) g/dL Albumin (3.5-5.0) g/dL TSH (0.465-4.680) mIU/L Urine Color Light Yellow Urine Appearance Clear (Clear) Urine pH 7.0 (5.0-8.0) Ur Specific [place] 1.006 (1.001-1.035) Urine Protein Negative (Negative) Urine Glucose (UA) Negative (Negative) Urine Ketones Negative (Negative) Urine Blood Small H (Negative) Urine Nitrite Positive H (Negative) Urine Bilirubin Negative (Negative) Urine Urobilinogen <2.0 (<2.0) mg/dL Ur Leukocyte Esterase Large H (Negative) Urine RBC 2 (0-5) /hpf Urine WBC 26 H (0-5) /hpf Urine Bacteria Rare H (None) /hpf Urine Mucus Rare H (None) /hpf 12/08/17 12/08/17 12/08/17 Range/Units 22:00 22:30 22:30 WBC (3.8-10.6) k/uL RBC (3.80-5.40) m/uL Hgb (11.4-16.0) gm/dL Hct (34.0-46.0) % MCV (80.0-100.0) fL MCH (25.0-35.0) pg MCHC (31.0-37.0) g/dL RDW (11.5-15.5) % Plt Count (150-450) k/uL Neutrophils % % Lymphocytes % % Monocytes % % Eosinophils % % Basophils % % Neutrophils # (1.3-7.7) k/uL Lymphocytes # (1.0-4.8) k/uL Monocytes # (0-1.0) k/uL Eosinophils # (0-0.7) k/uL Basophils # (0-0.2) k/uL PT 10.3 (9.0-12.0) sec INR 1.1 (<1.2) APTT 21.6 L (22.0-30.0) sec Sodium 129 L (137-145) mmol/L Potassium 4.3 (3.5-5.1) mmol/L Chloride 97 L (98-107) mmol/L Carbon Dioxide 24 (22-30) mmol/L Anion Gap 8 mmol/L BUN 26 H (7-17) mg/dL Creatinine 0.92 (0.52-1.04) mg/dL Est GFR (CKD-EPI)AfAm 65 (>60 ml/min/1.73 sqM) Est GFR (CKD-EPI)NonAf 56 (>60 ml/min/1.73 sqM) Glucose 126 H (74-99) mg/dL Plasma Lactic Acid Nii (0.7-2.0) mmol/L Calcium 8.9 (8.4-10.2) mg/dL Phosphorus 4.0 (2.5-4.5) mg/dL Magnesium 2.0 (1.6-2.3) mg/dL Total Bilirubin 0.5 (0.2-1.3) mg/dL AST 29 (14-36) U/L ALT 43 (9-52) U/L Alkaline Phosphatase 56 (38-126) U/L Total Creatine Kinase 113 (30-135) U/L CK-MB (CK-2) 1.7 (0.0-2.4) ng/mL CK-MB (CK-2) Rel Index 1.5 Troponin I <0.012 (0.000-0.034) ng/mL Total Protein 6.0 L (6.3-8.2) g/dL Albumin 3.5 (3.5-5.0) g/dL TSH 20.500 H (0.465-4.680) mIU/L Urine Color Urine Appearance (Clear) Urine pH (5.0-8.0) Ur Specific [place] (1.001-1.035) Urine Protein (Negative) Urine Glucose (UA) (Negative) Urine Ketones (Negative) Urine Blood (Negative) Urine Nitrite (Negative) Urine Bilirubin (Negative) Urine Urobilinogen (<2.0) mg/dL Ur Leukocyte Esterase (Negative) Urine RBC (0-5) /hpf Urine WBC (0-5) /hpf Urine Bacteria (None) /hpf Urine Mucus (None) /hpf Disposition Clinical Impression: Hyponatremia Disposition: HOME SELF-CARE Condition: Good Instructions: Hyponatremia (ED) Is patient prescribed a controlled substance at d/c from ED?: No Referrals: Jose M Robertson MD [Primary Care Provider] - 1-2 days Time of Disposition: 23:58
[2017-12-08 22:15] LABS: Basophils % (A) 0 %; Eosinophils % (A) 0 %; HCT 39.3 % (34.0-46.0); HGB 13.1 gm/dL (11.4-16.0); Lymphocytes # (A) 2.2 k/uL (1.0-4.8); Lymphocytes % (A) 21 %; MCH 31.1 pg (25.0-35.0); MCHC 33.3 g/dL (31.0-37.0); MCV 93.5 fL (80.0-100.0); Mean Platelet Volume 7.6; Monocytes % (A) 10 %; Neutrophils # (A) 6.6 k/uL (1.3-7.7); Neutrophils % (A) 66 %; Platelet Count 211 k/uL (150-450); RDW 14.3 % (11.5-15.5)
[2017-12-08 22:22] LABS: Appearance,Urine Clear (Clear); Bacteria,Urine Rare /hpf; Bilirubin,Urine Negative (Negative); Blood,Urine Small (Negative); Color,Urine Light Yellow; Glucose,Urine (UA) Negative (Negative); Ketones,Urine Negative (Negative); Leukocyte Esterase,Urine Large (Negative); Mucus,Urine Rare /hpf; Nitrite,Urine Positive (Negative); Protein,Urine Negative (Negative); RBC,Urine 2 /hpf (0-5); Specific Gravity,Urine 1.006 (1.001-1.035); Urobilinogen,Urine <2.0 mg/dL (<2.0); WBC,Urine 26 /hpf (0-5)
[2017-12-08 22:32] LABS: INR 1.1 (<1.2); Prothrombin Time 10.3 sec (9.0-12.0)
--- NOTE | 2017-12-08 22:32 | XR ---
EXAMINATION TYPE: XR chest 2V DATE OF EXAM: 12/08/2017 COMPARISON: 12/02/2017 HISTORY: Weakness TECHNIQUE: Frontal and lateral views of the chest are obtained. FINDINGS: There is no heart failure nor confluent pneumonic infiltrate. There are small linear densi ty at the left lung base. There is no pleural effusion. Bony thorax appears intact. There are chest l shawn. There is old healed fracture left humeral head. IMPRESSION: Minimal scarring or subsegmental atelectasis at the left lung base is improved compared to last exam. No heart failure.
[2017-12-08 22:39] LABS: Partial Thromboplastin Time 21.6 sec (22.0-30.0)
[2017-12-08 23:06] LABS: Albumin 3.5 g/dL (3.5-5.0); Calcium 8.9 mg/dL (8.4-10.2); Potassium 4.3 mmol/L (3.5-5.1); Total Bilirubin 0.5 mg/dL (0.2-1.3)
[2017-12-08 23:16] LABS: Creatine Kinase 113 U/L (30-135)
[2017-12-08 23:29] LABS: Creatine Kinase MB 1.7 ng/mL (0.0-2.4); Troponin I <0.012 ng/mL (0.000-0.034)
[2017-12-08] MEDS ORDERED: SODIUM CHLORIDE TAB 1 GM TAB PO STA (23:57)
[2017-12-09 00:27] VITALS: BP 171/85; PULSE 54; RESP 12
== END 2017-12-09 00:28 | disposition home or self-care (01) ==
LOC: EC 20:40
DX: E87.1 Hypo-osmolality and hyponatremia (principal); N39.0 Urinary tract infection, site not specified; J45.909 Unspecified asthma, uncomplicated; E11.9 Type 2 diabetes mellitus without complications; I10 Essential (primary) hypertension; E78.5 Hyperlipidemia, unspecified; K21.9 Gastro-esophageal reflux disease without esophagitis; Z79.51 Long term (current) use of inhaled steroids; Z79.899 Other long term (current) drug therapy; Z88.8 Allergy status to other drugs, medicaments and biological substances; Z87.891 Personal history of nicotine dependence
CPT/HCPCS: 36415; 71046; 80053; 81001; 82550; 82553; 83605; 83735; 84100; 84443; 84484; 85025; 85610; 85730; 93005; 99285

== ENCOUNTER 2018-01-19 06:24 | Emergency (ER) | payer MEDICARE, BC ==
[2018-01-19 06:52] VITALS: PULSE 54
[2018-01-19] MEDS ORDERED: SODIUM CHLORIDE 0.9% 1,000 ML IV STA (07:26)
--- NOTE | 2018-01-19 07:31 | ED ---
General Adult HPI - General Chief complaint: Urogenital Stated complaint: possible UTI Time Seen by Provider: 01/19/18 07:11 Source: patient, EMS, RN notes reviewed Mode of arrival: EMS Limitations: no limitations - History of Present Illness Initial comments: This a 83-year-old female presents emergency department via EMS chief complaint of generalized weakness, shaky feeling and dysuria. Patient states she's had some urinary symptoms last 3-4 days in which she has frequency of urination and burning with urination. She has a urinary tract infections in the past. She has some lower abdominal pain denies any flank pain or any back pain. Denies fever, chills, night sweats. Patient states she woke up today and this feels shaky and this feels more generalized weak and usual. She denies any chest pain , shortness breath, headache or dizziness. Patient denies any URI symptoms. Patient states she is a diabetic but her blood sugar has been running within normal limits. - Related Data Home Medications Medication Instructions Recorded Confirmed Docusate [Colace] 100 mg PO QAM 02/14/14 12/08/17 Fluticasone/Salmeterol [Advair 1 puff INHALATION RT-BID 02/14/14 12/08/17 250-50 Diskus] Ipratropium-Albuterol Nebulize 3 ml INHALATION RT-QID PRN 02/14/14 12/08/17 [Duoneb 0.5 mg-3 mg/3 ml Soln] Levothyroxine Sodium [Synthroid] 125 mcg PO DAILY 02/14/14 12/08/17 Montelukast [Singulair] 10 mg PO HS 02/14/14 12/08/17 Ramipril [Altace] 10 mg PO QAM 02/14/14 12/08/17 Simvastatin [Zocor] 40 mg PO HS 02/14/14 12/08/17 Solifenacin Succinate [Vesicare] 5 mg PO QAM 02/14/14 12/08/17 Alendronate Sodium [Fosamax] 70 mg PO MO 08/04/14 12/08/17 Acetaminophen [Tylenol] 325 - 650 mg PO Q4H PRN 08/05/14 12/08/17 Albuterol Inhaler [Ventolin Hfa 1 - 2 puff INHALATION RT-Q6H PRN 08/05/14 Inhaler] Aricept 23mg 23 mg PO DAILY 05/15/16 12/08/17 LORazepam [Ativan] 0.5 mg PO TID 05/15/16 12/08/17 Vilazodone HCl [Viibryd] 40 mg PO DAILY 05/15/16 12/08/17 Omeprazole [PriLOSEC] 10 mg PO QAM 07/03/16 12/08/17 Hydrochlorothiazide 12.5 mg PO DAILY 09/11/17 12/08/17 Nitrofurantoin Macrocrystal 50 mg PO DAILY 09/11/17 12/08/17 [Macrodantin] Prevagen Extra Strength 1 tab PO DAILY 09/11/17 12/08/17 Ciprofloxacin HCl [Cipro] 250 mg PO Q12HR 12/08/17 12/08/17 predniSONE 20 mg PO DAILY 12/08/17 12/08/17 Previous Rx's Medication Instructions Recorded Isosorbide Mononitrate ER [Imdur] 30 mg PO DAILY #30 tab.er.24h 09/11/17 Allergies Allergy/AdvReac Type Severity Reaction Status Date / Time steroid AdvReac Confusion Uncoded 09/11/17 01:28 Review of Systems ROS Statement: Those systems with pertinent positive or pertinent negative responses have been documented in the HPI. ROS Other: All systems not noted in ROS Statement are negative. Past Medical History Past Medical History: Asthma, Cancer, Diabetes Mellitus, GERD/Reflux, Hyperlipidemia, Hypertension, Memory Impairment, Myocardial Infarction ([place]), Pneumonia, Thyroid Disorder Additional Past Medical History / Comment(s): hypoglycemia, shingles long time ago; skin ca History of Any Multi-Drug Resistant Organisms: ESBL Date of last positivie culture/infection: 01/03/18 MDRO Source:: ESBL URINE Past Surgical History: No Surgical Hx Reported Additional Past Surgical History / Comment(s): rectocele repair, cataracts Past Anesthesia/Blood Transfusion Reactions: No Reported Reaction Past Psychological History: No Psychological Hx Reported Smoking Status: Former smoker Past Alcohol Use History: None Reported Past Drug Use History: None Reported - Past Family History Father Family Medical History: Myocardial Infarction ([place]) Mother History Unknown: Yes General Exam Limitations: no limitations General appearance: alert, in no apparent distress Head exam: Present: atraumatic, normocephalic, normal inspection Eye exam: Present: normal appearance, PERRL, EOMI. Absent: scleral icterus, conjunctival injection, periorbital swelling ENT exam: Present: normal oropharynx Neck exam: Present: normal inspection. Absent: tenderness, meningismus, lymphadenopathy Respiratory exam: Present: normal lung sounds bilaterally. Absent: respiratory distress, wheezes, rales, rhonchi, stridor Cardiovascular Exam: Present: regular rate, normal rhythm, normal heart sounds. Absent: systolic murmur, diastolic murmur, rubs, gallop, clicks GI/Abdominal exam: Present: soft, tenderness (Mild suprapubic), normal bowel sounds. Absent: distended, guarding, rebound, rigid Back exam: Absent: CVA tenderness (R), CVA tenderness (L) Neurological exam: Present: alert, oriented X3, CN II-XII intact, reflexes normal. Absent: motor sensory deficit Skin exam: Present: warm, dry, intact, normal color. Absent: rash Course Vital Signs 01/19/18 06:33 Temperature 97.6 F Pulse Rate 54 L Respiratory 18 Rate Blood Pressure 182/74 O2 Sat by Pulse 97 Oximetry Medical Decision Making - Medical Decision Making 79-year-old female presented for multiple complaints. Patient's family member did show up and stated this is an ongoing issue with the patient that she ice to call 911. They do have protocols in place were dispatches supposed to contact family members unfortunately when I were unable to reach family members and EMS arrived. Patient was brought to emergency department for dysuria and shakiness. This is nothing new for the patient. She is on current therapy for urinary tract infection. Patient is her normal baseline per family. She has constant caregiver and physician evaluations. - Lab Data Result diagrams: 01/19/18 07:10 01/19/18 07:10 Lab Results 01/19/18 01/19/18 01/19/18 Range/Units 06:51 07:10 07:10 WBC 5.5 (3.8-10.6) k/uL RBC 4.05 (3.80-5.40) m/uL Hgb 12.8 (11.4-16.0) gm/dL Hct 37.8 (34.0-46.0) % MCV 93.3 (80.0-100.0) fL MCH 31.7 (25.0-35.0) pg MCHC 34.0 (31.0-37.0) g/dL RDW 15.0 (11.5-15.5) % Plt Count 195 (150-450) k/uL Neutrophils % 56 % Lymphocytes % 31 % Monocytes % 8 % Eosinophils % 2 % Basophils % 0 % Neutrophils # 3.1 (1.3-7.7) k/uL Lymphocytes # 1.7 (1.0-4.8) k/uL Monocytes # 0.5 (0-1.0) k/uL Eosinophils # 0.1 (0-0.7) k/uL Basophils # 0.0 (0-0.2) k/uL Sodium 133 L (137-145) mmol/L Potassium 4.7 (3.5-5.1) mmol/L Chloride 100 (98-107) mmol/L Carbon Dioxide 28 (22-30) mmol/L Anion Gap 5 mmol/L BUN 14 (7-17) mg/dL Creatinine 0.82 (0.52-1.04) mg/dL Est GFR (CKD-EPI)AfAm 74 (>60 ml/min/1.73 sqM) Est GFR (CKD-EPI)NonAf 64 (>60 ml/min/1.73 sqM) Glucose 116 H (74-99) mg/dL Plasma Lactic Acid Nii (0.7-2.0) mmol/L Calcium 9.3 (8.4-10.2) mg/dL Total Bilirubin 0.7 (0.2-1.3) mg/dL AST 46 H (14-36) U/L ALT 48 (9-52) U/L Alkaline Phosphatase 48 (38-126) U/L Total Protein 6.8 (6.3-8.2) g/dL Albumin 3.9 (3.5-5.0) g/dL Amylase 64 (30-110) U/L Lipase 75 (23-300) U/L Urine Color Light Yellow Urine Appearance Cloudy H (Clear) Urine pH 7.0 (5.0-8.0) Ur Specific [place] 1.006 (1.001-1.035) Urine Protein Negative (Negative) Urine Glucose (UA) Negative (Negative) Urine Ketones Negative (Negative) Urine Blood Trace H (Negative) Urine Nitrite Negative (Negative) Urine Bilirubin Negative (Negative) Urine Urobilinogen <2.0 (<2.0) mg/dL Ur Leukocyte Esterase Large H (Negative) Urine RBC 4 (0-5) /hpf Urine WBC 24 H (0-5) /hpf Ur Squamous Epith Cells 9 H (0-4) /hpf Urine Bacteria Many H (None) /hpf Urine Mucus Occasional H (None) /hpf 01/19/18 Range/Units 07:10 WBC (3.8-10.6) k/uL RBC (3.80-5.40) m/uL Hgb (11.4-16.0) gm/dL Hct (34.0-46.0) % MCV (80.0-100.0) fL MCH (25.0-35.0) pg MCHC (31.0-37.0) g/dL RDW (11.5-15.5) % Plt Count (150-450) k/uL Neutrophils % % Lymphocytes % % Monocytes % % Eosinophils % % Basophils % % Neutrophils # (1.3-7.7) k/uL Lymphocytes # (1.0-4.8) k/uL Monocytes # (0-1.0) k/uL Eosinophils # (0-0.7) k/uL Basophils # (0-0.2) k/uL Sodium (137-145) mmol/L Potassium (3.5-5.1) mmol/L Chloride (98-107) mmol/L Carbon Dioxide (22-30) mmol/L Anion Gap mmol/L BUN (7-17) mg/dL Creatinine (0.52-1.04) mg/dL Est GFR (CKD-EPI)AfAm (>60 ml/min/1.73 sqM) Est GFR (CKD-EPI)NonAf (>60 ml/min/1.73 sqM) Glucose (74-99) mg/dL Plasma Lactic Acid Nii 1.1 (0.7-2.0) mmol/L Calcium (8.4-10.2) mg/dL Total Bilirubin (0.2-1.3) mg/dL AST (14-36) U/L ALT (9-52) U/L Alkaline Phosphatase (38-126) U/L Total Protein (6.3-8.2) g/dL Albumin (3.5-5.0) g/dL Amylase (30-110) U/L Lipase (23-300) U/L Urine Color Urine Appearance (Clear) Urine pH (5.0-8.0) Ur Specific [place] (1.001-1.035) Urine Protein (Negative) Urine Glucose (UA) (Negative) Urine Ketones (Negative) Urine Blood (Negative) Urine Nitrite (Negative) Urine Bilirubin (Negative) Urine Urobilinogen (<2.0) mg/dL Ur Leukocyte Esterase (Negative) Urine RBC (0-5) /hpf Urine WBC (0-5) /hpf Ur Squamous Epith Cells (0-4) /hpf Urine Bacteria (None) /hpf Urine Mucus (None) /hpf Disposition Clinical Impression: UTI (urinary tract infection), Dementia Disposition: HOME SELF-CARE Condition: Stable Instructions: Urinary Tract Infection in Women (ED) Additional Instructions: Continue antibiotics as directed.Please return to the Emergency Department if symptoms worsen or any other concerns. Is patient prescribed a controlled substance at d/c from ED?: No Referrals: Jose M Robertson MD [Primary Care Provider] - 1-2 days Time of Disposition: 08:38
[2018-01-19 07:51] LABS: Appearance,Urine Cloudy (Clear); Bacteria,Urine Many /hpf; Bilirubin,Urine Negative (Negative); Blood,Urine Trace (Negative); Color,Urine Light Yellow; Glucose,Urine (UA) Negative (Negative); Ketones,Urine Negative (Negative); Leukocyte Esterase,Urine Large (Negative); Mucus,Urine Occasional /hpf; Nitrite,Urine Negative (Negative); Protein,Urine Negative (Negative); RBC,Urine 4 /hpf (0-5); Specific Gravity,Urine 1.006 (1.001-1.035); Squamous Epithelial Cell,Urine 9 /hpf (0-4); Urobilinogen,Urine <2.0 mg/dL (<2.0); WBC,Urine 24 /hpf (0-5)
[2018-01-19 08:08] LABS: Basophils % (A) 0 %; Eosinophils # (A) 0.1 k/uL (0-0.7); Eosinophils % (A) 2 %; HCT 37.8 % (34.0-46.0); HGB 12.8 gm/dL (11.4-16.0); Lymphocytes # (A) 1.7 k/uL (1.0-4.8); Lymphocytes % (A) 31 %; MCH 31.7 pg (25.0-35.0); MCV 93.3 fL (80.0-100.0); Mean Platelet Volume 7.3; Monocytes # (A) 0.5 k/uL (0-1.0); Monocytes % (A) 8 %; Neutrophils # (A) 3.1 k/uL (1.3-7.7); Neutrophils % (A) 56 %; Platelet Count 195 k/uL (150-450); RBC 4.05 m/uL (3.80-5.40); WBC 5.5 k/uL (3.8-10.6)
[2018-01-19 08:27] LABS: Albumin 3.9 g/dL (3.5-5.0); Calcium 9.3 mg/dL (8.4-10.2); Total Bilirubin 0.7 mg/dL (0.2-1.3); Total Protein 6.8 g/dL (6.3-8.2)
[2018-01-19 08:33] LABS: Potassium 4.7 mmol/L (3.5-5.1)
[2018-01-19 08:43] VITALS: BP 163/77; RESP 20
[2018-01-19 08:53] VITALS: TEMP 97.9
== END 2018-01-19 08:49 | disposition home or self-care (01) ==
LOC: EC 06:24
DX: N39.0 Urinary tract infection, site not specified (principal); F03.90 Unspecified dementia, unspecified severity, without behavioral disturbance, psychotic disturbance, mood disturbance, and anxiety; R53.1 Weakness; J45.909 Unspecified asthma, uncomplicated; E78.5 Hyperlipidemia, unspecified; I10 Essential (primary) hypertension; K21.9 Gastro-esophageal reflux disease without esophagitis; E11.9 Type 2 diabetes mellitus without complications; E07.9 Disorder of thyroid, unspecified; Z87.891 Personal history of nicotine dependence; Z88.8 Allergy status to other drugs, medicaments and biological substances; Z79.51 Long term (current) use of inhaled steroids; Z79.52 Long term (current) use of systemic steroids; Z79.899 Other long term (current) drug therapy; Z85.828 Personal history of other malignant neoplasm of skin
CPT/HCPCS: 36415; 80053; 81001; 82150; 83605; 83690; 84484; 85025; 87040; 87077; 87086; 87186; 96360; 99285

== ENCOUNTER 2018-10-08 | Inpatient (IN) | payer MEDICARE, BC ==
[2018-10-08] MEDS: SODIUM CHLORIDE 0.9% 500 ML 500 ML IV SCH (00:33)
[2018-10-08 00:52] LABS: Anisocytosis Slight; Basophils # (A) 0.1 k/uL (0-0.2); Basophils % (A) 1 %; Eosinophils # (A) 0.1 k/uL (0-0.7); Eosinophils % (A) 1 %; HCT 37.5 % (34.0-46.0); HGB 12.7 gm/dL (11.4-16.0); Lymphocytes # (A) 0.3 k/uL (1.0-4.8); Lymphocytes % (A) 4 %; MCH 30.9 pg (25.0-35.0); MCHC 33.9 g/dL (31.0-37.0); MCV 91.1 fL (80.0-100.0); Mean Platelet Volume 7.3; Monocytes # (A) 0.1 k/uL (0-1.0); Monocytes % (A) 1 %; Neutrophils # (A) 7.8 k/uL (1.3-7.7); Neutrophils % (A) 93 %; Platelet Count 169 k/uL (150-450); RBC 4.12 m/uL (3.80-5.40); RDW 16.2 % (11.5-15.5); WBC 8.5 k/uL (3.8-10.6)
--- NOTE | 2018-10-08 00:56 | XR ---
History: ITS.REASON XR Reason: Fever Exam: XR CXR 2 VIEWS Comparison: FINDINGS: Bilateral basilar streaky opacities may represent atelectasis or developing infiltrate not excluded. No evidence of pleural effusion. The cardiac silhouette again appears enlarged. Bilateral shoulder degenerative changes. IMPRESSION: Bilateral basilar streaky opacities may represent atelectasis or developing infiltrate not excluded. No evidence of pleural effusion. The cardiac silhouette again appears enlarged.
[2018-10-08 00:58] LABS: Partial Thromboplastin Time 22.9 sec (22.0-30.0); Prothrombin Time 10.4 sec (9.0-12.0)
[2018-10-08 01:44] LABS: Appearance,Urine Turbid (Clear); Bacteria,Urine Many /hpf; Bilirubin,Urine Negative (Negative); Blood,Urine Moderate (Negative); Color,Urine Yellow; Glucose,Urine (UA) Negative (Negative); Hyaline Casts,Urine 47 /lpf (0-2); Ketones,Urine Negative (Negative); Leukocyte Esterase,Urine Large (Negative); Mucus,Urine Many /hpf; Nitrite,Urine Negative (Negative); PH, Urine 5.5 (5.0-8.0); Protein,Urine 2+ (Negative); RBC,Urine 49 /hpf (0-5); Specific Gravity,Urine 1.019 (1.001-1.035); Squamous Epithelial Cell,Urine 7 /hpf (0-4); Urobilinogen,Urine <2.0 mg/dL (<2.0); WBC,Urine >182 /hpf (0-5)
[2018-10-08] MEDS ORDERED: HEPARIN SODIUM,PORCINE 5,000 UNIT/ML 1 ML VIAL IV PRN (02:32)
[2018-10-08] MEDS ORDERED: HEPARIN SODIUM,PORCINE 5,000 UNIT/ML 1 ML VIAL IV ONE (02:32)
[2018-10-08] MEDS ORDERED: HEPARIN SOD,PORK IN 0.45% NACL 25,000 UNIT in 0.45% NACL 1 250ML.BAG IV SCH (02:45)
[2018-10-08 03:01] LABS: Albumin 3.4 g/dL (3.5-5.0); Calcium 8.7 mg/dL (8.4-10.2); Total Bilirubin 0.7 mg/dL (0.2-1.3)
--- NOTE | 2018-10-08 03:15 | ED ---
General Adult HPI - General Source: EMS Mode of arrival: EMS Limitations: altered mental status <Maribel Ambriz - Last Filed: 10/08/18 02:56> <Darrell Washington - Last Filed: 10/13/18 08:38> - General Chief complaint: Shortness of Breath Stated complaint: Fever,altered mental status Time Seen by Provider: 10/08/18 00:20 - History of Present Illness Initial comments: 88-year-old female patient presents to the emergency department today for evaluation of shortness of breath and fever. Patient is currently residing at [facility]. She does have a history of dementia and is a poor historian. Family member states that earlier this afternoon she developed shortness of breath. She was found to be febrile. Patient does have history of pneumonia and urinary tract infection. Denies any chest pain or shortness of breath. She denies any pain in her abdomen. Denies any nausea or vomiting. (Maribel Ambirz) - Related Data Home Medications Medication Instructions Recorded Confirmed Docusate [Colace] 100 mg PO QAM 02/14/14 10/08/18 Fluticasone/Salmeterol [Advair 1 puff INHALATION RT-BID PRN 02/14/14 10/08/18 250-50 Diskus] Ipratropium-Albuterol Nebulize 3 ml INHALATION RT-QID PRN 02/14/14 10/08/18 [Duoneb 0.5 mg-3 mg/3 ml Soln] Ramipril [Altace] 10 mg PO QAM 02/14/14 10/08/18 Simvastatin [Zocor] 40 mg PO HS 02/14/14 10/08/18 Alendronate Sodium [Fosamax] 70 mg PO MO 08/04/14 10/08/18 Acetaminophen [Tylenol] 325 - 650 mg PO TID PRN 08/05/14 10/08/18 Albuterol Inhaler [Ventolin Hfa 1 - 2 puff INHALATION RT-Q6H PRN 08/05/14 10/08/18 Inhaler] LORazepam [Ativan] 0.5 mg PO BID 05/15/16 10/08/18 Omeprazole [PriLOSEC] 10 mg PO QAM 07/03/16 10/08/18 Nitrofurantoin Macrocrystal 50 mg PO DAILY 09/11/17 10/08/18 [Macrodantin] Cholecalciferol [Vitamin D3 (25 5,000 unit PO DAILY 10/08/18 10/08/18 Mcg = 1000 Iu)] Clotrimazole/Betamethasone Dip 1 applic TOPICAL DAILY 10/08/18 10/08/18 [Lotrisone Cream] Ensure 1 can PO DAILY@1200 10/08/18 10/08/18 Furosemide [Lasix] 20 mg PO DAILY 10/08/18 10/08/18 Levothyroxine Sodium [Synthroid] 150 mcg PO [id number] 10/08/18 10/08/18 Magnesium Hydroxide [Milk of 1,200 mg PO DAILY PRN 10/08/18 10/08/18 Magnesia] Naproxen 500 mg PO BID 10/08/18 10/08/18 Potassium Chloride ER [K-Dur 10] 10 meq PO DAILY 10/08/18 10/08/18 Sennosides-Docusate Sodium 1 tab PO DAILY 10/08/18 10/08/18 [Senokot-S] Allergies Allergy/AdvReac Type Severity Reaction Status Date / Time steroid AdvReac Confusion Uncoded 10/08/18 07:32 Review of Systems ROS Other: All systems not noted in ROS Statement are negative. <Maribel Ambriz - Last Filed: 10/08/18 02:56> ROS Other: All systems not noted in ROS Statement are negative. <Darrell Washington - Last Filed: 10/13/18 08:38> ROS Statement: Those systems with pertinent positive or pertinent negative responses have been documented in the HPI. Past Medical History Past Medical History: Asthma, Cancer, Diabetes Mellitus, GERD/Reflux, Hyperlipidemia, Hypertension, Memory Impairment, Myocardial Infarction ([place]), Pneumonia, Thyroid Disorder Additional Past Medical History / Comment(s): hypoglycemia, shingles long time ago; skin ca, History of Any Multi-Drug Resistant Organisms: ESBL Date of last positivie culture/infection: 01/03/18 MDRO Source:: ESBL URINE Past Surgical History: No Surgical Hx Reported Additional Past Surgical History / Comment(s): rectocele repair, cataracts Past Anesthesia/Blood Transfusion Reactions: No Reported Reaction Past Psychological History: No Psychological Hx Reported Smoking Status: Former smoker Past Alcohol Use History: None Reported Past Drug Use History: None Reported - Past Family History Father Family Medical History: Myocardial Infarction ([place]) Mother History Unknown: Yes <Maribel Ambriz Vic - Last Filed: 10/08/18 02:56> General Exam Limitations: altered mental status General appearance: alert, in no apparent distress, other (Well-developed, well- nourished, pleasantly confused elderly female patient in no acute distress. Vital signs upon presentation are temperature 100.9F, pulse 99, respirations 25, blood pressure 99/54, pulse ox 96% on room air.) Eye exam: Present: normal appearance, PERRL, EOMI. Absent: scleral icterus, conjunctival injection, periorbital swelling ENT exam: Present: normal exam, normal oropharynx, mucous membranes moist Respiratory exam: Present: normal lung sounds bilaterally. Absent: respiratory distress, wheezes, rales, rhonchi, stridor Cardiovascular Exam: Present: normal rhythm, tachycardia, normal heart sounds. Absent: systolic murmur, diastolic murmur, rubs, gallop, clicks GI/Abdominal exam: Present: soft, normal bowel sounds. Absent: distended, tenderness, guarding, rebound, rigid Neurological exam: Present: alert, CN II-XII intact. Absent: oriented X3 (Oriented 1) Psychiatric exam: Present: normal affect, normal mood Skin exam: Present: warm, dry, intact, normal color. Absent: rash <Maribel Ambriz Vic - Last Filed: 10/08/18 02:56> Course Vital Signs 10/08/18 10/08/18 10/08/18 00:03 01:45 03:57 Temperature 100.9 F H 98.4 F 98.3 F Pulse Rate 99 84 62 Respiratory 25 H 22 22 Rate Blood Pressure 99/54 94/39 97/66 O2 Sat by Pulse 96 97 95 Oximetry 10/08/18 04:17 Temperature Pulse Rate 71 Respiratory 18 Rate Blood Pressure 102/55 O2 Sat by Pulse 96 Oximetry EKG Findings - EKG Comments: EKG Findings:: EKG obtained at 09 shows normal sinus rhythm with ventricular rate of 100, LA interval 168, QRS duration 86, QT 362, QTc 466. <Maribel Ambriz - Last Filed: 10/08/18 02:56> Medical Decision Making - Lab Data Result diagrams: 10/08/18 00:14 - Radiology Data Radiology results: report reviewed, image reviewed <Maribel Ambriz - Last Filed: 10/08/18 02:56> - Lab Data Result diagrams: 10/08/18 00:14 10/08/18 06:10 <Darrell Washington - Last Filed: 10/13/18 08:38> - Medical Decision Making 88-year-old female patient sent to the emergency department today for evaluation of fever and shortness of breath. Physical examination did reveal clear equal lung sounds. She was tachycardic and febrile upon arrival. Labs reviewed and did reveal normal white blood cell count. Urinalysis positive for UTI. Patient's EKG showed sinus rhythm with a rate of 100. Troponin was 0.720. She denied chest pain. She will be started on antibiotics for urinary tract infe ction. We started heparin for anticoagulation. She'll be admitted for further evaluation by cardiology. Troponins will be repeated. Family member updated. (Marible Ambriz) I saw this patient in conjunction with the physician therapist's assistant. I performed independent history and physical exam. Agree with case management. (Darrell Washington) - Lab Data Lab Results 10/08/18 10/08/18 10/08/18 Range/Units 00:14 00:14 00:14 WBC 8.5 (3.8-10.6) k/uL RBC 4.12 (3.80-5.40) m/uL Hgb 12.7 (11.4-16.0) gm/dL Hct 37.5 (34.0-46.0) % MCV 91.1 (80.0-100.0) fL MCH 30.9 (25.0-35.0) pg MCHC 33.9 (31.0-37.0) g/dL RDW 16.2 H (11.5-15.5) % Plt Count 169 (150-450) k/uL Neutrophils % 93 % Lymphocytes % 4 % Monocytes % 1 % Eosinophils % 1 % Basophils % 1 % Neutrophils # 7.8 H (1.3-7.7) k/uL Lymphocytes # 0.3 L (1.0-4.8) k/uL Monocytes # 0.1 (0-1.0) k/uL Eosinophils # 0.1 (0-0.7) k/uL Basophils # 0.1 (0-0.2) k/uL Anisocytosis Slight PT (9.0-12.0) sec INR (<1.2) APTT (22.0-30.0) sec Sodium 129 L (137-145) mmol/L Potassium 4.0 (3.5-5.1) mmol/L Chloride 98 (98-107) mmol/L Carbon Dioxide 20 L (22-30) mmol/L Anion Gap 11 mmol/L BUN 19 H (7-17) mg/dL Creatinine 0.85 (0.52-1.04) mg/dL Est GFR (CKD-EPI)AfAm 71 (>60 ml/min/1.73 sqM) Est GFR (CKD-EPI)NonAf 61 (>60 ml/min/1.73 sqM) Glucose 128 H (74-99) mg/dL Plasma Lactic Acid Nii 1.4 (0.7-2.0) mmol/L Calcium 8.7 (8.4-10.2) mg/dL Total Bilirubin 0.7 (0.2-1.3) mg/dL AST 29 (14-36) U/L ALT 26 (9-52) U/L Alkaline Phosphatase 92 (38-126) U/L Troponin I (0.000-0.034) ng/mL Total Protein 6.0 L (6.3-8.2) g/dL Albumin 3.4 L (3.5-5.0) g/dL Urine Color Urine Appearance (Clear) Urine pH (5.0-8.0) Ur Specific [place] (1.001-1.035) Urine Protein (Negative) Urine Glucose (UA) (Negative) Urine Ketones (Negative) Urine Blood (Negative) Urine Nitrite (Negative) Urine Bilirubin (Negative) Urine Urobilinogen (<2.0) mg/dL Ur Leukocyte Esterase (Negative) Urine RBC (0-5) /hpf Urine WBC (0-5) /hpf Urine WBC Clumps (None) /hpf Ur Squamous Epith Cells (0-4) /hpf Urine Bacteria (None) /hpf Hyaline Casts (0-2) /lpf Urine Mucus (None) /hpf 10/08/18 10/08/18 10/08/18 Range/Units 00:14 00:14 01:01 WBC (3.8-10.6) k/uL RBC (3.80-5.40) m/uL Hgb (11.4-16.0) gm/dL Hct (34.0-46.0) % MCV (80.0-100.0) fL MCH (25.0-35.0) pg MCHC (31.0-37.0) g/dL RDW (11.5-15.5) % Plt Count (150-450) k/uL Neutrophils % % Lymphocytes % % Monocytes % % Eosinophils % % Basophils % % Neutrophils # (1.3-7.7) k/uL Lymphocytes # (1.0-4.8) k/uL Monocytes # (0-1.0) k/uL Eosinophils # (0-0.7) k/uL Basophils # (0-0.2) k/uL Anisocytosis PT 10.4 (9.0-12.0) sec INR 1.0 (<1.2) APTT 22.9 (22.0-30.0) sec Sodium (137-145) mmol/L Potassium (3.5-5.1) mmol/L Chloride (98-107) mmol/L Carbon Dioxide (22-30) mmol/L Anion Gap mmol/L BUN (7-17) mg/dL Creatinine (0.52-1.04) mg/dL Est GFR (CKD-EPI)AfAm (>60 ml/min/1.73 sqM) Est GFR (CKD-EPI)NonAf (>60 ml/min/1.73 sqM) Glucose (74-99) mg/dL Plasma Lactic Acid Nii (0.7-2.0) mmol/L Calcium (8.4-10.2) mg/dL Total Bilirubin (0.2-1.3) mg/dL AST (14-36) U/L ALT (9-52) U/L Alkaline Phosphatase (38-126) U/L Troponin I 0.721 H* (0.000-0.034) ng/mL Total Protein (6.3-8.2) g/dL Albumin (3.5-5.0) g/dL Urine Color Yellow Urine Appearance Turbid H (Clear) Urine pH 5.5 (5.0-8.0) Ur Specific [place] 1.019 (1.001-1.035) Urine Protein 2+ H (Negative) Urine Glucose (UA) Negative (Negative) Urine Ketones Negative (Negative) Urine Blood Moderate H (Negative) Urine Nitrite Negative (Negative) Urine Bilirubin Negative (Negative) Urine Urobilinogen <2.0 (<2.0) mg/dL Ur Leukocyte Esterase Large H (Negative) Urine RBC 49 H (0-5) /hpf Urine WBC >182 H (0-5) /hpf Urine WBC Clumps Many H (None) /hpf Ur Squamous Epith Cells 7 H (0-4) /hpf Urine Bacteria Many H (None) /hpf Hyaline Casts 47 H (0-2) /lpf Urine Mucus Many H (None) /hpf - Radiology Data Two-view x-ray of the chest is obtained. Report was reviewed in its entirety. Impression by Dr. Bro shows bilateral basilar streaky opacities may represent atelectasis or developing infiltrate. No evidence of pleural effusion. The cardiac silhouette again appears enlarged. (Maribel Ambriz) Disposition Decision to Admit Reason: Admit from EC Decision Date: 10/08/18 Decision Time: 03:18 <Maribel Ambriz - Last Filed: 10/08/18 02:56> <Darrell Washington - Last Filed: 10/13/18 08:38> Clinical Impression: NSTEMI (non-ST elevated myocardial infarction), Urinary tract infection Disposition: ADMITTED IP TO THIS HOSP Condition: Fair
[2018-10-08] MEDS ORDERED: NITROGLYCERIN SL TABS 0.4 MG TAB SUBLINGUAL PRN (03:19)
[2018-10-08] MEDS ORDERED: ASPIRIN 81 MG PO STA (03:19)
[2018-10-08] MEDS ORDERED: AZITHROMYCIN 500 MG in SODIUM CHLORIDE 0.9% 250 ML IVPB STA (03:52)
[2018-10-08] MEDS ORDERED: IPRATROPIUM-ALBUTEROL 3 ML NEB INHALATION PRN (04:41)
--- NOTE | 2018-10-08 04:42 | P.HPIM ---
History of Present Illness H&P Date: 10/08/18 The patient is an 88 yo F with a PMH of dementia, COPD, CHF, HTN, HLD, hypothyroidism, recurrent UTIs (on maintainance Nitrofurantoin), resident of [facility] presented to the ED for shortness of breath and fever earlier today. The patient is a very poor historian and history obtained from chart and from her daughter GEN (daughter GEN Lloyd [phone]). The patient was at her baseline until yesterday when she was noted to have shortness of breath. She then developed a fever and became increasingly lethargic and was sent to the ED. The daughter states that the patient's dementia has progressed significantly over the past 3-4 months. She states that the patient is oriented only to self and somewhat to place at baseline. The patient only answering the most basic questions. ROS couldn't be performed. The patient had an extensive evaluation in the emergency room with chest x-ray showing bilateral streaky opacities, suspicious for atelectasis versus developing infiltrates. EKG revealed normal sinus rhythm at 100 bpm with new T- wave inversion in lead [address] segment changes. Laboratory evaluation revealed a troponin of 0.721, lactate 1.4, WBC 8.5, BUN of 19, creatinine 0.85, glucose of 128, and a UA consistent with UTI. Review of Systems Unable to be performed due to dementia Past Medical History Past Medical History: Asthma, Cancer, Heart Failure, Dementia, GERD/Reflux, Hyperlipidemia, Hypertension, Myocardial Infarction ([place]), Pneumonia, Thyroid Disorder Additional Past Medical History / Comment(s): hypoglycemia, shingles long time ago; skin ca, History of Any Multi-Drug Resistant Organisms: ESBL Date of last positivie culture/infection: 01/03/18 MDRO Source:: ESBL URINE Past Surgical History: No Surgical Hx Reported Additional Past Surgical History / Comment(s): rectocele repair, cataracts Past Anesthesia/Blood Transfusion Reactions: No Reported Reaction Past Psychological History: No Psychological Hx Reported Smoking Status: Former smoker Past Alcohol Use History: None Reported Past Drug Use History: None Reported - Past Family History Father Family Medical History: Myocardial Infarction ([place]) Mother History Unknown: Yes Medications and Allergies Home Medications Medication Instructions Recorded Confirmed Type Docusate [Colace] 100 mg PO QAM 02/14/14 12/08/17 History Fluticasone/Salmeterol [Advair 1 puff INHALATION RT-BID 02/14/14 12/08/17 History 250-50 Diskus] Ipratropium-Albuterol Nebulize 3 ml INHALATION RT-QID PRN 02/14/14 12/08/17 History [Duoneb 0.5 mg-3 mg/3 ml Soln] Levothyroxine Sodium [Synthroid] 125 mcg PO DAILY 02/14/14 12/08/17 History Montelukast [Singulair] 10 mg PO HS 02/14/14 12/08/17 History Ramipril [Altace] 10 mg PO QAM 02/14/14 12/08/17 History Simvastatin [Zocor] 40 mg PO HS 02/14/14 12/08/17 History Solifenacin Succinate [Vesicare] 5 mg PO QAM 02/14/14 12/08/17 History Alendronate Sodium [Fosamax] 70 mg PO MO 08/04/14 12/08/17 History Acetaminophen [Tylenol] 325 - 650 mg PO Q4H PRN 08/05/14 12/08/17 History Albuterol Inhaler [Ventolin Hfa 1 - 2 puff INHALATION RT-Q6H PRN 08/05/14 12/08/17 History Inhaler] Aricept 23mg 23 mg PO DAILY 05/15/16 12/08/17 History LORazepam [Ativan] 0.5 mg PO TID 05/15/16 12/08/17 History Vilazodone HCl [Viibryd] 40 mg PO DAILY 05/15/16 12/08/17 History Omeprazole [PriLOSEC] 10 mg PO QAM 07/03/16 12/08/17 History Hydrochlorothiazide 12.5 mg PO DAILY 09/11/17 12/08/17 History Isosorbide Mononitrate ER [Imdur] 30 mg PO DAILY #30 tab.er.24h 09/11/17 12/08/17 Rx Nitrofurantoin Macrocrystal 50 mg PO DAILY 09/11/17 12/08/17 History [Macrodantin] Prevagen Extra Strength 1 tab PO DAILY 09/11/17 12/08/17 History Ciprofloxacin HCl [Cipro] 250 mg PO Q12HR 12/08/17 12/08/17 History predniSONE 20 mg PO DAILY 12/08/17 12/08/17 History Allergies Allergy/AdvReac Type Severity Reaction Status Date / Time steroid AdvReac Confusion Uncoded 09/11/17 01:28 Physical Exam Vitals: Vital Signs Temp Pulse Resp BP Pulse Ox 10/08/18 03:57 98.3 F 62 22 97/66 95 10/08/18 01:45 98.4 F 84 22 94/39 97 10/08/18 00:03 100.9 F H 99 25 H 99/54 96 Intake and Output 10/07/18 10/07/18 10/08/18 14:59 22:59 06:59 Other: Weight 68.039 kg General: Somewhat ill-appearing elderly female with tachypnea, appears at stated age, normal weight Derm: no unusual rashes/lesions no unusual ecchymoses, warm, dry Head: atraumatic, normocephalic, symmetric Eyes: EOMI, no lid lag, anicteric sclera, pupils equal round reactive to light ENT: Nose and ears atraumatic, no thrush, no pharyngeal erythema Neck: No thyromegaly, no cervical lymphadenopathy, trachea midline, supple Mouth: no lip lesion, mucus membranes dry Cardiovascular: S1S2 reg, systolic murmur appreciated, positive posterior tibial pulse bilateral, no edema, capillary refill less than 2 seconds Lungs: Scattered bilateral rhonchi, no accessory muscle use Abdominal: soft, nontender to palpation, no guarding, no appreciable organomegaly, normal bowel sounds Ext: no gross muscle atrophy, muscle strength 4 out of 5 in all 4 extremities grossly, no contractures Neuro: Limited examination since patient not following all commands, no focal deficits noted, moving all extremities Psych: Lethargic, oriented only to self, and it is aware that she is in the hospital, not oriented to time Results CBC & Chem 7: 10/08/18 00:14 10/08/18 00:14 Labs: Abnormal Lab Results - Last 24 Hours (Table) 10/08/18 10/08/18 10/08/18 Range/Units 00:14 00:14 00:14 RDW 16.2 H (11.5-15.5) % Neutrophils # 7.8 H (1.3-7.7) k/uL Lymphocytes # 0.3 L (1.0-4.8) k/uL Sodium 129 L (137-145) mmol/L Carbon Dioxide 20 L (22-30) mmol/L BUN 19 H (7-17) mg/dL Glucose 128 H (74-99) mg/dL Troponin I 0.721 H* (0.000-0.034) ng/mL Total Protein 6.0 L (6.3-8.2) g/dL Albumin 3.4 L (3.5-5.0) g/dL Urine Appearance (Clear) Urine Protein (Negative) Urine Blood (Negative) Ur Leukocyte Esterase (Negative) Urine RBC (0-5) /hpf Urine WBC (0-5) /hpf Urine WBC Clumps (None) /hpf Ur Squamous Epith Cells (0-4) /hpf Urine Bacteria (None) /hpf Hyaline Casts (0-2) /lpf Urine Mucus (None) /hpf 10/08/18 Range/Units 01:01 RDW (11.5-15.5) % Neutrophils # (1.3-7.7) k/uL Lymphocytes # (1.0-4.8) k/uL Sodium (137-145) mmol/L Carbon Dioxide (22-30) mmol/L BUN (7-17) mg/dL Glucose (74-99) mg/dL Troponin I (0.000-0.034) ng/mL Total Protein (6.3-8.2) g/dL Albumin (3.5-5.0) g/dL Urine Appearance Turbid H (Clear) Urine Protein 2+ H (Negative) Urine Blood Moderate H (Negative) Ur Leukocyte Esterase Large H (Negative) Urine RBC 49 H (0-5) /hpf Urine WBC >182 H (0-5) /hpf Urine WBC Clumps Many H (None) /hpf Ur Squamous Epith Cells 7 H (0-4) /hpf Urine Bacteria Many H (None) /hpf Hyaline Casts 47 H (0-2) /lpf Urine Mucus Many H (None) /hpf Assessment and Plan Plan: Sepsis, likely secondary to UTI versus developing community acquired pneumonia -Continue with azithromycin and ceftriaxone -History of ESBL and recurrent UTIs, on maintenance Macrobid -Follow-up urine and blood cultures -Supplemental oxygen NSTEMI -Continue to trend troponin -Heparin infusion -Continue with aspirin, Plavix, statin -Cardiology consult -Cardiac monitoring Hyponatremia -Likely component of poor oral intake with acute illness -Monitor for now Dementia -Dementia at baseline as per daughter, continue with home med Aricept COPD -C/w home med: Duonebs prn HTN -Hold antihypertensives in setting of sepsis and borderline BP and resume as warranted HLD -Continue with statin as initiated for NSTEMI Hypothyroidism -Continue with home dose levothyroxine CHF -Judicious use of IV fluids -Hold Lasix in setting of sepsis DVT prophylaxis -Heparin infusion The patient is admitted with an anticipated greater than 2 midnight stay for evaluation of sepsis secondary to UTI/PNA CODE STATUS: No Code Discussed with: Daughter (POA) Anticipated discharge date: 10/11/[address]: Assisted living A total of 45 minutes was spent on the care of this complex patient more than 50% of the time was spent in counseling and care coordination.
[2018-10-08] MEDS ORDERED: ATORVASTATIN 80 MG TAB PO SCH (05:00)
[2018-10-08] MEDS: CLOPIDOGREL 75 MG TAB PO SCH ×2 (05:53→16:22)
[2018-10-08 05:58] VITALS: RESP 20
[2018-10-08 06:22] LABS: Glucose,Whole Blood 158 mg/dL (75-99)
[2018-10-08 07:47] LABS: Calcium 8.2 mg/dL (8.4-10.2); Potassium 3.8 mmol/L (3.5-5.1)
--- NOTE | 2018-10-08 09:13 | P.CRDCN ---
History of Present Illness Consult date: 10/08/18 Requesting physician: Zhanna Jeffries Reason for Consult (text): abn troponin Chief complaint: Shortness of breath and fever History of present illness: (Is a pleasant 88-year-old female who resides at [facility], she has known severe dementia so most of the history was obtained from the medical record. She has a history of hypertension, diabetes, hyperlipidemia, nonsmoker, history of asthma, was brought to the hospital on this occasion with symptoms of shortness of breath with associated fever. She apparently had been sleeping much more than her usual and was quite lethargic. Chest x-ray on presentation here showed bilateral basilar [place] which may represent atelectasis or developing infiltrate, no evidence of pleural effusion. EKG showed normal sinus rhythm with left anterior fascicular block. I pressure on arrival here 99/50, temperature 100.9, heart rate in the 90s, 96% on 3 L of oxygen. White blood cell count 8.5, hemoglobin 12.7, platelet count 169. Sodium on arrival 129, 132 this morning, potassium 3.8, BUN 19 and creatinine 0.8. Troponins 0.7, 1.1. Positive UTI. Cardiology consultation was requested because of abnormality in troponin. At the time of my examination this morning, patient is resting comfortably in bed, no complaints, quite confused. She did have an echocardiogram with Doppler study performed in July 2017 which revealed an ejection fraction of 55-60%. Past Medical History Past Medical History: Asthma, Cancer, Heart Failure, Dementia, GERD/Reflux, Hyperlipidemia, Hypertension, Pneumonia, Thyroid Disorder Additional Past Medical History / Comment(s): hypoglycemia, shingles long time ago; skin ca, History of Any Multi-Drug Resistant Organisms: ESBL Date of last positivie culture/infection: 01/03/18 MDRO Source:: ESBL URINE Past Surgical History: No Surgical Hx Reported Additional Past Surgical History / Comment(s): rectocele repair, cataracts both eyes Past Anesthesia/Blood Transfusion Reactions: No Reported Reaction Smoking Status: Former smoker - Past Family History Father Family Medical History: Myocardial Infarction ([place]) Mother History Unknown: Yes Additional Family Medical History / Comment(s): heart and kidney disease Medications and Allergies Home Medications Medication Instructions Recorded Confirmed Type Docusate [Colace] 100 mg PO QAM 02/14/14 10/08/18 History Fluticasone/Salmeterol [Advair 1 puff INHALATION RT-BID PRN 02/14/14 10/08/18 History 250-50 Diskus] Ipratropium-Albuterol Nebulize 3 ml INHALATION RT-QID PRN 02/14/14 10/08/18 History [Duoneb 0.5 mg-3 mg/3 ml Soln] Ramipril [Altace] 10 mg PO QAM 02/14/14 10/08/18 History Simvastatin [Zocor] 40 mg PO HS 02/14/14 10/08/18 History Alendronate Sodium [Fosamax] 70 mg PO MO 08/04/14 10/08/18 History Acetaminophen [Tylenol] 325 - 650 mg PO TID PRN 08/05/14 10/08/18 History Albuterol Inhaler [Ventolin Hfa 1 - 2 puff INHALATION RT-Q6H PRN 08/05/14 10/08/18 History Inhaler] LORazepam [Ativan] 0.5 mg PO BID 05/15/16 10/08/18 History Omeprazole [PriLOSEC] 10 mg PO QAM 07/03/16 10/08/18 History Nitrofurantoin Macrocrystal 50 mg PO DAILY 09/11/17 10/08/18 History [Macrodantin] Cholecalciferol [Vitamin D3 (25 5,000 unit PO DAILY 10/08/18 10/08/18 History Mcg = 1000 Iu)] Clotrimazole/Betamethasone Dip 1 applic TOPICAL DAILY 10/08/18 10/08/18 History [Lotrisone Cream] Ensure 1 can PO DAILY@1200 10/08/18 10/08/18 History Furosemide [Lasix] 20 mg PO DAILY 10/08/18 10/08/18 History Levothyroxine Sodium [Synthroid] 150 mcg PO MOTUWETHFRSA 10/08/18 10/08/18 History Magnesium Hydroxide [Milk of 1,200 mg PO DAILY PRN 10/08/18 10/08/18 History Magnesia] Naproxen 500 mg PO BID 10/08/18 10/08/18 History Potassium Chloride ER [K-Dur 10] 10 meq PO DAILY 10/08/18 10/08/18 History Sennosides-Docusate Sodium 1 tab PO DAILY 10/08/18 10/08/18 History [Senokot-S] Allergies Allergy/AdvReac Type Severity Reaction Status Date / Time steroid AdvReac Confusion Uncoded 10/08/18 07:32 Physical Exam Vitals: Vital Signs Temp Pulse Pulse Resp BP BP Pulse Ox 10/08/18 06:46 97 10/08/18 06:44 97.5 F L 70 20 102/52 97 10/08/18 05:58 67 20 10/08/18 05:57 97.5 F L 67 20 102/52 97 10/08/18 04:17 71 18 102/55 96 10/08/18 03:57 98.3 F 62 22 97/66 95 10/08/18 01:45 98.4 F 84 22 94/39 97 10/08/18 00:03 100.9 F H 99 25 H 99/54 96 Intake and Output 10/07/18 10/08/18 10/08/18 22:59 06:59 14:59 Intake Total 350 Output Total 400 250 Balance -50 -250 Intake: Intake, IV Titration 250 Amount Azithromycin 500 mg In 250 Sodium Chloride 0.9% 250 ml @ 250 mls/hr IVPB ONCE STA Rx#:[id number] Oral 100 Output: Urine 400 250 Other: Voiding Method Bedside Commode # Voids 1 Weight 86.8 kg PHYSICAL EXAMINATION: GENERAL: 88-year-old female in no acute distress at the time of my examination HEENT: Head is atraumatic, normocephalic. Pupils equal, round. Sclera anic teric. Conjunctiva are clear. Mucous membranes of the mouth are moist. Neck is supple. There is no elevated jugular venous pressure. No carotid bruit is heard. HEART EXAMINATION: Heart S1, S2 normal. No murmur or gallop heard. CHEST EXAMINATION: Lungs are clear with mild diminished air entry to the bases ABDOMEN: Soft, nontender. Bowel sounds are heard. No organomegaly noted. EXTREMITIES: 2+ peripheral pulses with trace evidence of peripheral edema and no calf tenderness noted]. NEUROLOGIC [paient is awake, alert and oriented times one . . Results 10/08/18 00:14 10/08/18 06:10 Cardiac Enzymes 10/08/18 10/08/18 10/08/18 Range/Units 00:14 00:14 06:10 AST 29 (14-36) U/L Troponin I 0.721 H* 1.170 H* (0.000-0.034) ng/mL Coagulation 10/08/18 Range/Units 00:14 PT 10.4 (9.0-12.0) sec APTT 22.9 (22.0-30.0) sec CBC 10/08/18 Range/Units 00:14 WBC 8.5 (3.8-10.6) k/uL RBC 4.12 (3.80-5.40) m/uL Hgb 12.7 (11.4-16.0) gm/dL Hct 37.5 (34.0-46.0) % Plt Count 169 (150-450) k/uL Comprehensive Metabolic Panel 10/08/18 10/08/18 Range/Units 00:14 06:10 Sodium 129 L 132 L (137-145) mmol/L Potassium 4.0 3.8 (3.5-5.1) mmol/L Chloride 98 100 (98-107) mmol/L Carbon Dioxide 20 L 22 (22-30) mmol/L BUN 19 H 19 H (7-17) mg/dL Creatinine 0.85 0.87 (0.52-1.04) mg/dL Glucose 128 H 158 H (74-99) mg/dL Calcium 8.7 8.2 L (8.4-10.2) mg/dL AST 29 (14-36) U/L ALT 26 (9-52) U/L Alkaline Phosphatase 92 (38-126) U/L Total Protein 6.0 L (6.3-8.2) g/dL Albumin 3.4 L (3.5-5.0) g/dL Current Medications Generic Name Dose Route Start Last Admin Trade Name Freq PRN Reason Stop Dose Admin Albuterol/Ipratropium 3 ml 10/08/18 04:41 Duoneb 0.5 Mg-3 Mg/3 Ml Soln INHALATION RT-QID PRN Shortness Of Breath Or Wheezing Aspirin 325 mg 10/09/18 09:00 Aspirin PO DAILY STELLA Atorvastatin Calcium 80 mg 10/08/18 05:00 10/08/18 05:53 Lipitor PO 80 mg DAILY STELLA Administration Clopidogrel Bisulfate 75 mg 10/08/18 05:00 10/08/18 05:53 Plavix PO 75 mg DAILY STELLA Administration Heparin Sodium (Porcine) 0 unit 10/08/18 02:32 Heparin IV PER PROTOCOL PRN Low PTT Protocol Heparin Sodium/Sodium Chloride 250 mls @ 8.165 mls/hr 10/08/18 02:45 10/08/18 04:04 25,000 unit/ Sodium Chloride IV 12 units/kg/hr .Q24H STELLA 8.165 mls/hr Administration Protocol 12 UNITS/KG/HR Azithromycin 500 mg/ Sodium 250 mls @ 250 mls/hr 10/09/18 06:00 Chloride IVPB DAILY@0600 STELLA Nitroglycerin 0.4 mg 10/08/18 03:19 Nitrostat SUBLINGUAL Q5M PRN Chest Pain Intake and Output 10/07/18 10/08/18 10/08/18 22:59 06:59 14:59 Intake Total 350 Output Total 400 250 Balance -50 -250 Intake: Intake, IV Titration 250 Amount Azithromycin 500 mg In 250 Sodium Chloride 0.9% 250 ml @ 250 mls/hr IVPB ONCE STA Rx#:[id number] Oral 100 Output: Urine 400 250 Other: Voiding Method Bedside Commode # Voids 1 Weight 86.8 kg 10/08/18 00:14 10/08/18 06:10 EKG Interpretations (text) EKG shows a normal sinus rhythm with left anterior fascicular block, nonspecific ST-T wave changes Assessment and Plan Plan: Assessment and plan #1 symptoms of shortness of breath, lethargy, and fever, evidence of a UTI. Chest x-ray shows what may represent atelectasis or developing infiltrate. Patient has been started on IV antibiotics. #2 severe dementia #3 hypertension #4 diabetes #5 hyperlipidemia #6 abnormality in troponin, could be secondary to infection #7 hypothyroidism Plan We will obtain an echocardiogram with Doppler study. Decrease aspirin to 81 mg daily, continue Lipitor, decreasing the dose to 40 mg daily, continue Plavix, further recommendations to follow. DNP note has been reviewed, I agree with a documented findings and plan of care. Patient was seen and examined.
--- NOTE | 2018-10-08 11:04 | ECHOF ---
Referral Reason:abn trop MEASUREMENTS -------- HEIGHT: 165.1 cm WEIGHT: 86.6 kg BP: 102/52 IVSd: 1.3 cm (0.6 - 1.1) LVIDd: 4.0 cm (3.9 - 5.3) LVPWd: 1.6 cm (0.6 - 1.1) IVSs: 1.7 cm LVIDs: 2.2 cm LVPWs: 1.6 cm Ao Diam: 3.6 cm (2.0 - 3.7) AV Cusp: 1.8 cm (1.5 - 2.6) LA Diam: 2.9 cm (2.7 - 3.8) MV E Skinny: 0.74 m/s MV DecT: 237 ms MV A Skinny: 1.05 m/s MV E/A Ratio: 0.71 RAP: 5.00 mmHg RVSP: 18.87 mmHg FINDINGS -------- Resting bradycardia (HR<60bpm). This was a technically difficult study with suboptimal views. The left ventricular size is normal. There is moderate concentric left ventricular hypertrophy. O verall left ventricular systolic function is normal with, an EF between 55 - 60 %. The right ventricle is normal in size. The left atrial size is normal. The right atrial size is normal. Lumason used The aortic valve is trileaflet and appears structurally normal. The mitral valve is normal. There is trace mitral regurgitation. Trace tricuspid regurgitation present. Right ventricular systolic pressure is normal at < 35 mmHg. There is no pulmonic regurgitation present. The aortic root size is normal. Normal inferior vena cava with normal inspiratory collapse consistent with estimated right atrial pre ssure of 5 mmHg. There is no pericardial effusion. CONCLUSIONS -------- 1. Resting bradycardia (HR<60bpm). 2. This was a technically difficult study with suboptimal views. 3. The left ventricular size is normal. 4. There is moderate concentric left ventricular hypertrophy. 5. Overall left ventricular systolic function is normal with, an EF between 55 - 60 %. 6. The right ventricle is normal in size. 7. The left atrial size is normal. 8. The right atrial size is normal. 9. Lumason used 10. The aortic valve is trileaflet and appears structurally normal. 11. The mitral valve is normal. 12. There is trace mitral regurgitation. 13. Trace tricuspid regurgitation present. 14. Right ventricular systolic pressure is normal at < 35 mmHg. 15. There is no pulmonic regurgitation present. 16. The aortic root size is normal. 17. Normal inferior vena cava with normal inspiratory collapse consistent with estimated right atrial pressure of 5 mmHg. 18. There is no pericardial effusion. ANTI T[employer] MISSILEMAN: Valerie Wilson RDCS
[2018-10-08 11:50] LABS: Glucose,Whole Blood 106 mg/dL (75-99)
[2018-10-08 12:46] VITALS: BP 132/76; TEMP 98.5
--- NOTE | 2018-10-08 14:18 | P.DS ---
Providers Date of admission: 10/08/18 03:30 Expected date of discharge: 10/08/18 Attending physician: Casey De Dios MD Consults: 10/08/18 03:19 Consult Physician Urgent Consulting Provider: [facility] Consult Reason/Comments: NSTEMI Do you want consulting provider notified?: Yes Primary care physician: [facility] Course: 88 yo F with a PMH of dementia, COPD, CHF, HTN, HLD, hypothyroidism, recurrent UTIs (on maintainance Nitrofurantoin), resident of [facility] presented to the ED for shortness of breath and fever earlier today. Due to dementia the patient is a very poor historian and history obtained from chart and from her daughter GEN (daughter GEN Lloyd [phone]). The patient was at her baseline until yesterday when she was noted to have shortness of breath. She then developed a fever and became increasingly lethargic and was sent to the ED. The daughter states that the patient's dementia has progressed significantly over the past 3-4 months. She states that the patient is oriented only to self and somewhat to place at baseline. The patient only answering the most basic questions. ROS couldn't be performed. The patient had an extensive evaluation in the emergency room with chest x-ray showing bilateral streaky opacities, suspicious for atelectasis versus developing infiltrates. EKG revealed normal sinus rhythm at 100 bpm with new T-wave inversion in lead [address] segment changes. Laboratory evaluation revealed a troponin of 0.721, lactate 1.4, WBC 8.5, BUN of 19, creatinine 0.85, glucose of 128, and a UA consistent with UTI. When I came probably this patient today he was told that this patient was seen here by mistake, she is supposed to be hospice care. During the admission she w as treated with IV fluids, antibiotics for sepsis/UTI as well as heparin for acute OH. She'll be discharged back to her facility with hospice on consult. Discussed with managed care director and RN. Patient Condition at Discharge: Serious Plan - Discharge Summary Discharge Rx Participant: No New Discharge Prescriptions: No Action Simvastatin [Zocor] 40 mg PO HS Ipratropium-Albuterol Nebulize [Duoneb 0.5 mg-3 mg/3 ml Soln] 3 ml INHALATION RT-QID PRN PRN Reason: Shortness Of Breath Ramipril [Altace] 10 mg PO QAM Docusate [Colace] 100 mg PO QAM Fluticasone/Salmeterol [Advair 250-50 Diskus] 1 puff INHALATION RT-BID PRN PRN Reason: Shortness Of Breath Alendronate Sodium [Fosamax] 70 mg PO MO Albuterol Inhaler [Ventolin Hfa Inhaler] 1 - 2 puff INHALATION RT-Q6H PRN PRN Reason: Shortness Of Breath Acetaminophen [Tylenol] 325 - 650 mg PO TID PRN PRN Reason: Pain LORazepam [Ativan] 0.5 mg PO BID Omeprazole [PriLOSEC] 10 mg PO QAM Nitrofurantoin Macrocrystal [Macrodantin] 50 mg PO DAILY Ensure 1 can PO DAILY@1200 Clotrimazole/Betamethasone Dip [Lotrisone Cream] 1 applic TOPICAL DAILY Magnesium Hydroxide [Milk of Magnesia] 1,200 mg PO DAILY PRN PRN Reason: Constipation Cholecalciferol [Vitamin D3 (25 Mcg = 1000 Iu)] 5,000 unit PO DAILY Sennosides-Docusate Sodium [Senokot-S] 1 tab PO DAILY Potassium Chloride ER [K-Dur 10] 10 meq PO DAILY Naproxen 500 mg PO BID Levothyroxine Sodium [Synthroid] 150 mcg PO MOTUWETHFRSA Furosemide [Lasix] 20 mg PO DAILY Discharge Medication List Docusate [Colace] 100 mg PO QAM 02/14/14 [History] Fluticasone/Salmeterol [Advair 250-50 Diskus] 1 puff INHALATION RT-BID PRN 02/14/14 [History] Ipratropium-Albuterol Nebulize [Duoneb 0.5 mg-3 mg/3 ml Soln] 3 ml INHALATION RT-QID PRN 02/14/14 [History] Ramipril [Altace] 10 mg PO QAM 02/14/14 [History] Simvastatin [Zocor] 40 mg PO HS 02/14/14 [History] Alendronate Sodium [Fosamax] 70 mg PO MO 08/04/14 [History] Acetaminophen [Tylenol] 325 - 650 mg PO TID PRN 08/05/14 [History] Albuterol Inhaler [Ventolin Hfa Inhaler] 1 - 2 puff INHALATION RT-Q6H PRN 08/05/14 [History] LORazepam [Ativan] 0.5 mg PO BID 05/15/16 [History] Omeprazole [PriLOSEC] 10 mg PO QAM 07/03/16 [History] Nitrofurantoin Macrocrystal [Macrodantin] 50 mg PO DAILY 09/11/17 [History] Cholecalciferol [Vitamin D3 (25 Mcg = 1000 Iu)] 5,000 unit PO DAILY 10/08/18 [History] Clotrimazole/Betamethasone Dip [Lotrisone Cream] 1 applic TOPICAL DAILY 10/08/18 [History] Ensure 1 can PO DAILY@1200 10/08/18 [History] Furosemide [Lasix] 20 mg PO DAILY 10/08/18 [History] Levothyroxine Sodium [Synthroid] 150 mcg PO MOTUWETHFRSA 10/08/18 [History] Magnesium Hydroxide [Milk of Magnesia] 1,200 mg PO DAILY PRN 10/08/18 [History] Naproxen 500 mg PO BID 10/08/18 [History] Potassium Chloride ER [K-Dur 10] 10 meq PO DAILY 10/08/18 [History] Sennosides-Docusate Sodium [Senokot-S] 1 tab PO DAILY 10/08/18 [History] Follow up Appointment(s)/Referral(s): Nick Cali MD [Primary Care Provider] - 1-2 days
[2018-10-08 16:17] VITALS: PULSE 64
[2018-10-09] MEDS ORDERED: AZITHROMYCIN 500 MG in SODIUM CHLORIDE 0.9% 250 ML IVPB SCH (06:00)
[2018-10-09] MEDS ORDERED: ASPIRIN 325 MG TAB PO SCH (09:00)
[2018-10-09] MEDS ORDERED: ATORVASTATIN 40 MG TAB PO SCH (09:00)
[2018-10-09] MEDS ORDERED: ASPIRIN 81 MG PO SCH (09:00)
--- NOTE | 2018-10-09 09:49 | CDI ---
Documentation Clarification Form Date: 10/09/18 From: Geraldine Tim Phone: If you have a question regarding this query, please contact Lupe Mejía at [phone] between 8am and 5pm. Admit Date: 10/08/2018 3:30:00 AM Patient Name: Earlene Hauser Visit Number: [id number] Discharge Date: 10/08/2018 6:11:00 PM ATTENTION: The Clinical Documentation Specialists (CDI) and [facility] Coding Staff appreciate your assistance in clarifying documentation. Please respond to the clarification below the line at the bottom and electronically sign. The CDI & [facility] Coding staff will review the response and follow-up if needed. Please note: Queries are made part of the Legal Health Record. If you have any questions, please contact the author of this message via ITS. Dr. Geovanny Murray NSTEMI is documented in the: ED note, H&P and discharge summary. Patient History/Risk Factors: Sepsis, UTI, pneumonia, hypertension Clinical Indicators: Elevated troponin, short of breath Troponin: 0.721, 1.170, 0.894 EKG Results: Normal sinus rhythm, possible left atrial enlargement, left anterior fascicular block, inferior infarct age undetermined Treatment: No treatment, patient was supposed to be hospice care on admission, went home on hospice Consult: Cardiology documentation stated that abnormality in troponin could be secondary to infection In order to capture the severity of condition and necessary documentation specificity, please clarify: NSTEMI Ruled In NSTEMI Ruled Out Other Unable to determine NSTEMI ruled in MTDD
== END 2018-10-08 18:11 | disposition hospice, home (50) | DRG 871 ==
LOC: EC → 3SCARD 03:30
PROVIDERS: ADMIT Internal Medicine; ATTEND Internal Medicine
DX: A41.9 Sepsis, unspecified organism (principal); J18.9 Pneumonia, unspecified organism; I21.4 Non-ST elevation (NSTEMI) myocardial infarction; E87.1 Hypo-osmolality and hyponatremia; J44.0 Chronic obstructive pulmonary disease with (acute) lower respiratory infection; N39.0 Urinary tract infection, site not specified; I11.0 Hypertensive heart disease with heart failure; I50.9 Heart failure, unspecified; E11.9 Type 2 diabetes mellitus without complications; F03.90 Unspecified dementia, unspecified severity, without behavioral disturbance, psychotic disturbance, mood disturbance, and anxiety; I44.4 Left anterior fascicular block; Z51.5 Encounter for palliative care; E03.9 Hypothyroidism, unspecified; E78.5 Hyperlipidemia, unspecified; I25.2 Old myocardial infarction; K21.9 Gastro-esophageal reflux disease without esophagitis; Z79.02 Long term (current) use of antithrombotics/antiplatelets; Z79.82 Long term (current) use of aspirin; Z79.83 Long term (current) use of bisphosphonates; Z79.890 Hormone replacement therapy; Z79.899 Other long term (current) drug therapy; Z79.52 Long term (current) use of systemic steroids; Z87.01 Personal history of pneumonia (recurrent); Z87.440 Personal history of urinary (tract) infections; Z86.19 Personal history of other infectious and parasitic diseases; Z87.891 Personal history of nicotine dependence; Z85.828 Personal history of other malignant neoplasm of skin; Z88.8 Allergy status to other drugs, medicaments and biological substances; Z98.42 Cataract extraction status, left eye; Z98.41 Cataract extraction status, right eye; Z96.1 Presence of intraocular lens; Z82.49 Family history of ischemic heart disease and other diseases of the circulatory system
CPT/HCPCS: 36415; 71046; 80048; 80053; 81001; 83605; 84484; 85025; 85610; 85730; 87040; 87077; 87086; 87186; 93005; 93306; 94640; 96361; 96365; 96368; 96376; 99285